=== PATIENT | female | born 1940 | race Caucasian/White ===

== ENCOUNTER → 2016-11-15 | Outpatient (CLI) | payer MEDICARE ==
--- NOTE | 2016-11-16 09:41 | MM ---
Reason for exam: screening (asymptomatic). Last mammogram was performed 1 year ago. History: Patient is postmenopausal and is nulliparous. Benign excisional biopsy of the left breast. Physical Findings: A clinical breast exam by your physician is recommended on an annual basis and results should be correlated with mammographic findings. MG Screening Mammo w CAD Bilateral CC and MLO view(s) were taken. Prior study comparison: November 13, 2015, bilateral MG screening mammo w CAD. November 12, 2014, bilateral MG screening mammo w CAD. There are scattered fibroglandular densities. No significant changes when compared with prior studies. ASSESSMENT: Benign, BI-RAD 2 RECOMMENDATION: Routine screening mammogram of both breasts in 1 year.
== END | disposition home or self-care (01) ==
LOC: RADMAMWWP 08:29
PROVIDERS: ATTEND Family Medicine
DX: Z12.31 Encounter for screening mammogram for malignant neoplasm of breast (principal)

== ENCOUNTER → 2017-11-16 | Outpatient (CLI) | payer MEDICARE ==
--- NOTE | 2017-11-16 12:26 | MM ---
Reason for exam: screening (asymptomatic). Last mammogram was performed 1 year ago. History: Patient is postmenopausal and is nulliparous. Benign excisional biopsy of the left breast. Physical Findings: A clinical breast exam by your physician is recommended on an annual basis and results should be correlated with mammographic findings. MG Screening Mammo w CAD Bilateral CC and MLO view(s) were taken. XCCL view(s) were taken of the right breast. Prior study comparison: November 15, 2016, bilateral MG screening mammo w CAD. November 13, 2015, bilateral MG screening mammo w CAD. There are scattered fibroglandular densities. No significant changes when compared with prior studies. ASSESSMENT: Benign, BI-RAD 2 RECOMMENDATION: Routine screening mammogram of both breasts in 1 year.
== END | disposition home or self-care (01) ==
LOC: RADMAMWWP 07:46
PROVIDERS: ATTEND Family Medicine
DX: Z12.31 Encounter for screening mammogram for malignant neoplasm of breast (principal)
CPT/HCPCS: 77067

== ENCOUNTER → 2018-10-03 | Outpatient (CLI) | payer MEDICARE ==
--- NOTE | 2018-10-03 10:54 | XR ---
EXAMINATION TYPE: XR chest 2V DATE OF EXAM: 10/03/2018 COMPARISON: NONE HISTORY: History of asthma with shortness of breath for 6 months. TECHNIQUE: Frontal and lateral views of the chest are obtained. FINDINGS: There is chronic parenchymal change without suspicious focal air space opacity, pleural ef fusion, or pneumothorax seen. The cardiac silhouette size is mildly enlarged. Multilevel spurring is seen in the thoracic spine best on lateral view. IMPRESSION: Chronic parenchymal change and mild cardiomegaly without acute pulmonary process.
== END | disposition home or self-care (01) ==
LOC: RADXRMAIN 10:33
PROVIDERS: ATTEND Family Medicine
DX: I51.7 Cardiomegaly (principal)
CPT/HCPCS: 71046

== ENCOUNTER → 2018-11-08 | Outpatient (CLI) | payer MEDICARE ==
--- NOTE | 2018-11-08 16:21 | BD ---
EXAMINATION TYPE: Axial Bone Density DATE OF EXAM: 11/08/2018 COMPARISON: 11.02.2009 CLINICAL HISTORY: 78 YR OLD FEMALE....ICD-10 CODE: Z13.820 OSTEOPOROSIS SCREENING Height: 58 Weight: 160 FRAX RISK QUESTIONS: Glucocorticoids (More than 3mos): YES (Ex: prednisone, prednisolone, methylprednisolone, dexamethasone, and hydrocortisone). RISK FACTORS HISTORY OF: Postmenopausal woman: YES AT AGE 54 Lost more than 2 inches in height since high school: YES Frequent falls: ELDERLY MEDICATIONS: Prednisone or other steroids: ASTHMA INHALERS, STEROIDAL, SYMBICORT AND VENTOLIN How Long: FOR YRS Additional Medications: BP MEDS, DIABETIC MEDS, REFLUX MEDS, STATINS FOR CHOLESTEROL, VIT D AND CALCI UM Additional History: HIATAL HERNIA, HYPERTENSION, DIABETIC, EXAM MEASUREMENTS: Bone mineral densitometry was performed using the [employer] System. Bone mineral density as measured about the Lumbar spine is: ----- L1-L4(G/cm2): 1.333 T Score Values are as follows: ----- L1: 0.6 ----- L2: -0.3 ----- L3: 1.1 ----- L4: 3.1 ----- L1-L4: 1.3 Bone mineral density has: Increased 18.5% since study of: 11.02.2009 Bone mineral density about the R hip (g/cm2): 1.025 Bone mineral density about the L hip (g/cm2): 0.917 T Score values are as follows: -----R Neck: -0.8 -----L Neck: -1.4 -----R Total: 0.1 -----L Total: -0.7 Bone mineral density has: Decreased -3.6% since study of: 11.02.2009 FRAX%s: THERE IS A 17.3% CHANCE FOR A MAJOR OSTEOPOROTIC FX AND A 4.0% FOR HIP.....PROBABILITY OF F X IN 10 YRS TIME IMPRESSION: Osteopenia (T Score between -2.5 and -1). There is slightly increased risk of fracture and the patient may be considered for treatment. Re-Screen 2-5 years. NOTE: T-SCORE=SD OF THE YOUNG ADULT MEAN.
== END ==
LOC: RADBDWWP 08:26
PROVIDERS: ATTEND Family Medicine
DX: M85.80 Other specified disorders of bone density and structure, unspecified site (principal)
CPT/HCPCS: 77080

== ENCOUNTER → 2018-11-19 | Outpatient (CLI) | payer MEDICARE ==
--- NOTE | 2018-11-20 09:16 | MM ---
Reason for exam: screening (asymptomatic). Last mammogram was performed 1 year ago. History: Patient is postmenopausal and is nulliparous. Benign excisional biopsy of the left breast. Physical Findings: A clinical breast exam by your physician is recommended on an annual basis and results should be correlated with mammographic findings. MG Screening Mammo w CAD Bilateral CC and MLO view(s) were taken. Prior study comparison: November 16, 2017, bilateral MG screening mammo w CAD. November 15, 2016, bilateral MG screening mammo w CAD. The breast tissue is heterogeneously dense. This may lower the sensitivity of mammography. There are benign appearing round linear calcifications in the right breast. There is no discrete abnormality. ASSESSMENT: Benign, BI-RAD 2 RECOMMENDATION: Routine screening mammogram of both breasts in 1 year.
== END | disposition home or self-care (01) ==
LOC: RADMAMWWP 08:29
PROVIDERS: ATTEND Family Medicine
DX: Z12.31 Encounter for screening mammogram for malignant neoplasm of breast (principal)
CPT/HCPCS: 77067

== ENCOUNTER 2018-11-26 14:42 | Inpatient (IN) | payer MEDICARE ==
[2018-11-26] MEDS ORDERED: SODIUM CHLORIDE 0.9% 500 ML 500 ML IV STA (15:37)
[2018-11-26] MEDS ORDERED: ALBUTEROL NEBULIZED 2.5 MG/3 ML INHALATION STA (15:37)
[2018-11-26] MEDS ORDERED: AZITHROMYCIN 500 MG in SODIUM CHLORIDE 0.9% 250 ML IVPB STA (15:37)
[2018-11-26] MEDS ORDERED: IPRATROPIUM 0.5 MG/2.5 ML NEBU INHALATION STA (15:37)
--- NOTE | 2018-11-26 15:42 | ED ---
General Adult HPI - General Chief complaint: Shortness of Breath Stated complaint: SOB Time Seen by Provider: 11/26/18 15:23 Source: EMS Mode of arrival: EMS Limitations: no limitations - History of Present Illness Initial comments: Dictation was produced using [employer] dictation software. please excuse any grammatical, word or spelling errors. Chief Complaint: 78-year-old female past medical history asthma, diabetes, dyslipidemia presents with dyspnea 2-3 days. History of Present Illness: Patient is 78-year-old female she states that her dyspnea had acutely worsened over the last 2-3 days. Over the last several weeks she was switched from Qvar to Symbicort by her primary care physician who is managing her asthma. Patient denies any ICU admission or endotracheal intubation secondary to asthma or COPD. Patient reports that her symptoms acutely worsened today. She's been using her rescue inhaler with no resolved. Patient denies any pain complaints. Denies any lower extremity pain or bilateral lower extremity edema. Denies any history of heart failure. Denies any constitutional symptoms. The ROS documented in this emergency department record has been reviewed and confirmed by me. Those systems with pertinent positive or negative responses have been documented in the HPI. All other systems are other negative and/or noncontributory. PHYSICAL EXAM: General Impression: Alert and oriented x3, mild respiratory distress HEENT: Normocephalic atraumatic, extra-ocular movements intact, pupils equal and reactive to light bilaterally, mucous membranes moist. Cardiovascular: Heart regular rate and rhythm, S1&S2 audible, no murmurs, rubs or gallops Chest: Bilateral lung wheezing Abdomen: Bowel sounds present, abdomen soft, non-tender, non-distended, no organomegaly Musculoskeletal: Pulses present and equal in all extremities, no peripheral edema Motor: Power 5/5 bilaterally, no focal deficits noted Neurological: CN II-XII grossly intact, no focal motor or sensory deficits noted Skin: Intact with no visualized rashes Psych: Normal affect and mood ED course: 78-year-old female presents with atypical presentation consistent with asthma versus COPD exacerbation. Vital signs upon arrival shows heart rate of 109. Patient denies any supplemental oxygen use at home. She is hypoxic despite supplemental oxygen. Laboratory evaluation obtained CBC, coag panel, blood gases obtained. Magnesium 1.4. Enzymes negative. Blood gases unremarkable. There is slight CO2 retention however she has normal pH. Chest x-ray shows no right middle lobe infiltrate. Patient given breathing treatments, steroids and antibiotics. Patient be admitted for COPD exacerbation and pneumonia with hypoxic respiratory failure. Pulmonology consult it. EKG interpretation: Ventricular rate 98, normal sinus rhythm, OR interval 134, care is 80, QTc 467. No OR prolongation, no QTC prolongation, no ST or T-wave changes noted. Overall, this EKG is unremarkable - Related Data Home Medications Medication Instructions Recorded Confirmed Albuterol Inhaler [Ventolin 1 - 2 puff INHALATION Q6HR PRN 09/08/15 11/26/18 Inhaler] Cholecalciferol [Vitamin D3] 2,000 unit PO DAILY 09/08/15 11/26/18 Loratadine [Claritin] 10 mg PO DAILY 09/08/15 11/26/18 Multivitamins, Thera [Theragran] 1 each PO DAILY@1200 09/08/15 11/26/18 Omeprazole [PriLOSEC] 20 mg PO AC-BRKFST 09/08/15 11/26/18 metFORMIN HCL [Glucophage] 500 mg PO BID 09/08/15 11/26/18 Albuterol Nebulized (Conc) 2.5 mg INHALATION RT-Q6H 11/26/18 11/26/18 [Ventolin Nebulized (Conc)] Budesonide/Formoterol Fumarate 2 puff INHALATION RT-BID 11/26/18 11/26/18 [Symbicort 160-4.5 Mcg Inhaler] Lovastatin [Mevacor] 60 mg PO HS 11/26/18 11/26/18 Olmesartan Medoxomil 40 g PO DAILY 11/26/18 11/26/18 Triamcinolone 0.1% Cream [Kenalog 1 applic TOPICAL BID 11/26/18 11/26/18 0.1% Cream] Vitamin E 1,000 unit PO DAILY 11/26/18 11/26/18 amLODIPine [Norvasc] 10 mg PO DAILY 11/26/18 11/26/18 Allergies Allergy/AdvReac Type Severity Reaction Status Date / Time aspirin Allergy Rash/Hives Verified 11/26/18 16:22 latex Allergy Rash/Hives Verified 11/26/18 16:22 Penicillins Allergy Unknown Verified 11/26/18 16:22 Childhood venom-honey bee Allergy Dyspnea, Verified 11/26/18 16:22 [bee venom (honey bee)] HIVES Review of Systems ROS Statement: Those systems with pertinent positive or pertinent negative responses have been documented in the HPI. ROS Other: All systems not noted in ROS Statement are negative. Past Medical History Past Medical History: Asthma, Diabetes Mellitus, GERD/Reflux, Hyperlipidemia, Hypertension History of Any Multi-Drug Resistant Organisms: None Reported Past Surgical History: Breast Surgery Additional Past Surgical History / Comment(s): EXC LT BREAST LUMP. COLONOSCOPY , EGD. Past Anesthesia/Blood Transfusion Reactions: No Reported Reaction Past Psychological History: No Psychological Hx Reported Smoking Status: Former smoker Past Alcohol Use History: None Reported Past Drug Use History: None Reported - Past Family History Mother Sister(s) Family Medical History: Cancer General Exam Limitations: no limitations Course Vital Signs 11/26/18 11/26/18 11/26/18 14:47 14:48 14:52 Temperature 99.6 F Pulse Rate 109 H Respiratory 16 22 Rate Blood Pressure 170/85 O2 Sat by Pulse 81 L 91 L Oximetry 11/26/18 11/26/18 11/26/18 15:00 15:03 15:30 Temperature Pulse Rate 105 H 101 H Respiratory 21 18 Rate Blood Pressure 170/85 158/82 O2 Sat by Pulse 91 L 93 L 90 L Oximetry 11/26/18 11/26/18 11/26/18 15:48 16:00 16:04 Temperature Pulse Rate 99 101 H 99 Respiratory 18 Rate Blood Pressure 159/85 O2 Sat by Pulse 96 Oximetry 11/26/18 17:27 Temperature Pulse Rate 101 H Respiratory Rate Blood Pressure O2 Sat by Pulse Oximetry Medical Decision Making - Lab Data Result diagrams: 11/26/18 15:00 Lab Results 11/26/18 11/26/18 11/26/18 Range/Units 15:00 15:00 15:00 WBC 8.1 (3.8-10.6) k/uL RBC 4.93 (3.80-5.40) m/uL Hgb 14.3 (11.4-16.0) gm/dL Hct 44.5 (34.0-46.0) % MCV 90.3 (80.0-100.0) fL MCH 29.0 (25.0-35.0) pg MCHC 32.1 (31.0-37.0) g/dL RDW 14.1 (11.5-15.5) % Plt Count 276 (150-450) k/uL Neutrophils % 75 % Lymphocytes % 13 % Monocytes % 5 % Eosinophils % 4 % Basophils % 1 % Neutrophils # 6.0 (1.3-7.7) k/uL Lymphocytes # 1.1 (1.0-4.8) k/uL Monocytes # 0.4 (0-1.0) k/uL Eosinophils # 0.3 (0-0.7) k/uL Basophils # 0.0 (0-0.2) k/uL PT 10.1 (9.0-12.0) sec INR 0.9 (<1.2) VBG pH (7.31-7.41) VBG pCO2 (37-51) mmHg VBG HCO3 (24-28) mmol/L Magnesium 1.4 L (1.6-2.3) mg/dL Troponin I (0.000-0.034) ng/mL 11/26/18 11/26/18 Range/Units 15:00 16:05 WBC (3.8-10.6) k/uL RBC (3.80-5.40) m/uL Hgb (11.4-16.0) gm/dL Hct (34.0-46.0) % MCV (80.0-100.0) fL MCH (25.0-35.0) pg MCHC (31.0-37.0) g/dL RDW (11.5-15.5) % Plt Count (150-450) k/uL Neutrophils % % Lymphocytes % % Monocytes % % Eosinophils % % Basophils % % Neutrophils # (1.3-7.7) k/uL Lymphocytes # (1.0-4.8) k/uL Monocytes # (0-1.0) k/uL Eosinophils # (0-0.7) k/uL Basophils # (0-0.2) k/uL PT (9.0-12.0) sec INR (<1.2) VBG pH 7.33 (7.31-7.41) VBG pCO2 54 H (37-51) mmHg VBG HCO3 28 (24-28) mmol/L Magnesium (1.6-2.3) mg/dL Troponin I <0.012 (0.000-0.034) ng/mL Disposition Clinical Impression: COPD (chronic obstructive pulmonary disease), Pneumonia, Acute respiratory failure with hypoxia Disposition: ADMITTED IP TO THIS HOSP Condition: Fair Referrals: Senthil Angel DO [Primary Care Provider] - 1-2 days Decision Time: 17:36
[2018-11-26 15:54] LABS: Basophils % (A) 1 %; Eosinophils # (A) 0.3 k/uL (0-0.7); Eosinophils % (A) 4 %; HCT 44.5 % (34.0-46.0); HGB 14.3 gm/dL (11.4-16.0); Lymphocytes # (A) 1.1 k/uL (1.0-4.8); Lymphocytes % (A) 13 %; MCHC 32.1 g/dL (31.0-37.0); MCV 90.3 fL (80.0-100.0); Mean Platelet Volume 7.1; Monocytes # (A) 0.4 k/uL (0-1.0); Monocytes % (A) 5 %; Neutrophils % (A) 75 %; Platelet Count 276 k/uL (150-450); RBC 4.93 m/uL (3.80-5.40); RDW 14.1 % (11.5-15.5); WBC 8.1 k/uL (3.8-10.6)
[2018-11-26 15:58] LABS: INR 0.9 (<1.2); Prothrombin Time 10.1 sec (9.0-12.0)
[2018-11-26] MEDS: MAGNESIUM SULFATE-D5W PMX 1 GM in DEXTROSE/WATER 1 100ML.BAG IVPB SCH ×2 (15:58→17:03)
[2018-11-26 16:22] LABS: VBG PH 7.33 (7.31-7.41)
--- NOTE | 2018-11-26 16:53 | XR ---
EXAMINATION TYPE: XR chest 1V portable DATE OF EXAM: 11/26/2018 COMPARISON: Chest x-ray October 03, 2018 HISTORY: History of COPD with difficulty in breathing TECHNIQUE: Single AP portable frontal upright view of the chest is obtained. FINDINGS: There is new right basilar opacity silhouetting right minor fissure. There is partial silh ouetting of right heart border. The cardiac silhouette size is mildly enlarged. New mild central vasc ular congestion felt present. No pleural effusion or pneumothorax is seen bilaterally. The osseous s tructures are intact. IMPRESSION: New right basilar probable middle lobe acute infiltrate. Cardiomegaly with suspected new mild central vascular congestion. Suspect also mild CHF exacerbation. Correlate clinically for both.
[2018-11-26] MEDS ORDERED: IPRATROPIUM-ALBUTEROL 3 ML NEB INHALATION STA (17:05)
[2018-11-26 18:03] LABS: Calcium 9.4 mg/dL (8.4-10.2); Potassium 5.6 mmol/L (3.5-5.1)
[2018-11-26] MEDS ORDERED: IPRATROPIUM-ALBUTEROL 3 ML NEB INHALATION SCH (20:00)
[2018-11-26 20:52] LABS: Glucose,Whole Blood 131 mg/dL (75-99)
[2018-11-26] MEDS: metFORMIN 500 MG TAB PO SCH (21:03)
[2018-11-26] MEDS: INSULIN ASPART (NovoLOG) 100 UNIT/ML VIAL SQ SCH (21:03)
[2018-11-26] MEDS: ATORVASTATIN 10 MG TAB PO SCH (21:12)
[2018-11-26] MEDS: TRIAMCINOLONE 0.1% CREAM 80 GM TUBE TOPICAL SCH (21:12)
[2018-11-26] MEDS: methylPREDNISolone SOD SUCCI 40 MG/ML 1 ML VIAL IV SCH (23:28)
[2018-11-26] MEDS: IPRATROPIUM-ALBUTEROL 3 ML NEB INHALATION SCH (23:33)
--- NOTE | 2018-11-26 23:58 | HP ---
HISTORY AND PHYSICAL DATE OF ADMISSION: 11/26/2018. DATE OF SERVICE: 11/26/2018. PRESENTING COMPLAINT: Short of breath. HISTORY OF PRESENTING COMPLAINT: A very pleasant 78-year-old patient of Dr. Angel. Chronic stable medical conditions include diabetes, GERD, hypertension, hyperlipidemia. Did have asthma as a child and patient was a smoker for about 30 years. The patient for 2 weeks has been increasingly more short of breath, wheezing, bringing up some clear mucus. No fever. No chills. Appetite is okay. Rather short of breath. Admitted for the same. REVIEW OF SYSTEMS: CONSTITUTIONAL: Tired. HEENT: As above. RESPIRATORY: As above. CARDIOVASCULAR: None. GASTROINTESTINAL: Heartburn. GENITOURINARY: None. MUSCULOSKELETAL: None. DERMATOLOGIC/HEMATOLOGIC/LYMPHATIC: None. PSYCHIATRY: None. NEUROLOGIC: None. PAST MEDICAL HISTORY: Asthma, diabetes, GERD, hypertension, hyperlipidemia. PAST SURGICAL HISTORY: Left breast lump removed, colonoscopy, EGD. SOCIAL HISTORY: The patient smoked for about 30 years, stopped in . . FAMILY HISTORY: Cancer, type unknown. HOME MEDICATIONS: 1. Glucophage 500 mg b.i.d. 2. Norvasc 10 mg p.o. daily. 3. Vitamin D 1000 units p.o. daily. 4. Kenalog 0.1% topical b.i.d. 5. Prilosec 20 mg with breakfast. 6. 40 grams daily. 7. Theragran 1 tab p.o. daily. 8. Mevacor 60 mg at bedtime. 9. Claritin 10 mg p.o. daily. 10.Vitamin D3, 2000 units p.o. daily. 11.Symbicort 160/4.5, 2 puffs b.i.d. 12.Ventolin 2.5 every 6 hours p.r.n. ALLERGIES: ASPIRIN, LASIX, PENICILLIN, HONEY BEE. PHYSICAL EXAMINATION: Vital signs on presentation, temperature 99.6, pulse 109, respirations 16, blood pressure 130/85, pulse ox 81 percent on room air. GENERAL APPEARANCE: Well built. BMI 31.2, sitting up, short of breath. EYES: Pupils equal. Conjunctivae normal. HEENT: External appearance of nose and ears normal. Oral cavity normal. NECK: JVD not raised. Mass not palpable. Respiratory effort increased. Accessory muscles are working. Not able to speak in full sentences. CARDIOVASCULAR: 1st and 2nd sounds normal. No edema. LUNGS: Diminished breath sounds, prolonged expiration and wheezing. CARDIOVASCULAR: 1st and 2nd heart sounds. No edema. ABDOMEN: Soft, nontender. Liver and spleen not palpable. LYMPHATIC: No lymph nodes palpable in the neck or axillae. PSYCHIATRY: Alert and oriented x3. Mood and affect slightly anxious-appearing. NEUROLOGICAL: Pupils equal. Cranial nerves grossly intact. Power and sensation grossly intact. INVESTIGATIONS: White count 8.1, hemoglobin 14.3, potassium 5.6, BUN 9, creatinine 0.84. Troponin less than 0.012. EKG tracing personally reviewed by me shows normal sinus rhythm. Chest x- ray film cannot be reviewed as the system is down. Report is talking about right lower lobe infiltrate, some venous prominence. ASSESSMENT: 1. 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 2. Right lower lobe pneumonia, suspect gram-negative organism, POA. 3. Diabetes mellitus type 2, on oral hypoglycemic. 4. Gastroesophageal reflux disease. 5. Hyperlipidemia. 6. Essential hypertension. 7. Obesity; BMI 31.2. PLAN: Patient is started on DuoNeb, IV steroids. Home medications are resumed. Will get a 2- D echocardiogram to assess LV function and also add a proBNP. Care was discussed with the patient. Questions answered. MMODL / IJN: [id number] /
[2018-11-27] MEDS: IPRATROPIUM-ALBUTEROL 3 ML NEB INHALATION SCH ×5 (03:29→20:25)
[2018-11-27 07:09] LABS: Glucose,Whole Blood 178 mg/dL (75-99)
[2018-11-27] MEDS: INSULIN ASPART (NovoLOG) 100 UNIT/ML VIAL SQ SCH ×8 (07:21→21:08)
[2018-11-27] MEDS: methylPREDNISolone SOD SUCCI 40 MG/ML 1 ML VIAL IV SCH ×2 (07:30→16:00)
[2018-11-27] MEDS: ENOXAPARIN 40 MG/0.4 ML SYRINGE SQ SCH (07:30)
[2018-11-27] MEDS: metFORMIN 500 MG TAB PO SCH ×2 (07:31→17:06)
[2018-11-27] MEDS: MULTIVITAMINS, THERA 1 EACH TAB PO SCH (07:31)
[2018-11-27] MEDS: AZITHROMYCIN 500 MG TAB PO SCH (07:31)
[2018-11-27] MEDS: LOSARTAN 50 MG TAB PO SCH (07:31)
[2018-11-27] MEDS: amLODIPine 10 MG TAB PO SCH (07:31)
[2018-11-27] MEDS: PANTOPRAZOLE 40 MG TABLET PO SCH (07:31)
[2018-11-27] MEDS: LORATADINE 10 MG TAB PO SCH (07:31)
[2018-11-27] MEDS: TRIAMCINOLONE 0.1% CREAM 80 GM TUBE TOPICAL SCH ×2 (07:32→21:08)
[2018-11-27 08:15] LABS: Calcium 9.5 mg/dL (8.4-10.2); Potassium 5.5 mmol/L (3.5-5.1)
[2018-11-27] MEDS ORDERED: predniSONE 20 MG TAB PO SCH (09:00)
[2018-11-27] MEDS ORDERED: NON-FORMULARY DRUG (Vitamin E [Vitamin E] 1,000 UNIT) PO SCH (09:00)
[2018-11-27] MEDS: BUDESONIDE 1 MG/2 ML NEBU INHALATION SCH ×2 (09:56→20:25)
[2018-11-27 11:45] LABS: Glucose,Whole Blood 148 mg/dL (75-99)
--- NOTE | 2018-11-27 12:15 | ECHOF ---
Referral Reason:assess LV unction MEASUREMENTS -------- HEIGHT: 152.4 cm WEIGHT: 72.6 kg BP: 124/80 RVIDd: 2.6 cm (< 3.3) IVSd: 1.2 cm (0.6 - 1.1) LVIDd: 5.2 cm (3.9 - 5.3) LVPWd: 1.0 cm (0.6 - 1.1) IVSs: 1.7 cm LVIDs: 2.6 cm LVPWs: 1.7 cm LAESV Index (A-L): 28.84 ml/m Ao Diam: 3.4 cm (2.0 - 3.7) AV Cusp: 2.2 cm (1.5 - 2.6) LA Diam: 2.8 cm (2.7 - 3.8) MV EXCURSION: 9.024 mm (> 18.000) MV EF SLOPE: 67 mm/s (70 - 150) EPSS: 1.7 cm MV E Rohit: 0.98 m/s MV DecT: 135 ms MV A Rohit: 1.17 m/s MV E/A Ratio: 0.84 AR PHT: 184 ms RAP: 5.00 mmHg RVSP: 30.92 mmHg FINDINGS -------- Sinus rhythm with extra systolic beats. This was a technically good study. The left ventricular size is normal. Left ventricular wall thickness is normal. Overall left vent ricular systolic function is mild-moderately impaired with, an EF between 40 - 45 %. The right ventricle is normal in size. Normal LA size by volume 22+/-6 ml/m2. The right atrial size is normal. Aortic valve is trileaflet and is mildly thickened. There is mild aortic regurgitation. Mild mitral annular calcification present. Severe mitral regurgitation is present. Mild tricuspid regurgitation present. There is no evidence of pulmonary hypertension. The right v entricular systolic pressure, as measured by Doppler, is 30.92mmHg. There is no pulmonic regurgitation present. The aortic root size is normal. Normal inferior vena cava with normal inspiratory collapse consistent with estimated right atrial pre ssure of 5 mmHg. There is no pericardial effusion. CONCLUSIONS -------- 1. Sinus rhythm with extra systolic beats. 2. This was a technically good study. 3. The left ventricular size is normal. 4. Left ventricular wall thickness is normal. 5. Overall left ventricular systolic function is mild-moderately impaired with, an EF between 40 - 45 %. 6. The right ventricle is normal in size. 7. Normal LA size by volume 22+/-6 ml/m2. 8. Aortic valve is trileaflet and is mildly thickened. 9. There is mild aortic regurgitation. 10. Mild mitral annular calcification present. 11. Severe mitral regurgitation is present. 12. Mild tricuspid regurgitation present. 13. There is no evidence of pulmonary hypertension. 14. There is no pulmonic regurgitation present. 15. The aortic root size is normal. 16. Normal inferior vena cava with normal inspiratory collapse consistent with estimated right atrial pressure of 5 mmHg. 17. There is no pericardial effusion. HIGH SCHOOL SOCIAL STUDIES TEACHER: Gabby Delaney RDCS
[2018-11-27] MEDS: FUROSEMIDE 10 MG/ML 4 ML VIAL IV SCH ×2 (12:51→21:07)
--- NOTE | 2018-11-27 13:58 | P.CNPUL ---
History of Present Illness Consult date: 11/27/18 Requesting physician: Gus Garza Reason for consult: dyspnea, asthma, COPD, hypoxemia, pneumonia, abnormal CXR/CT Chief complaint: Acute hypoxemic respiratory failure related to possible pneumonia History of present illness: This is a 78-year-old white female patient of Dr. Brittani Angel with past medical history of chronic bronchial asthma, hypertension, hyperlipidemia, past history of nicotine dependence, currently in remission, she quit smoking 21 years ago, but did smoke for 33 years 1-2 packs per day. Patient presents to the hospital on 11/26/2018 with complaints of worsening shortness of breath, chest tightness. She denied any fever or chills, at times she was able to bring up some thick phlegm. She states her PCP had switched her from Qvar to Symbicort in mid September, because patient was complaining of increased shortness of breath. She had been on Qvar for about a year, and her dyspnea was not well-controlled on it. When she was switched to Symbicort patient noticed immediate worsening in her dyspnea, increased wheezing, and chest tightness. Patient stopped it, and did try again resuming the Symbicort last week. However she experienced same symptoms of increased wheezing, chest tightness, and shortness of breath with Symbicort. Does not normally wear oxygen, but her pulse ox was noted to be at 70% at Dr. Angel's office, hence patient was sent to the emergency department for evaluation. Chest x-ray was completed and showed a new right basilar and probable right middle lobe infiltrate, cardiomegaly with mild central vessel congestion. EKG showed normal sinus rhythm without acute ischemic changes. Labs showed white blood cell count of 8.1, hemoglobin of 14.3, serum sodium was 129, potassium is 5.6, chloride was 92, CO2 is 26, BUN was 9, creatinine was 0.84. Troponin was negative 1, proBNP was elevated at 3020, influenza screen was negative. Patient remains on 4 L of oxygen and her pulse ox is around 92%, she is still short of breath and still has chest tightness, denies any fever or chills. She was started on antibiotic coverage in the form of Zithromax, nebulized bronchodilators and IV steroids. Review of Systems All systems: negative Constitutional: Denies chills, Denies fever Eyes: denies blurred vision, denies pain Ears, nose, mouth and throat: Denies headache, Denies sore throat Cardiovascular: Denies chest pain, Denies shortness of breath Respiratory: Reports congestion, Reports cough with sputum, Reports dyspnea, Reports respiratory infections, Reports wheezing, Denies cough Gastrointestinal: Denies abdominal pain, Denies diarrhea, Denies nausea, Denies vomiting Genitourinary: Denies dysuria, Denies hematuria Musculoskeletal: Denies myalgias Integumentary: Denies pruritus, Denies rash Neurological: Denies numbness, Denies weakness Psychiatric: Denies anxiety, Denies depression Endocrine: Denies fatigue, Denies weight change Past Medical History Past Medical History: Asthma, Diabetes Mellitus, Eye Disorder, GERD/Reflux, Hyperlipidemia, Hypertension History of Any Multi-Drug Resistant Organisms: None Reported Past Surgical History: Breast Surgery Additional Past Surgical History / Comment(s): EXC LT BREAST LUMP. COLONOSCOPY , EGD. Past Anesthesia/Blood Transfusion Reactions: No Reported Reaction Past Psychological History: No Psychological Hx Reported Smoking Status: Former smoker Past Alcohol Use History: None Reported Additional Past Alcohol Use History / Comment(s): (SMOKED [id number] EST) Past Drug Use History: None Reported - Past Family History Mother Sister(s) Family Medical History: Cancer Medications and Allergies Home Medications Medication Instructions Recorded Confirmed Type Albuterol Inhaler [Ventolin 1 - 2 puff INHALATION Q6HR PRN 09/08/15 11/26/18 History Inhaler] Cholecalciferol [Vitamin D3] 2,000 unit PO DAILY 09/08/15 11/26/18 History Loratadine [Claritin] 10 mg PO DAILY 09/08/15 11/26/18 History Multivitamins, Thera [Theragran] 1 each PO DAILY@1200 09/08/15 11/26/18 History Omeprazole [PriLOSEC] 20 mg PO AC-BRKFST 09/08/15 11/26/18 History metFORMIN HCL [Glucophage] 500 mg PO BID 09/08/15 11/26/18 History Albuterol Nebulized (Conc) 2.5 mg INHALATION RT-Q6H 11/26/18 11/26/18 History [Ventolin Nebulized (Conc)] Budesonide/Formoterol Fumarate 2 puff INHALATION RT-BID 11/26/18 11/26/18 History [Symbicort 160-4.5 Mcg Inhaler] Lovastatin [Mevacor] 60 mg PO HS 11/26/18 11/26/18 History Olmesartan Medoxomil 40 g PO DAILY 11/26/18 11/26/18 History Triamcinolone 0.1% Cream [Kenalog 1 applic TOPICAL BID 11/26/18 11/26/18 History 0.1% Cream] Vitamin E 1,000 unit PO DAILY 11/26/18 11/26/18 History amLODIPine [Norvasc] 10 mg PO DAILY 11/26/18 11/26/18 History Allergies Allergy/AdvReac Type Severity Reaction Status Date / Time aspirin Allergy Rash/Hives Verified 11/26/18 16:22 latex Allergy Rash/Hives Verified 11/26/18 16:22 Penicillins Allergy Unknown Verified 11/26/18 16:22 Childhood venom-honey bee Allergy Dyspnea, Verified 11/26/18 16:22 [bee venom (honey bee)] HIVES Physical Exam Vitals: Vital Signs Temp Pulse Pulse Resp BP BP Pulse Ox 11/27/18 10:15 100 11/27/18 09:56 96 11/27/18 07:02 18 11/27/18 07:00 97.4 F L 98 18 124/80 92 L 11/27/18 03:45 100 11/27/18 03:29 100 11/27/18 00:30 98.5 F 98 15 132/71 93 L 11/27/18 00:11 19 11/26/18 23:44 109 H 18 11/26/18 23:33 112 H 20 11/26/18 21:00 101 H 18 161/70 92 L 11/26/18 20:22 97 16 11/26/18 20:12 98 16 91 L 11/26/18 20:00 101 H 18 11/26/18 19:33 98.1 F 101 H 16 170/64 87 L 11/26/18 18:59 98.1 F 98 18 170/64 89 L 11/26/18 18:35 97.8 F 107 H 18 151/77 86 L 11/26/18 18:00 100 18 151/85 93 L 11/26/18 17:34 104 H 11/26/18 17:30 100 20 149/84 93 L 11/26/18 17:27 101 H 03/04/19 17:00 107 H 18 153/79 90 L 11/26/18 16:30 105 H 18 139/104 89 L 11/26/18 16:04 99 11/26/18 16:00 101 H 18 159/85 96 11/26/18 15:48 99 11/26/18 15:30 101 H 18 158/82 90 L 11/26/18 15:03 93 L 11/26/18 15:00 105 H 21 170/85 91 L 11/26/18 14:52 22 11/26/18 14:48 99.6 F 109 H 16 170/85 91 L 11/26/18 14:47 81 L Intake and Output 11/26/18 11/27/18 11/27/18 22:59 06:59 14:59 Intake Total 540 540 Balance 540 540 Intake: Oral 540 540 Other: Voiding Method Bedside Commode Bedside Commode # Voids 3 1 GENERAL EXAM: Alert, pleasant, 78-year-old white female on 4 L of oxygen with pulse ox of 92% comfortable in no apparent distress. HEAD: Normocephalic/atraumatic. EYES: Normal reaction of pupils, equal size. Conjunctiva pink, sclera white. NOSE: Clear with pink turbinates. THROAT: No erythema or exudates. NECK: No masses, no JVD, no thyroid enlargement, no adenopathy. CHEST: No chest wall deformity. Symmetrical expansion. LUNGS: Equal air entry with diminished breath sounds, prolongation of expiratory phase, diffuse wheezes and rhonchi CVS: Regular rate and rhythm, normal S1 and S2, no gallops, no murmurs, no rubs ABDOMEN: Soft, nontender. No hepatosplenomegaly, normal bowel sounds, no guarding or rigidity. EXTREMITIES: No clubbing, no edema, no cyanosis, 2+ pulses and upper and lower extremities. MUSCULOSKELETAL: Muscle strength and tone normal. SPINE: No scoliosis or deformity SKIN: No rashes CENTRAL NERVOUS SYSTEM: Alert and oriented -3. No focal deficits, tone is normal in all 4 extremities. PSYCHIATRIC: Alert and oriented -3. Appropriate affect. Intact judgment and insight. Results - Laboratory Findings CBC and BMP: 11/26/18 15:00 11/27/18 07:19 PT/INR, D-dimer PT 10.1 sec (9.0-12.0) 11/26/18 15:00 INR 0.9 (<1.2) 11/26/18 15:00 Abnormal lab findings: Abnormal Labs 11/26/18 11/26/18 11/26/18 15:00 15:00 16:05 VBG pCO2 54 H Sodium 129 L Potassium 5.6 H Chloride 92 L Glucose 136 H POC Glucose (mg/dL) Magnesium 1.4 L 11/26/18 11/27/18 11/27/18 20:41 06:58 07:19 VBG pCO2 Sodium 132 L Potassium 5.5 H Chloride 92 L Glucose 192 H POC Glucose (mg/dL) 131 H 178 H Magnesium 11/27/18 11:44 VBG pCO2 Sodium Potassium Chloride Glucose POC Glucose (mg/dL) 148 H Magnesium - Diagnostic Findings Chest x-ray: report reviewed, image reviewed Additional studies: EKG reviewed, echocardiogram showed an EF of 40-45%, and severe mitral valve regurgitation Assessment and Plan Plan: Assessment: #1. Acute hypoxemic respiratory failure, multifactorial, chest x-ray showed new right basilar and right middle lobe acute infiltrate, possibly related to a pneumonic infiltrate, and mild central vascular congestion, fluid in the fissure suggestive of acute congestive heart failure #2. Severe mitral regurgitation #3. Cardiomyopathy, echocardiogram showed EF of 40-45% #4. Chronic bronchial asthma, with recent switch from Qvar to Symbicort for symptoms of worsening dyspnea, attributed to poor asthma control, could have been related to underlying valvular dysfunction #5. Past history of smoking, patient quit 21 years ago, but carries 33 years of smoking of one or 2 packs per day #6. Hyponatremia, improving #7. Hyperkalemia, could be related to metabolic alkalosis, hypoxemic respiratory failure #8. Hypertension, hyperlipidemia Plan: Continue with nebulized bronchodilators, will add Rocephin for antibiotic coverage, we'll send a sputum for culture, influenza screen was negative, echocardiogram results were noted. We'll give the patient Lasix 40 mg every 12 hours, and we will repeat chest x-ray tomorrow. Will continue with nebulized treatments, IV steroids, and antibiotics. I performed a history & physical examination of the patient and discussed their management with my nurse practitioner, Felicita Gomes. I reviewed the nurse practitioner's note and agree with the documented findings and plan of care. Lung sounds are positive for diminished breath sounds, with scattered rhonchi and wheezes. The findings and the impression was discussed with the patient. I attest to the documentation by the nurse practitioner. Time with Patient: Greater than 30
[2018-11-27 16:35] LABS: Glucose,Whole Blood 176 mg/dL (75-99)
[2018-11-27 19:59] LABS: Glucose,Whole Blood 151 mg/dL (75-99)
[2018-11-27] MEDS: ATORVASTATIN 10 MG TAB PO SCH (21:07)
[2018-11-28] MEDS: IPRATROPIUM-ALBUTEROL 3 ML NEB INHALATION SCH ×6 (00:01→21:14)
[2018-11-28] MEDS: methylPREDNISolone SOD SUCCI 40 MG/ML 1 ML VIAL IV SCH ×4 (00:22→23:27)
--- NOTE | 2018-11-28 02:04 | PN ---
PROGRESS NOTE DATE OF SERVICE: November 27, 2018. PRESENTING COMPLAINT: Short of breath. INTERVAL HISTORY: The patient admitted with COPD exacerbation, pneumonia and also felt to have CHF exacerbation. 2D echocardiogram showing EF of 30 to 35%. Breathing is slightly better. Some cough with sputum is still present. Did tolerate a little bit of diet. REVIEW OF SYSTEMS: Done for constitutional, cardiovascular, GI, pulmonary; relevant findings as above. CURRENT MEDICATIONS: Reviewed that include DuoNeb, IV ceftriaxone, IV Lasix and IV Solu-Medrol. PHYSICAL EXAMINATION: VITAL SIGNS: Temperature 98, pulse 104, respiration 20, blood pressure 132/75, pulse ox 93 percent on oxygen. GENERAL APPEARANCE: Sitting up awake. EYES: Pupils equal. Conjunctivae normal. NECK: JVD unable to assess. Mass not palpable. RESPIRATORY: Effort increased. LUNGS: Decreased breath sounds, prolonged expiration and wheezing. CARDIOVASCULAR: 1st and 2nd sounds normal. No edema. ABDOMEN: Soft, nontender. Liver and spleen not palpable. PSYCHIATRY: Alert and oriented x3. Mood and affect normal. INVESTIGATIONS: Potassium 5.5, BUN 9, creatinine 0.77. ProBNP is 3020. 2D echo shows EF of 40-45 percent. ASSESSMENT: 1. 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 2. Smoker with acute exacerbation. 3. Right lobe pneumonia suspect gram-negative organism, POA. 4. Acute congestive heart failure exacerbation from systolic dysfunction EF 40-45 percent. 5. Severe mitral regurgitation, nonrheumatic. 6. Diabetes mellitus type 2 on oral hypoglycemic. 7. Gastroesophageal reflux disease. 8. Hyperlipidemia. 9. Essential hypertension. 10.Obesity; BMI 31.2. PLAN: Patient is slow to respond. Keep the patient on current antibiotics. Bronchodilators. Lasix. Follow. MMODL / IJN: [id number] /
[2018-11-28 07:01] LABS: Glucose,Whole Blood 169 mg/dL (75-99)
[2018-11-28] MEDS: amLODIPine 10 MG TAB PO SCH (07:26)
[2018-11-28] MEDS: LORATADINE 10 MG TAB PO SCH (07:26)
[2018-11-28] MEDS: PANTOPRAZOLE 40 MG TABLET PO SCH (07:27)
[2018-11-28] MEDS: metFORMIN 500 MG TAB PO SCH ×2 (07:27→17:12)
[2018-11-28] MEDS: LOSARTAN 50 MG TAB PO SCH (07:27)
[2018-11-28] MEDS: AZITHROMYCIN 500 MG TAB PO SCH (07:27)
[2018-11-28] MEDS: FUROSEMIDE 10 MG/ML 4 ML VIAL IV SCH (07:30)
[2018-11-28] MEDS: ENOXAPARIN 40 MG/0.4 ML SYRINGE SQ SCH (07:33)
[2018-11-28] MEDS: INSULIN ASPART (NovoLOG) 100 UNIT/ML VIAL SQ SCH ×8 (07:34→21:11)
[2018-11-28 07:57] LABS: HCT 42.1 % (34.0-46.0); HGB 13.5 gm/dL (11.4-16.0); MCH 28.3 pg (25.0-35.0); MCV 88.5 fL (80.0-100.0); Mean Platelet Volume 7.3; Platelet Count 285 k/uL (150-450); RBC 4.76 m/uL (3.80-5.40); RDW 13.9 % (11.5-15.5)
[2018-11-28] MEDS: BUDESONIDE 1 MG/2 ML NEBU INHALATION SCH ×2 (08:03→21:14)
[2018-11-28 08:15] LABS: Calcium 9.6 mg/dL (8.4-10.2)
--- NOTE | 2018-11-28 08:19 | XR ---
EXAMINATION TYPE: XR chest 1V portable DATE OF EXAM: 11/28/2018 COMPARISON: 11/26/2018 INDICATION: CHF TECHNIQUE: Single frontal view of the chest is obtained. FINDINGS: The heart size is moderately prominent. The pulmonary vasculature is within normal limits. There is a triangular opacity below the minor fissure on the right. This is slightly improved from co mparison. Some mild streak opacities are in the left upper lung field which have developed from prior study may be some atelectasis. IMPRESSION: 1. Improving right lower lobe perihilar infiltrate. 2. Mild late atelectasis left upper lung field 3. Cardiomegaly. 4. Continued follow-up is recommended.
--- NOTE | 2018-11-28 09:26 | P.PN ---
Subjective Progress Note Date: 11/28/18 Principal diagnosis: Dyspnea, COPD, asthma exacerbation, hypoxemia, CHF with systolic dysfunction, pneumonia This is a 78-year-old white female patient of Dr. Brittani Angel with past medical history of chronic bronchial asthma, hypertension, hyperlipidemia, past history of nicotine dependence, currently in remission, she quit smoking 21 years ago, but did smoke for 33 years 1-2 packs per day. Patient presents to the hospital on 11/26/2018 with complaints of worsening shortness of breath, chest tightness. She denied any fever or chills, at times she was able to bring up some thick phlegm. She states her PCP had switched her from Qvar to Symbicort in mid September, because patient was complaining of increased shortness of breath. She had been on Qvar for about a year, and her dyspnea was not well- controlled on it. When she was switched to Symbicort patient noticed immediate worsening in her dyspnea, increased wheezing, and chest tightness. Patient stopped it, and did try again resuming the Symbicort last week. However she experienced same symptoms of increased wheezing, chest tightness, and shortness of breath with Symbicort. Does not normally wear oxygen, but her pulse ox was noted to be at 70% at Dr. Angel's office, hence patient was sent to the em ergency department for evaluation. Chest x-ray was completed and showed a new right basilar and probable right middle lobe infiltrate, cardiomegaly with mild central vessel congestion. EKG showed normal sinus rhythm without acute ischemic changes. Labs showed white blood cell count of 8.1, hemoglobin of 14.3, serum sodium was 129, potassium is 5.6, chloride was 92, CO2 is 26, BUN was 9, creatinine was 0.84. Troponin was negative 1, proBNP was elevated at 3020, influenza screen was negative. Patient remains on 4 L of oxygen and her pulse ox is around 92%, she is still short of breath and still has chest tightness, denies any fever or chills. She was started on antibiotic coverage in the form of Zithromax, nebulized bronchodilators and IV steroids. On 11/28/2018 patient seen in follow-up on medical surgical floor. She is awake and alert, in no acute distress, lung sounds reveal more bronchospastic rounds on today's exam compared to yesterday, no rales, no rhonchi. He is on 4 L of oxygen, with a pulse ox of 90-92%, still has exertional dyspnea with desaturation, low-grade fever of 99.0F this morning, patient has been diuresed overnight, and today's chest x-ray has been reviewed with Dr. Rebollar, it shows improvement in the appearance of right lower lobe perihilar infiltrate, there is persistent mild atelectasis at the left upper lung field, cardiomegaly. Today's lab work has been reviewed, and white blood cell count is 8.0, hemoglobin is 13.5, sodium is 129, potassium is 5.0, chloride is 87, B1 is 20 and creatinine is 1.19. Influenza screen was negative. No complaints of chest pain, not bringing up any sputum. Objective - Vital Signs Vital signs: Vital Signs Temp 99.0 F 11/28/18 07:00 Pulse 108 H 11/28/18 08:23 Resp 19 11/28/18 07:00 BP 132/70 11/28/18 07:00 Pulse Ox 92 L 11/28/18 08:06 Intake & Output 11/27/18 11/28/18 11/28/18 18:59 06:59 18:59 Output Total 350 Balance -350 Output: Urine 350 Other: Voiding Method Bedside Commode Bedside Commode # Voids 1 2 - Exam GENERAL EXAM: Alert, pleasant, 78-year-old white female on 4 L of oxygen with pulse ox of 92% comfortable in no apparent distress. HEAD: Normocephalic/atraumatic. EYES: Normal reaction of pupils, equal size. Conjunctiva pink, sclera white. NOSE: Clear with pink turbinates. THROAT: No erythema or exudates. NECK: No masses, no JVD, no thyroid enlargement, no adenopathy. CHEST: No chest wall deformity. Symmetrical expansion. LUNGS: Equal air entry with diminished breath sounds, prolongation of expiratory phase, diffuse wheezes CVS: Regular rate and rhythm, normal S1 and S2, no gallops, no murmurs, no rubs ABDOMEN: Soft, nontender. No hepatosplenomegaly, normal bowel sounds, no guarding or rigidity. EXTREMITIES: No clubbing, no edema, no cyanosis, 2+ pulses and upper and lower extremities. MUSCULOSKELETAL: Muscle strength and tone normal. SPINE: No scoliosis or deformity SKIN: No rashes CENTRAL NERVOUS SYSTEM: Alert and oriented -3. No focal deficits, tone is normal in all 4 extremities. PSYCHIATRIC: Alert and oriented -3. Appropriate affect. Intact judgment and insight. - Labs CBC & Chem 7: 11/28/18 07:12 11/28/18 07:12 Labs: Abnormal Lab Results - Last 24 Hours (Table) 11/27/18 11/27/18 11/27/18 Range/Units 11:44 16:34 19:43 Sodium (137-145) mmol/L Chloride (98-107) mmol/L BUN (7-17) mg/dL Creatinine (0.52-1.04) mg/dL Glucose (74-99) mg/dL POC Glucose (mg/dL) 148 H 176 H 151 H (75-99) mg/dL 11/28/18 11/28/18 Range/Units 06:59 07:12 Sodium 129 L (137-145) mmol/L Chloride 87 L (98-107) mmol/L BUN 20 H (7-17) mg/dL Creatinine 1.19 H (0.52-1.04) mg/dL Glucose 199 H (74-99) mg/dL POC Glucose (mg/dL) 169 H (75-99) mg/dL Assessment and Plan Plan: Assessment: #1. Acute hypoxemic respiratory failure, multifactorial, chest x-ray showed new right basilar and right middle lobe acute infiltrate, possibly related to a pneumonic infiltrate, and mild central vascular congestion, fluid in the fissure suggestive of acute congestive heart failure #2. Severe mitral regurgitation #3. Cardiomyopathy, echocardiogram showed EF of 40-45% #4. Chronic bronchial asthma, with recent switch from Qvar to Symbicort for symptoms of worsening dyspnea, attributed to poor asthma control, could have been related to underlying valvular dysfunction #5. Past history of smoking, patient quit 21 years ago, but carries 33 years of smoking of one or 2 packs per day #6. Hyponatremia, with initial improvement, and on today's labs on 11/28/2018 is down to 129, after diuresis #7. Hyperkalemia, #8. Hypertension, hyperlipidemia Plan: Today's chest x-ray has been reviewed, and shows improvement in the appearance of the right perihilar infiltrate, we'll cut back the diuretics to once daily, there has been up trend in the patient's renal profile, will continue with IV Solu-Medrol, patient's chronic bronchospastic on today's exam, she is dyspneic, and still requiring supplemental oxygen. Continue with empiric antibiotics, patient has not been able to produce sputum for culture, or chills, overall she states there has been improvement terms of her breathing. Continue to follow an d make further recommendations. I performed a history & physical examination of the patient and discussed their management with my nurse practitioner, Felicita Gomes. I reviewed the nurse practitioner's note and agree with the documented findings and plan of care. Lung sounds are positive for diminished breath sounds, with scattered rhonchi and wheezes. The findings and the impression was discussed with the patient. I attest to the documentation by the nurse practitioner. Time with Patient: Less than 30
[2018-11-28] MEDS: TRIAMCINOLONE 0.1% CREAM 80 GM TUBE TOPICAL SCH ×2 (10:54→21:11)
[2018-11-28 11:16] LABS: Glucose,Whole Blood 187 mg/dL (75-99)
[2018-11-28] MEDS: MULTIVITAMINS, THERA 1 EACH TAB PO SCH (11:45)
[2018-11-28] MEDS ORDERED: LACTULOSE 20 GM/30 ML CUP PO ONE (15:00)
[2018-11-28 16:35] LABS: Glucose,Whole Blood 146 mg/dL (75-99)
[2018-11-28 19:55] LABS: Glucose,Whole Blood 147 mg/dL (75-99)
[2018-11-28] MEDS: ATORVASTATIN 10 MG TAB PO SCH (21:10)
--- NOTE | 2018-11-28 23:14 | PN ---
PROGRESS NOTE DATE OF SERVICE: 11/28/2018. PRESENTING COMPLAINT: Short of breath. INTERVAL HISTORY: Patient admitted with COPD exacerbation, pneumonia and CHF exacerbation. Breathing slightly better. Less cough. Did tolerate some diet. REVIEW OF SYSTEMS: Done for constitutional, cardiovascular, GI, pulmonary; relevant findings as above. CURRENT MEDICATIONS: Reviewed that include DuoNeb, azithromycin, IV ceftriaxone, IV Lasix, IV Solu-Medrol. PHYSICAL EXAMINATION: Temperature 99, pulse 99, respirations 19, blood pressure 130/70, pulse 98% on 4 L. GENERAL APPEARANCE: Sitting up, awake. EYES: Pupils equal. Conjunctivae normal. JVD unable to assess. Mass not palpable. RESPIRATORY: Effort increased. LUNGS: Decreased breath sounds. Prolonged expiration. Some wheezing. CARDIOVASCULAR: First and second sounds, no edema. ABDOMEN: Soft, nontender. Liver and spleen not palpable. PSYCHIATRY: Alert, oriented x3. Mood and affect normal. INVESTIGATIONS: Sodium 129, BUN 20, creatinine 1.19. Accu-Cheks are noted. ASSESSMENT: 1. Acute asthma/chronic obstructive pulmonary disease overlap syndrome exacerbation in an ex-smoker smoker. 2. Right lobe pneumonia suspect gram-negative organism. 3. Acute congestive heart failure exacerbation from systolic dysfunction, ejection fraction 40 to 45 percent. 4. Severe mitral regurgitation, nonrheumatic. 5. Diabetes mellitus type 2 on oral hypoglycemic. 6. Gastroesophageal reflux disease. 7. Hyperlipidemia. 8. Essential hypertension. 9. Obesity; BMI 31.2. PLAN: The patient will be continued on the current medications including bronchodilators, steroids, antibiotics and Lasix. Care was discussed with the patient and family at the bedside. Slow to respond. Will follow. MMODL / IJN: [id number] /
[2018-11-29] MEDS: IPRATROPIUM-ALBUTEROL 3 ML NEB INHALATION SCH ×7 (00:22→23:55)
[2018-11-29] MEDS ORDERED: IPRATROPIUM-ALBUTEROL 3 ML NEB ONE (04:00)
[2018-11-29] MEDS: amLODIPine 10 MG TAB PO SCH (07:17)
[2018-11-29] MEDS: PANTOPRAZOLE 40 MG TABLET PO SCH (07:17)
[2018-11-29] MEDS: metFORMIN 500 MG TAB PO SCH ×2 (07:17→17:12)
[2018-11-29] MEDS: LOSARTAN 50 MG TAB PO SCH (07:17)
[2018-11-29] MEDS: LORATADINE 10 MG TAB PO SCH (07:18)
[2018-11-29] MEDS: AZITHROMYCIN 500 MG TAB PO SCH (07:18)
[2018-11-29] MEDS: methylPREDNISolone SOD SUCCI 40 MG/ML 1 ML VIAL IV SCH ×3 (07:19→23:16)
[2018-11-29] MEDS: TRIAMCINOLONE 0.1% CREAM 80 GM TUBE TOPICAL SCH ×2 (07:22→22:06)
[2018-11-29] MEDS: ENOXAPARIN 40 MG/0.4 ML SYRINGE SQ SCH (07:22)
[2018-11-29 07:23] LABS: Glucose,Whole Blood 172 mg/dL (75-99)
[2018-11-29] MEDS: INSULIN ASPART (NovoLOG) 100 UNIT/ML VIAL SQ SCH ×8 (07:31→21:57)
[2018-11-29 08:03] LABS: Basophils % (A) 0 %; Eosinophils % (A) 1 %; HCT 44.7 % (34.0-46.0); HGB 14.5 gm/dL (11.4-16.0); Lymphocytes # (A) 0.3 k/uL (1.0-4.8); Lymphocytes % (A) 4 %; MCH 28.9 pg (25.0-35.0); MCHC 32.4 g/dL (31.0-37.0); MCV 89.2 fL (80.0-100.0); Mean Platelet Volume 6.8; Monocytes # (A) 0.3 k/uL (0-1.0); Monocytes % (A) 4 %; Neutrophils # (A) 6.2 k/uL (1.3-7.7); Neutrophils % (A) 90 %; Platelet Count 314 k/uL (150-450); RBC 5.02 m/uL (3.80-5.40); RDW 13.8 % (11.5-15.5); WBC 6.9 k/uL (3.8-10.6)
[2018-11-29 08:28] LABS: Calcium 9.6 mg/dL (8.4-10.2); Potassium 5.5 mmol/L (3.5-5.1)
--- NOTE | 2018-11-29 08:49 | XR ---
EXAMINATION TYPE: XR chest 2V DATE OF EXAM: 11/29/2018 COMPARISON: 11/28/2018 HISTORY: 78 year-old female shortness of breath TECHNIQUE: PA and lateral views FINDINGS: Heart mildly enlarged. Aorta within normal limits. Focal midlung opacities persist. Some interstitial changes previously seen in the left upper lobe show improvement. No pleural effusion. IMPRESSION: Persistent patchy midlung areas of atelectasis or infiltrates. Some interstitial changes seen previou sly show improvement.
[2018-11-29] MEDS ORDERED: FUROSEMIDE 10 MG/ML 4 ML VIAL IV SCH (09:00)
[2018-11-29] MEDS: BUDESONIDE 1 MG/2 ML NEBU INHALATION SCH ×2 (09:01→21:39)
--- NOTE | 2018-11-29 10:26 | P.PN ---
Subjective Progress Note Date: 11/29/18 Principal diagnosis: Dyspnea, COPD, asthma exacerbation, hypoxemia, CHF with systolic dysfunction, pneumonia This is a 78-year-old white female patient of Dr. Brittani Angel with past medical history of chronic bronchial asthma, hypertension, hyperlipidemia, past history of nicotine dependence, currently in remission, she quit smoking 21 years ago, but did smoke for 33 years 1-2 packs per day. Patient presents to the hospital on 11/26/2018 with complaints of worsening shortness of breath, chest tightness. She denied any fever or chills, at times she was able to bring up some thick phlegm. She states her PCP had switched her from Qvar to Symbicort in mid September, because patient was complaining of increased shortness of breath. She had been on Qvar for about a year, and her dyspnea was not well- controlled on it. When she was switched to Symbicort patient noticed immediate worsening in her dyspnea, increased wheezing, and chest tightness. Patient stopped it, and did try again resuming the Symbicort last week. However she experienced same symptoms of increased wheezing, chest tightness, and shortness of breath with Symbicort. Does not normally wear oxygen, but her pulse ox was noted to be at 70% at Dr. Angel's office, hence patient was sent to the em ergency department for evaluation. Chest x-ray was completed and showed a new right basilar and probable right middle lobe infiltrate, cardiomegaly with mild central vessel congestion. EKG showed normal sinus rhythm without acute ischemic changes. Labs showed white blood cell count of 8.1, hemoglobin of 14.3, serum sodium was 129, potassium is 5.6, chloride was 92, CO2 is 26, BUN was 9, creatinine was 0.84. Troponin was negative 1, proBNP was elevated at 3020, influenza screen was negative. Patient remains on 4 L of oxygen and her pulse ox is around 92%, she is still short of breath and still has chest tightness, denies any fever or chills. She was started on antibiotic coverage in the form of Zithromax, nebulized bronchodilators and IV steroids. On 11/28/2018 patient seen in follow-up on medical surgical floor. She is awake and alert, in no acute distress, lung sounds reveal more bronchospastic rounds on today's exam compared to yesterday, no rales, no rhonchi. He is on 4 L of oxygen, with a pulse ox of 90-92%, still has exertional dyspnea with desaturation, low-grade fever of 99.0F this morning, patient has been diuresed overnight, and today's chest x-ray has been reviewed with Dr. Rebollar, it shows improvement in the appearance of right lower lobe perihilar infiltrate, there is persistent mild atelectasis at the left upper lung field, cardiomegaly. Today's lab work has been reviewed, and white blood cell count is 8.0, hemoglobin is 13.5, sodium is 129, potassium is 5.0, chloride is 87, B1 is 20 and creatinine is 1.19. Influenza screen was negative. No complaints of chest pain, not bringing up any sputum. On 11/29/2018 patient seen in follow-up on medical surgical floor. She is awake and alert, in no acute distress, still experiencing significant exertional dyspnea, but overall she states her breathing is improving, on today's exam her lung sounds are essentially clear. No wheezing, no rhonchi or rales. Room air pulse ox is 90%, OXYGEN 4 L of oxygen was 95%, but in view of exertional dyspnea patient still wears oxygen intermittently, we'll cut back the FiO2 down to 2 L. Her vital signs have been stable, no fever or chills, she is on a combination of Zithromax and Rocephin. She has had no chest pain, she is on daily dose of IV Lasix of 40 mg daily, her weight is down by 3 kg since admission. Today's labs have been reviewed, CBC is essentially unremarkable, serum sodium is 125, potassium is 5.5, chloride is 85, BUN is 28, and creatinine is 1.06. Cardiology consultation is pending. Today's chest x-ray has been reviewed, and shows im provement of the interstitial changes, persistent patchy midlung area of atelectasis or infiltrate. Objective - Vital Signs Vital signs: Vital Signs Temp 98.1 F 11/29/18 07:00 Pulse 100 11/29/18 09:01 Resp 20 11/29/18 07:25 BP 132/69 11/29/18 07:00 Pulse Ox 90 L 11/29/18 07:00 Intake & Output 11/28/18 11/29/18 11/29/18 18:59 06:59 18:59 Weight 69.5 kg Other: Voiding Method Bedside Commode Bedside Commode # Voids 1 - Exam GENERAL EXAM: Alert, pleasant, 78-year-old white female on 4 L of oxygen with pulse ox of 94% comfortable in no apparent distress. HEAD: Normocephalic/atraumatic. EYES: Normal reaction of pupils, equal size. Conjunctiva pink, sclera white. NOSE: Clear with pink turbinates. THROAT: No erythema or exudates. NECK: No masses, no JVD, no thyroid enlargement, no adenopathy. CHEST: No chest wall deformity. Symmetrical expansion. LUNGS: Equal air entry with clear breath sounds, no rhonchi, no wheezing CVS: Regular rate and rhythm, normal S1 and S2, no gallops, no murmurs, no rubs ABDOMEN: Soft, nontender. No hepatosplenomegaly, normal bowel sounds, no guarding or rigidity. EXTREMITIES: No clubbing, no edema, no cyanosis, 2+ pulses and upper and lower extremities. MUSCULOSKELETAL: Muscle strength and tone normal. SPINE: No scoliosis or deformity SKIN: No rashes CENTRAL NERVOUS SYSTEM: Alert and oriented -3. No focal deficits, tone is normal in all 4 extremities. PSYCHIATRIC: Alert and oriented -3. Appropriate affect. Intact judgment and insight. - Labs CBC & Chem 7: 11/29/18 06:59 11/29/18 06:59 Labs: Abnormal Lab Results - Last 24 Hours (Table) 11/28/18 11/28/18 11/28/18 Range/Units 11:14 16:33 19:52 Lymphocytes # (1.0-4.8) k/uL Sodium (137-145) mmol/L Potassium (3.5-5.1) mmol/L Chloride (98-107) mmol/L BUN (7-17) mg/dL Creatinine (0.52-1.04) mg/dL Glucose (74-99) mg/dL POC Glucose (mg/dL) 187 H 146 H 147 H (75-99) mg/dL 11/29/18 11/29/18 11/29/18 Range/Units 06:59 06:59 07:09 Lymphocytes # 0.3 L (1.0-4.8) k/uL Sodium 125 L (137-145) mmol/L Potassium 5.5 H (3.5-5.1) mmol/L Chloride 85 L (98-107) mmol/L BUN 28 H (7-17) mg/dL Creatinine 1.06 H (0.52-1.04) mg/dL Glucose 192 H (74-99) mg/dL POC Glucose (mg/dL) 172 H (75-99) mg/dL Assessment and Plan Plan: Assessment: #1. Acute hypoxemic respiratory failure, multifactorial, chest x-ray showed new right basilar and right middle lobe acute infiltrate, possibly related to a pneumonic infiltrate, and mild central vascular congestion, fluid in the fissure suggestive of acute congestive heart failure #2. Severe mitral regurgitation #3. Cardiomyopathy, echocardiogram showed EF of 40-45% #4. Chronic bronchial asthma, with recent switch from Qvar to Symbicort for symptoms of worsening dyspnea, attributed to poor asthma control, could have been related to underlying valvular dysfunction #5. Past history of smoking, patient quit 21 years ago, but carries 33 years of smoking of one or 2 packs per day #6. Hyponatremia, with initial improvement, and on today's labs on 11/28/2018 is down to 129, after diuresis #7. Hyperkalemia, #8. Hypertension, hyperlipidemia Plan: Today's chest x-ray has been reviewed, and shows continued improvement in the appearance of interstitial changes, and persistent area of atelectasis/infiltrates in the right lung. Patient is breathing easier, still has significant exertional dyspnea, denies any chest pain, we'll continue with diuretics, cardiology consultation is pending. Continue with current antibiotic coverage, no fever or chills. I performed a history & physical examination of the patient and discussed their management with my nurse practitioner, Felicita Gomes. I reviewed the nurse practitioner's note and agree with the documented findings and plan of care. Lung sounds are positive for clear breath sounds. The findings and the impression was discussed with the patient. I attest to the documentation by the nurse practitioner. Time with Patient: Less than 30
[2018-11-29 11:35] LABS: Glucose,Whole Blood 227 mg/dL (75-99)
[2018-11-29] MEDS: MULTIVITAMINS, THERA 1 EACH TAB PO SCH (11:52)
[2018-11-29 17:18] LABS: Glucose,Whole Blood 127 mg/dL (75-99)
[2018-11-29] MEDS ORDERED: SODIUM POLYSTYRENE SULFONATE 15 GM/60 ML BOTTLE PO ONE (20:00)
[2018-11-29 20:04] LABS: Glucose,Whole Blood 226 mg/dL (75-99)
--- NOTE | 2018-11-29 20:28 | P.CRDCN ---
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 The patient was in her usual state of health until a few days ago. She started experiencing exertional dyspnea without any orthopnea and without any paroxysmal nocturnal dyspnea. She denies having any lower extremities edema within the last few days but she states sometimes once she travel in the car she developed lower extremities edema. No change in the weight. No fever or chills. No f eeling of heart racing or fluttering. No dizziness or lightheaded sprayed and no syncope. The EKG on presentation to the hospital showed sinus tachycardia. The chest x- ray showed a new right basilar infiltrate. Also it did show cardiomegaly. The cardiac enzymes came in to be unremarkable. The BMP was about 3000. The patient was admitted to the hospital and she was diagnosed was congestive h eart failure exacerbation and she was started on Lasix IV and early her today she was to switch to Lasix by mouth. The patient is not aware of any prior history of coronary artery disease and never seen any subway conductor in the past. She underwent an echocardiogram which revealed impaired LV function was ejection fraction around 40% with evidence of severe mitral regurgitation. We get involved in the care of the patient recalls of that. Past Medical History Past Medical History: Asthma, Diabetes Mellitus, Eye Disorder, GERD/Reflux, Hyperlipidemia, Hypertension History of Any Multi-Drug Resistant Organisms: None Reported Past Surgical History: Breast Surgery Additional Past Surgical History / Comment(s): EXC LT BREAST LUMP. COLONOSCOPY, EGD. Past Anesthesia/Blood Transfusion Reactions: No Reported Reaction Past Psychological History: No Psychological Hx Reported Smoking Status: Former smoker Past Alcohol Use History: None Reported Additional Past Alcohol Use History / Comment(s): (SMOKED [id number] EST) Past Drug Use History: None Reported - Past Family History Mother Sister(s) Family Medical History: Cancer Medications and Allergies Home Medications Medication Instructions Recorded Confirmed Type Albuterol Inhaler [Ventolin 1 - 2 puff INHALATION Q6HR PRN 09/08/15 11/26/18 History Inhaler] Cholecalciferol [Vitamin D3] 2,000 unit PO DAILY 09/08/15 11/26/18 History Loratadine [Claritin] 10 mg PO DAILY 09/08/15 11/26/18 History Multivitamins, Thera [Theragran] 1 each PO DAILY@1200 09/08/15 11/26/18 History Omeprazole [PriLOSEC] 20 mg PO AC-BRKFST 09/08/15 11/26/18 History metFORMIN HCL [Glucophage] 500 mg PO BID 09/08/15 11/26/18 History Albuterol Nebulized (Conc) 2.5 mg INHALATION RT-Q6H 11/26/18 11/26/18 History [Ventolin Nebulized (Conc)] Budesonide/Formoterol Fumarate 2 puff INHALATION RT-BID 11/26/18 11/26/18 History [Symbicort 160-4.5 Mcg Inhaler] Lovastatin [Mevacor] 60 mg PO HS 11/26/18 11/26/18 History Olmesartan Medoxomil 40 g PO DAILY 11/26/18 11/26/18 History Triamcinolone 0.1% Cream [Kenalog 1 applic TOPICAL BID 11/26/18 11/26/18 History 0.1% Cream] Vitamin E 1,000 unit PO DAILY 11/26/18 11/26/18 History amLODIPine [Norvasc] 10 mg PO DAILY 11/26/18 11/26/18 History Allergies Allergy/AdvReac Type Severity Reaction Status Date / Time aspirin Allergy Rash/Hives Verified 11/26/18 16:22 latex Allergy Rash/Hives Verified 11/26/18 16:22 Penicillins Allergy Unknown Verified 11/26/18 16:22 Childhood venom-honey bee Allergy Dyspnea, Verified 11/26/18 16:22 [bee venom (honey bee)] HIVES Physical Exam Vitals: Vital Signs Temp Pulse Pulse Resp BP Pulse Ox 11/29/18 19:00 98.5 F 94 16 130/61 92 L 11/29/18 17:18 100 11/29/18 17:01 96 11/29/18 15:00 98.4 F 68 16 110/57 90 L 11/29/18 12:32 96 11/29/18 12:19 100 11/29/18 09:21 100 11/29/18 09:01 100 11/29/18 07:25 20 11/29/18 07:00 98.1 F 102 H 20 132/69 90 L 11/29/18 00:33 98.3 F 98 18 136/72 95 11/29/18 00:32 95 11/29/18 00:23 95 11/28/18 21:31 98 11/28/18 21:16 95 Intake and Output 11/29/18 11/29/18 11/29/18 06:59 14:59 22:59 Intake Total 200 Balance 200 Intake: Oral 200 Other: Voiding Method Bedside Commode # Voids 1 Weight 69.5 kg - Constitutional General appearance: no acute distress - Respiratory Respiratory: - Cardiovascular Rhythm: regular Heart sounds: Abnormal Heart Sounds: systolic murmur Results 11/29/18 06:59 11/29/18 06:59 CBC 11/29/18 Range/Units 06:59 WBC 6.9 (3.8-10.6) k/uL RBC 5.02 (3.80-5.40) m/uL Hgb 14.5 (11.4-16.0) gm/dL Hct 44.7 (34.0-46.0) % Plt Count 314 (150-450) k/uL Comprehensive Metabolic Panel 11/29/18 Range/Units 06:59 Sodium 125 L (137-145) mmol/L Potassium 5.5 H (3.5-5.1) mmol/L Chloride 85 L (98-107) mmol/L Carbon Dioxide 30 (22-30) mmol/L BUN 28 H (7-17) mg/dL Creatinine 1.06 H (0.52-1.04) mg/dL Glucose 192 H (74-99) mg/dL Calcium 9.6 (8.4-10.2) mg/dL Current Medications Generic Name Dose Route Start Last Admin Trade Name Freq PRN Reason Stop Dose Admin Albuterol/Ipratropium 3 ml 11/27/18 00:00 11/29/18 17:01 Duoneb 0.5 Mg-3 Mg/3 Ml Soln INHALATION 3 ml RT-Q4H [facility] Administration Amlodipine Besylate 5 mg 11/30/18 09:00 Norvasc PO DAILY [facility] Atorvastatin Calcium 10 mg 11/26/18 21:00 11/28/18 21:10 Lipitor PO 10 mg HS [facility] Administration Azithromycin 500 mg 11/27/18 09:00 11/29/18 07:18 Zithromax PO 500 mg DAILY [facility] Administration Budesonide 1 mg 11/27/18 08:00 11/29/18 09:01 Pulmicort INHALATION 1 mg RT-BID [facility] Administration Enoxaparin Sodium 40 mg 11/27/18 09:00 11/29/18 07:22 Lovenox SQ 40 mg DAILY [facility] Administration Furosemide 40 mg 11/30/18 09:00 Lasix PO DAILY [facility] Ceftriaxone Sodium 1 gm/ 50 mls @ 100 mls/hr 11/27/18 10:30 11/29/18 07:25 Sodium Chloride IVPB 100 mls/hr Q24HR [facility] Administration Insulin Aspart 0 unit 11/26/18 21:00 11/29/18 17:16 Novolog SQ Not Given ACHS [facility] Protocol Insulin Aspart 0 unit 11/27/18 07:30 11/29/18 17:16 Novolog SQ Not Given ACHS [facility] Protocol Loratadine 10 mg 11/27/18 09:00 11/29/18 07:18 Claritin PO 10 mg DAILY [facility] Administration Losartan Potassium 150 mg 11/27/18 09:00 11/29/18 07:17 Cozaar PO 150 mg DAILY [facility] Administration Metformin HCl 500 mg 11/26/18 19:30 11/29/18 17:12 Glucophage PO 500 mg BID-W/MEALS [facility] Administration Methylprednisolone Sodium Succinate 40 mg 11/27/18 00:00 11/29/18 17:12 Solu-Medrol IV 40 mg Q8HR [facility] Administration Metoprolol Tartrate 12.5 mg 11/29/18 21:00 Lopressor PO BID [facility] Multivitamins 1 each 11/27/18 12:00 11/29/18 11:52 Theragran PO 1 each DAILY@1200 [facility] Administration Pantoprazole Sodium 40 mg 11/27/18 07:30 11/29/18 07:17 Protonix PO 40 mg AC-BRKFST [facility] Administration Triamcinolone Acetonide 1 applic 11/26/18 21:00 11/29/18 07:22 Kenalog TOPICAL 1 applic BID [facility] Administration Intake and Output 11/29/18 11/29/18 11/29/18 06:59 14:59 22:59 Intake Total 200 Balance 200 Intake: Oral 200 Other: Voiding Method Bedside Commode # Voids 1 Weight 69.5 kg Patient Weight 11/30/18 06:59 Weight 69.5 kg 11/29/18 06:59 11/29/18 06:59 Assessment and Plan Assessment: Assessment #1 acute exacerbation of congestive heart failure secondary to systolic dysfunction #2 valvular heart disease with severe mitral regurgitation #3 cardiomyopathy with an EF between 40-45%. The cardiomyopathy and known if is ischemic or nonischemic #4 diabetes #5 hypertension #6 dyslipidemia Plan #1 the patient seems to be euvolemic at this point. She is on Lasix by mouth which was started earlier today. #2 she is tachycardic. I am going to start her on small dose of metoprolol and lowered the dose of Norvasc in view of the margin a low blood pressure #3 the patient definitely need to have transesophageal echocardiogram to assess the mitral valve apparatus #4 she definitely to have a heart catheterization to assess for severe underlying coronary artery disease #5 continue monitor the kidney function and electrolytes #6 follow-up with the patient. Thank you for allowing us participate in her care and we will continue following up with the patient
[2018-11-29] MEDS ORDERED: METOPROLOL TARTRATE 12.5 MG TAB PO SCH (21:00)
[2018-11-29] MEDS: ATORVASTATIN 10 MG TAB PO SCH (21:20)
--- NOTE | 2018-11-29 22:54 | PN ---
PROGRESS NOTE DATE OF SERVICE: 11/29/2018 PRESENTING COMPLAINT: Short of breath. INTERVAL HISTORY: Patient was admitted with COPD exacerbation, pneumonia, CHF exacerbation. Switched to p.o. Lasix this morning. Less of a cough. Feels a bit tired. Has been out of bed. Eating a little bit better. REVIEW OF SYSTEMS: Done for constitutional, cardiovascular, GI, pulmonary; relevant findings as above. CURRENT MEDICATIONS: Reviewed. They include DuoNeb, IV ceftriaxone, p.o. Lasix, IV Solu-Medrol. PHYSICAL EXAMINATION: Temperature 98.4, pulse 58, respiration 16, blood pressure 110/57, pulse ox 98% on 2 L. GENERAL APPEARANCE: Sitting up, tired-appearing. EYES: Pupils equal. Conjunctivae normal. NECK: JVD not raised. Mass not palpable. RESPIRATORY: Effort increased. LUNGS: Diminished breath sounds. Decreased wheezing. CARDIOVASCULAR: First and second sounds normal. No edema. ABDOMEN: Soft, non-tender. Liver and spleen not palpable. PSYCHIATRY: Alert and oriented x3. Mood and affect normal. INVESTIGATIONS: Chest x-ray, personally reviewed by me, shows infiltrates. White count 6.9, hemoglobin 14.5, potassium 5.5, BUN 28, creatinine 1.06. ASSESSMENT: 1. 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 2. Right lobe pneumonia. Suspect gram-negative organism. 3. Acute congestive heart failure exacerbation from systolic dysfunction, ejection fraction 40% to 45%. 4. Severe mitral regurgitation, non-rheumatic. 5. Diabetes mellitus, type 2, on oral hypoglycemic. 6. Gastroesophageal reflux disease. 7. Hyperlipidemia. 8. Essential hypertension. 9. Obesity; body mass index 31.2. 10.Hyponatremia, likely from diuresis. 11.Hyperkalemia; could be both from patient being on Lovenox and Cozaar. PLAN: Will hold off patient's morning dose of Cozaar. Repeat the potassium. Will check serum osmolality and a BMP in the morning. Encourage patient to be out of bed. MMODL / IJN: [id number] /
[2018-11-30] MEDS: IPRATROPIUM-ALBUTEROL 3 ML NEB INHALATION SCH ×6 (03:47→23:13)
[2018-11-30 07:30] LABS: Glucose,Whole Blood 160 mg/dL (75-99)
[2018-11-30 07:33] LABS: Calcium 9.2 mg/dL (8.4-10.2); Potassium 5.3 mmol/L (3.5-5.1)
[2018-11-30] MEDS: BUDESONIDE 1 MG/2 ML NEBU INHALATION SCH ×2 (07:59→19:25)
[2018-11-30] MEDS: INSULIN ASPART (NovoLOG) 100 UNIT/ML VIAL SQ SCH ×8 (09:13→23:31)
[2018-11-30] MEDS: ENOXAPARIN 40 MG/0.4 ML SYRINGE SQ SCH (09:14)
[2018-11-30] MEDS: PANTOPRAZOLE 40 MG TABLET PO SCH (09:14)
[2018-11-30] MEDS: methylPREDNISolone SOD SUCCI 40 MG/ML 1 ML VIAL IV SCH ×2 (09:14→16:29)
[2018-11-30] MEDS: amLODIPine 5 MG TAB PO SCH (09:15)
[2018-11-30] MEDS: METOPROLOL TARTRATE 25 MG TAB PO SCH ×2 (09:15→22:16)
[2018-11-30] MEDS: LORATADINE 10 MG TAB PO SCH (09:15)
[2018-11-30] MEDS: FUROSEMIDE 40 MG TAB PO SCH (09:16)
[2018-11-30] MEDS: metFORMIN 500 MG TAB PO SCH ×2 (09:16→17:43)
[2018-11-30] MEDS: AZITHROMYCIN 500 MG TAB PO SCH (09:16)
[2018-11-30] MEDS: TRIAMCINOLONE 0.1% CREAM 80 GM TUBE TOPICAL SCH ×2 (09:17→22:18)
--- NOTE | 2018-11-30 09:43 | P.PN ---
Subjective This is a pleasant 78-year-old female past medical history significant for hypertension, dyslipidemia, diabetes mellitus, asthma former nicotine dependence. She presented to the hospital with symptoms of exertional shortness of breath worsening over the previous 2 weeks. She was found to have cardiomyopathy with an ejection fraction of 40-45% with severe mitral regurgitation. She denies prior history of coronary artery disease. Currently maintained on amlodipine 5 mg daily, atorvastatin 10 mg daily, Lasix 40 mg by mouth daily and Lopressor 12.5 mg twice a day. Laboratory data reviewed, sodium 123, potassium 5.3, creatinine 1.05. Weight is down 3 kg from admission. Inaccurate output documented. Blood pressure 144/78 heart rate in the 90's. She states she continues to feel short of breath at rest as well as with minimal exertion such as walking to the bathroom. She denies chest pain, dizziness, PND, orthopnea or palpitations. GENERAL: Well-appearing, well-nourished and in mild respiratory distress at rest. NECK: Supple without JVD or thyromegaly. LUNGS: Breath sounds clear to auscultation bilaterally. Respiration equal and unlabored. No wheezes, rales or rhonchi. Diminished bilaterally. HEART: Regular rate and rhythm with faint systolic ejection murmur, no rubs or gallops. S1 and S2 heard. EXTREMITIES: Normal range of motion, no edema. No clubbing or cyanosis. Peripheral pulses intact. ASSESSMENT Acute exacerbation of congestive heart failure secondary to systolic dysfunction and valvular heart disease Severe mitral regurgitation Cardiomyopathy, ejection fraction 40-45%. Unknown if ischemic or nonischemic. Pneumonia Hyponatremia Hyperkalemia Acute kidney injury Hypertension Dyslipidemia Diabetes mellitus Asthma Former nicotine dependence PLAN Increase lopressor to 25 mg PO BID. Repeat chest xray this morning Repeat electrolytes in the morning. MIKAYLA/ARB should be started if potassium and creatinine improve. Consider nephrology opinion for ongoing electrolyte abnormalities. Appointment has been made in the office to see Dr. Chavarria to set up outpatient MELO and heart catheterization. Nurse Practitioner note has been reviewed, I agree with a documented findings and plan of care. Patient was seen and examined. Objective - Vital Signs Vital signs: Vital Signs Temp 97.7 F 11/30/18 07:10 Pulse 96 11/30/18 07:57 Resp 16 11/30/18 07:10 BP 144/78 11/30/18 07:10 Pulse Ox 95 11/30/18 07:57 Intake & Output 11/29/18 11/30/18 11/30/18 18:59 06:59 18:59 Intake Total 200 540 Balance 200 540 Weight 69.5 kg Intake: Oral 200 540 Other: Voiding Method Bedside Commode # Voids 2 - Labs CBC & Chem 7: 11/29/18 06:59 11/30/18 06:26 Labs: Abnormal Lab Results - Last 24 Hours (Table) 11/29/18 11/29/18 11/29/18 Range/Units 06:59 06:59 11:31 Lymphocytes # 0.3 L (1.0-4.8) k/uL Sodium 125 L (137-145) mmol/L Potassium 5.5 H (3.5-5.1) mmol/L Chloride 85 L (98-107) mmol/L Carbon Dioxide (22-30) mmol/L BUN 28 H (7-17) mg/dL Creatinine 1.06 H (0.52-1.04) mg/dL Glucose 192 H (74-99) mg/dL POC Glucose (mg/dL) 227 H (75-99) mg/dL Osmolality (280-301) mosm/kg 11/29/18 11/29/18 11/30/18 Range/Units 17:10 20:00 06:26 Lymphocytes # (1.0-4.8) k/uL Sodium 123 L (137-145) mmol/L Potassium 5.3 H (3.5-5.1) mmol/L Chloride 84 L (98-107) mmol/L Carbon Dioxide 31 H (22-30) mmol/L BUN 35 H (7-17) mg/dL Creatinine 1.05 H (0.52-1.04) mg/dL Glucose 172 H (74-99) mg/dL POC Glucose (mg/dL) 127 H 226 H (75-99) mg/dL Osmolality 271 L (280-301) mosm/kg 11/30/18 Range/Units 07:18 Lymphocytes # (1.0-4.8) k/uL Sodium (137-145) mmol/L Potassium (3.5-5.1) mmol/L Chloride (98-107) mmol/L Carbon Dioxide (22-30) mmol/L BUN (7-17) mg/dL Creatinine (0.52-1.04) mg/dL Glucose (74-99) mg/dL POC Glucose (mg/dL) 160 H (75-99) mg/dL Osmolality (280-301) mosm/kg
--- NOTE | 2018-11-30 09:47 | XR ---
EXAMINATION TYPE: XR chest 1V portable DATE OF EXAM: 11/30/2018 COMPARISON: 12/09/2018 HISTORY: Shortness of breath TECHNIQUE: Single frontal view of the chest is obtained. FINDINGS: Improving left midlung and right infrahilar airspace disease. Remainder the lungs are zahida r. Cardiomediastinal silhouette is again mildly enlarged. Mild multilevel degenerative changes of the thoracic spine are noted. No pleural effusion or pneumothorax. IMPRESSION: Improving multifocal airspace disease in comparison the prior of 11/29/2018.
[2018-11-30 10:23] LABS: Cholesterol 151 mg/dL (<200); HDL Cholesterol 61 mg/dL (40-60); LDL Cholesterol,Calculated 60 mg/dL (0-99); Triglycerides 149 mg/dL (<150)
--- NOTE | 2018-11-30 11:22 | P.PN ---
Subjective Progress Note Date: 11/30/18 Principal diagnosis: Dyspnea, COPD, asthma exacerbation, hypoxemia, CHF with systolic dysfunction, pneumonia This is a 78-year-old white female patient of Dr. Brittani Angel with past medical history of chronic bronchial asthma, hypertension, hyperlipidemia, past history of nicotine dependence, currently in remission, she quit smoking 21 years ago, but did smoke for 33 years 1-2 packs per day. Patient presents to the hospital on 11/26/2018 with complaints of worsening shortness of breath, chest tightness. She denied any fever or chills, at times she was able to bring up some thick phlegm. She states her PCP had switched her from Qvar to Symbicort in mid September, because patient was complaining of increased shortness of breath. She had been on Qvar for about a year, and her dyspnea was not well- controlled on it. When she was switched to Symbicort patient noticed immediate worsening in her dyspnea, increased wheezing, and chest tightness. Patient stopped it, and did try again resuming the Symbicort last week. However she experienced same symptoms of increased wheezing, chest tightness, and shortness of breath with Symbicort. Does not normally wear oxygen, but her pulse ox was noted to be at 70% at Dr. Angel's office, hence patient was sent to the em ergency department for evaluation. Chest x-ray was completed and showed a new right basilar and probable right middle lobe infiltrate, cardiomegaly with mild central vessel congestion. EKG showed normal sinus rhythm without acute ischemic changes. Labs showed white blood cell count of 8.1, hemoglobin of 14.3, serum sodium was 129, potassium is 5.6, chloride was 92, CO2 is 26, BUN was 9, creatinine was 0.84. Troponin was negative 1, proBNP was elevated at 3020, influenza screen was negative. Patient remains on 4 L of oxygen and her pulse ox is around 92%, she is still short of breath and still has chest tightness, denies any fever or chills. She was started on antibiotic coverage in the form of Zithromax, nebulized bronchodilators and IV steroids. On 11/28/2018 patient seen in follow-up on medical surgical floor. She is awake and alert, in no acute distress, lung sounds reveal more bronchospastic rounds on today's exam compared to yesterday, no rales, no rhonchi. He is on 4 L of oxygen, with a pulse ox of 90-92%, still has exertional dyspnea with desaturation, low-grade fever of 99.0F this morning, patient has been diuresed overnight, and today's chest x-ray has been reviewed with Dr. Rebollar, it shows improvement in the appearance of right lower lobe perihilar infiltrate, there is persistent mild atelectasis at the left upper lung field, cardiomegaly. Today's lab work has been reviewed, and white blood cell count is 8.0, hemoglobin is 13.5, sodium is 129, potassium is 5.0, chloride is 87, B1 is 20 and creatinine is 1.19. Influenza screen was negative. No complaints of chest pain, not bringing up any sputum. On 11/29/2018 patient seen in follow-up on medical surgical floor. She is awake and alert, in no acute distress, still experiencing significant exertional dyspnea, but overall she states her breathing is improving, on today's exam her lung sounds are essentially clear. No wheezing, no rhonchi or rales. Room air pulse ox is 90%, OXYGEN 4 L of oxygen was 95%, but in view of exertional dyspnea patient still wears oxygen intermittently, we'll cut back the FiO2 down to 2 L. Her vital signs have been stable, no fever or chills, she is on a combination of Zithromax and Rocephin. She has had no chest pain, she is on daily dose of IV Lasix of 40 mg daily, her weight is down by 3 kg since admission. Today's labs have been reviewed, CBC is essentially unremarkable, serum sodium is 125, potassium is 5.5, chloride is 85, BUN is 28, and creatinine is 1.06. Cardiology consultation is pending. Today's chest x-ray has been reviewed, and shows im provement of the interstitial changes, persistent patchy midlung area of atelectasis or infiltrate. On 11/30/2018 patient seen in follow-up on medical surgical floor. She is resting in bed, still haven't quite a bit of exertional dyspnea, on today's exam there are some scattered wheezes, but overall less bronchospastic, no rhonchi or rales. Patient continues on oral Lasix, her volume status is improving, today's chest x-ray shows improving multifocal airspace disease in comparison to yesterday's chest x-ray. Pulse ox is 95% on 2 L per nasal cannula, no complaints of chest pain, patient has been evaluated by cardiology, and will have further workup in regards to severe mitral regurgitation likely on an outpatient basis, antibiotic coverage in the form of Rocephin and Zithromax, and was not able to produce a sputum for culture, no fever or chills. Today's labs have been reviewed, and shows downtrending sodium, 123, potassium is 5.3, chloride is 84, CO2 is 31, B1 is 35 and creatinine is 1.05. Patient has been transitioned over to oral treatment, will start fluid restriction as well. Objective - Vital Signs Vital signs: Vital Signs Temp 97.7 F 11/30/18 07:10 Pulse 95 11/30/18 08:15 Resp 16 11/30/18 07:10 BP 144/78 11/30/18 07:10 Pulse Ox 95 11/30/18 07:57 Intake & Output 11/29/18 11/30/18 11/30/18 18:59 06:59 18:59 Intake Total 200 540 118 Balance 200 540 118 Weight 69.5 kg Intake: Oral 200 540 118 Other: Voiding Method Bedside Commode # Voids 2 - Exam GENERAL EXAM: Alert, pleasant, 78-year-old white female on 2 L of oxygen with pulse ox of 94% comfortable in no apparent distress. HEAD: Normocephalic/atraumatic. EYES: Normal reaction of pupils, equal size. Conjunctiva pink, sclera white. NOSE: Clear with pink turbinates. THROAT: No erythema or exudates. NECK: No masses, no JVD, no thyroid enlargement, no adenopathy. CHEST: No chest wall deformity. Symmetrical expansion. LUNGS: Equal air entry with diffuse wheezes CVS: Regular rate and rhythm, normal S1 and S2, no gallops, no murmurs, no rubs ABDOMEN: Soft, nontender. No hepatosplenomegaly, normal bowel sounds, no guarding or rigidity. EXTREMITIES: No clubbing, no edema, no cyanosis, 2+ pulses and upper and lower extremities. MUSCULOSKELETAL: Muscle strength and tone normal. SPINE: No scoliosis or deformity SKIN: No rashes CENTRAL NERVOUS SYSTEM: Alert and oriented -3. No focal deficits, tone is normal in all 4 extremities. PSYCHIATRIC: Alert and oriented -3. Appropriate affect. Intact judgment and insight. - Labs CBC & Chem 7: 11/29/18 06:59 11/30/18 06:26 Labs: Abnormal Lab Results - Last 24 Hours (Table) 11/29/18 11/29/18 11/29/18 Range/Units 11:31 17:10 20:00 Sodium (137-145) mmol/L Potassium (3.5-5.1) mmol/L Chloride (98-107) mmol/L Carbon Dioxide (22-30) mmol/L BUN (7-17) mg/dL Creatinine (0.52-1.04) mg/dL Glucose (74-99) mg/dL POC Glucose (mg/dL) 227 H 127 H 226 H (75-99) mg/dL Osmolality (280-301) mosm/kg HDL Cholesterol (40-60) mg/dL 11/30/18 11/30/18 11/30/18 Range/Units 06:26 06:26 07:18 Sodium 123 L (137-145) mmol/L Potassium 5.3 H (3.5-5.1) mmol/L Chloride 84 L (98-107) mmol/L Carbon Dioxide 31 H (22-30) mmol/L BUN 35 H (7-17) mg/dL Creatinine 1.05 H (0.52-1.04) mg/dL Glucose 172 H (74-99) mg/dL POC Glucose (mg/dL) 160 H (75-99) mg/dL Osmolality 271 L (280-301) mosm/kg HDL Cholesterol 61 H (40-60) mg/dL Assessment and Plan Plan: Assessment: #1. Acute hypoxemic respiratory failure, multifactorial, chest x-ray showed new right basilar and right middle lobe acute infiltrate, possibly related to a pneumonic infiltrate, and mild central vascular congestion, fluid in the fissure suggestive of acute congestive heart failure #2. Severe mitral regurgitation #3. Cardiomyopathy, echocardiogram showed EF of 40-45% #4. Chronic bronchial asthma, with recent switch from Qvar to Symbicort for symptoms of worsening dyspnea, attributed to poor asthma control, could have been related to underlying valvular dysfunction #5. Past history of smoking, patient quit 21 years ago, but carries 33 years of smoking of one or 2 packs per day #6. Hyponatremia, with initial improvement, and on today's labs on 11/28/2018 is down to 129, after diuresis #7. Hyperkalemia, #8. Hypertension, hyperlipidemia Plan: Today's chest x-ray shows continued improvement in the appearance of multifocal airspace disease. Volume status is improving, continue with oral Lasix, 1200 mL fluid restriction view of low sodium. Daily electrolytes and renal profile. Daily weights, acute Icontinue with current dose of IV steroids, and antibiotic coverage. We'll continue to follow I performed a history & physical examination of the patient and discussed their management with my nurse practitioner, Felicita Gomes. I reviewed the nurse practitioner's note and agree with the documented findings and plan of care. Lung sounds are positive for diffuse wheezes. The findings and the impression was discussed with the patient. I attest to the documentation by the nurse practitioner. Time with Patient: Less than 30
[2018-11-30 11:52] LABS: Glucose,Whole Blood 156 mg/dL (75-99)
[2018-11-30] MEDS: MULTIVITAMINS, THERA 1 EACH TAB PO SCH (12:47)
[2018-11-30 16:51] LABS: Glucose,Whole Blood 209 mg/dL (75-99)
[2018-11-30 19:27] LABS: Glucose,Whole Blood 279 mg/dL (75-99)
[2018-11-30 21:26] LABS: Hemoglobin A1C 7.3 % (4.0-6.0)
[2018-11-30] MEDS: ATORVASTATIN 10 MG TAB PO SCH (22:16)
[2018-12-01] MEDS: SODIUM CHLORIDE 0.9% 1,000 ML IV SCH ×2 (00:25→20:41)
[2018-12-01] MEDS: methylPREDNISolone SOD SUCCI 40 MG/ML 1 ML VIAL IV SCH ×4 (00:37→23:24)
--- NOTE | 2018-12-01 00:49 | PN ---
PROGRESS NOTE DATE OF SERVICE: 11/30/2018. PRESENTING COMPLAINT: Short of breath. INTERVAL HISTORY: Patient admitted with COPD exacerbation, pneumonia, CHF exacerbation. Breathing slowly getting better. Still wheezing, slight cough. Appetite is slowly picking up. Has been up to the bathroom. REVIEW OF SYSTEMS: Done for constitutional, cardiovascular, GI, pulmonary; relevant findings as above. CURRENT MEDICATIONS: Reviewed, that include DuoNeb, Zithromax, ceftriaxone, IV Solu-Medrol. PHYSICAL EXAMINATION: Temperature 98.4, pulse 91, respirations 16, blood pressure 106/67, pulse ox 90 percent on room air. GENERAL APPEARANCE: Sitting up, tired-appearing. EYES: Pupil equal. Conjunctivae normal. NECK: JVD not raised. Mass not palpable. Respiratory effort increased. LUNGS: Diminished breath sounds. CARDIOVASCULAR: 1st and 2nd heart sounds normal. No edema. ABDOMEN: Soft, nontender. Liver and spleen not palpable. PSYCHIATRY: Alert and oriented x3. Mood and affect normal. INVESTIGATIONS: Sodium 123, potassium 5.3, BUN 35, creatinine 1.05. ASSESSMENT: 1. 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 2. Right lobe pneumonia suspect gram-negative organism. 3. Acute congestive heart failure exacerbation from systolic dysfunction, ejection fraction 40% to 45%. 4. Severe mitral regurgitation, nonrheumatic. 5. Diabetes mellitus type 2 on oral hypoglycemic. 6. Gastroesophageal reflux disease. 7. Hyperlipidemia. 8. Essential hypertension. 9. Obesity; BMI 31.2. 10.Hyponatremia, likely from diuresis. 11.Hyperkalemia, mild. PLAN: Continue current medication and treatment plan. The patient looks on the dry side. Will gently start hydration. MMODL / IJN: [id number] /
[2018-12-01] MEDS: IPRATROPIUM-ALBUTEROL 3 ML NEB INHALATION SCH ×6 (03:56→23:50)
[2018-12-01 07:11] LABS: Glucose,Whole Blood 153 mg/dL (75-99)
[2018-12-01] MEDS: AZITHROMYCIN 500 MG TAB PO SCH (07:54)
[2018-12-01] MEDS: INSULIN ASPART (NovoLOG) 100 UNIT/ML VIAL SQ SCH ×4 (07:54→20:41)
[2018-12-01] MEDS: METOPROLOL TARTRATE 25 MG TAB PO SCH ×2 (07:54→20:35)
[2018-12-01] MEDS: FUROSEMIDE 40 MG TAB PO SCH (07:55)
[2018-12-01] MEDS: PANTOPRAZOLE 40 MG TABLET PO SCH (07:55)
[2018-12-01] MEDS: metFORMIN 500 MG TAB PO SCH ×2 (07:55→17:24)
[2018-12-01] MEDS: LORATADINE 10 MG TAB PO SCH (07:55)
[2018-12-01] MEDS: amLODIPine 5 MG TAB PO SCH (07:55)
[2018-12-01] MEDS: ENOXAPARIN 40 MG/0.4 ML SYRINGE SQ SCH (07:56)
[2018-12-01] MEDS: TRIAMCINOLONE 0.1% CREAM 80 GM TUBE TOPICAL SCH ×2 (07:57→20:46)
[2018-12-01] MEDS: BUDESONIDE 1 MG/2 ML NEBU INHALATION SCH ×2 (09:06→20:42)
[2018-12-01 10:10] LABS: Calcium 9.4 mg/dL (8.4-10.2); Potassium 4.1 mmol/L (3.5-5.1)
--- NOTE | 2018-12-01 11:10 | P.PN ---
Subjective Progress Note Date: 12/01/18 Principal diagnosis: Acute exacerbation of chronic obstructive pulmonary disease, pneumonia, acute exacerbation of systolic congestive heart failure. This is a 78-year-old white female patient of Dr. Brittani Angel with past medical history of chronic bronchial asthma, hypertension, hyperlipidemia, past history of nicotine dependence, currently in remission, she quit smoking 21 years ago, but did smoke for 33 years 1-2 packs per day. Patient presents to the hospital on 11/26/2018 with complaints of worsening shortness of breath, chest tightness. She denied any fever or chills, at times she was able to bring up some thick phlegm. She states her PCP had switched her from Qvar to Symbicort in mid September, because patient was complaining of increased shortness of breath. She had been on Qvar for about a year, and her dyspnea was not well- controlled on it. When she was switched to Symbicort patient noticed immediate worsening in her dyspnea, increased wheezing, and chest tightness. Patient stopped it, and did try again resuming the Symbicort last week. However she experienced same symptoms of increased wheezing, chest tightness, and shortness of breath with Symbicort. Does not normally wear oxygen, but her pulse ox was noted to be at 70% at Dr. Angel's office, hence patient was sent to the emergency department for evaluation. Chest x-ray was completed and showed a new right basilar and probable right middle lobe infiltrate, cardiomegaly with mild central vessel congestion. EKG showed normal sinus rhythm without acute ischemic changes. Labs showed white blood cell count of 8.1, hemoglobin of 14.3, serum sodium was 129, potassium is 5.6, chloride was 92, CO2 is 26, BUN was 9, creatinine was 0.84. Troponin was negative 1, proBNP was elevated at 3020, influenza screen was negative. Patient remains on 4 L of oxygen and her pulse ox is around 92%, she is still short of breath and still has chest tightness, denies any fever or chills. She was started on antibiotic coverage in the form of Zithromax, nebulized bronchodilators and IV steroids. On 11/28/2018 patient seen in follow-up on medical surgical floor. She is awake and alert, in no acute distress, lung sounds reveal more bronchospastic rounds on today's exam compared to yesterday, no rales, no rhonchi. He is on 4 L of oxygen, with a pulse ox of 90-92%, still has exertional dyspnea with desaturation, low-grade fever of 99.0F this morning, patient has been diuresed overnight, and today's chest x-ray has been reviewed with Dr. Rebollar, it shows improvement in the appearance of right lower lobe perihilar infiltrate, there is persistent mild atelectasis at the left upper lung field, cardiomegaly. Today's lab work has been reviewed, and white blood cell count is 8.0, hemoglobin is 13.5, sodium is 129, potassium is 5.0, chloride is 87, B1 is 20 and creatinine is 1.19. Influenza screen was negative. No complaints of chest pain, not bringing up any sputum. On 11/29/2018 patient seen in follow-up on medical surgical floor. She is awake and alert, in no acute distress, still experiencing significant exertional dyspnea, but overall she states her breathing is improving, on today's exam her lung sounds are essentially clear. No wheezing, no rhonchi or rales. Room air pulse ox is 90%, OXYGEN 4 L of oxygen was 95%, but in view of exertional dyspnea patient still wears oxygen intermittently, we'll cut back the FiO2 down to 2 L. Her vital signs have been stable, no fever or chills, she is on a combination of Zithromax and Rocephin. She has had no chest pain, she is on daily dose of IV Lasix of 40 mg daily, her weight is down by 3 kg since admission. Today's labs have been reviewed, CBC is essentially unremarkable, serum sodium is 125, potassium is 5.5, chloride is 85, BUN is 28, and creatinine is 1.06. Cardiology consultation is pending. Today's chest x-ray has been reviewed, and shows improvement of the interstitial changes, persistent patchy midlung area of atelectasis or infiltrate. On 11/30/2018 patient seen in follow-up on medical surgical floor. She is resting in bed, still haven't quite a bit of exertional dyspnea, on today's exam there are some scattered wheezes, but overall less bronchospastic, no rhonchi or rales. Patient continues on oral Lasix, her volume status is improving, today's chest x-ray shows improving multifocal airspace disease in comparison to yesterday's chest x-ray. Pulse ox is 95% on 2 L per nasal cannula, no complaints of chest pain, patient has been evaluated by cardiology, and will have further workup in regards to severe mitral regurgitation likely on an outpatient basis, antibiotic coverage in the form of Rocephin and Zithromax, and was not able to produce a sputum for culture, no fever or chills. Today's labs have been reviewed, and shows downtrending sodium, 123, potassium is 5.3, chloride is 84, CO2 is 31, B1 is 35 and creatinine is 1.05. Patient has been transitioned over to oral treatment, will start fluid restriction as well. The patient is seen today 12/01/2017 in follow-up on the regular medical floor. She is awake and alert in no acute distress. She is breathing easier today as compared to yesterday. She is currently maintaining O2 saturations in the mid 90s on 2 L/m per nasal cannula. She's been afebrile. Slightly hypertensive. Sodium 129, chloride 85, creatinine 1.05. She is maintained on DuoNeb inhalations, IV Solu-Medrol, oral diuretics, antibiotics in the form of ceftriaxone and azithromycin. 0.9 normal saline at 50 MLS per hour. She is currently in a negative balance. Objective - Vital Signs Vital signs: Vital Signs Temp 97.8 F 12/01/18 07:00 Pulse 92 12/01/18 09:25 Resp 22 12/01/18 07:00 BP 160/83 12/01/18 07:00 Pulse Ox 95 12/01/18 07:00 Intake & Output 11/30/18 12/01/18 12/01/18 18:59 06:59 18:59 Intake Total 1108 200 200 Output Total 1200 1350 Balance -92 -1150 200 Intake: Intake, IV Titration 100 200 Amount Sodium Chloride 0.9% 1, 200 000 ml @ 50 mls/hr IV . Q20H [facility] Rx#:[id number] cefTRIAXone 1 gm In 100 Sodium Chloride 0.9% 50 ml @ 100 mls/hr IVPB Q24HR [facility] Rx#:[id number] Oral 568 200 Tube Feeding 20 Other 420 Output: Urine 1200 1350 Other: # Voids 4 - Exam GENERAL EXAM: Alert, active, comfortable in no apparent distress. On 2 L nasal cannula. HEAD: Normocephalic. EYES: Normal reaction of pupils, equal size. NOSE: Clear with pink turbinates. THROAT: No erythema or exudates. NECK: No masses, no JVD. CHEST: No chest wall deformity. LUNGS: Equal air entry with crackles in the posterior bases, few scattered rhonchi, end expiratory wheeze, diminished CVS: S1 and S2 normal with no audible murmur, regular rhythm. ABDOMEN: No hepatosplenomegaly, normal bowel sounds, no guarding or rigidity. SPINE: No scoliosis or deformity SKIN: No rashes CENTRAL NERVOUS SYSTEM: No focal deficits, tone is normal in all 4 extremities. EXTREMITIES: There is trace peripheral edema. No clubbing, no cyanosis. Peripheral pulses are intact. - Labs CBC & Chem 7: 11/29/18 06:59 12/01/18 08:44 Labs: Abnormal Lab Results - Last 24 Hours (Table) 11/30/18 11/30/18 11/30/18 Range/Units 06:26 11:34 16:47 Sodium (137-145) mmol/L Chloride (98-107) mmol/L Carbon Dioxide (22-30) mmol/L BUN (7-17) mg/dL Creatinine (0.52-1.04) mg/dL Glucose (74-99) mg/dL POC Glucose (mg/dL) 156 H 209 H (75-99) mg/dL Hemoglobin A1c 7.3 H (4.0-6.0) % 11/30/18 12/01/18 12/01/18 Range/Units 19:15 07:06 08:44 Sodium 129 L (137-145) mmol/L Chloride 85 L (98-107) mmol/L Carbon Dioxide 31 H (22-30) mmol/L BUN 38 H (7-17) mg/dL Creatinine 1.05 H (0.52-1.04) mg/dL Glucose 252 H (74-99) mg/dL POC Glucose (mg/dL) 279 H 153 H (75-99) mg/dL Hemoglobin A1c (4.0-6.0) % Assessment and Plan Assessment: Assessment: #1. Acute hypoxemic respiratory failure, multifactorial, chest x-ray showed new right basilar and right middle lobe acute infiltrate, possibly related to a pneumonic infiltrate, and mild central vascular congestion, fluid in the fissure suggestive of acute congestive heart failure #2. Severe mitral regurgitation #3. Cardiomyopathy, echocardiogram showed EF of 40-45% #4. Chronic bronchial asthma, with recent switch from Qvar to Symbicort for symptoms of worsening dyspnea, attributed to poor asthma control, could have been related to underlying valvular dysfunction #5. Past history of smoking, patient quit 21 years ago, but carries 33 years of smoking of one or 2 packs per day #6. Hyponatremia, with initial improvement, and on today's labs on 11/28/2018 is down to 129, after diuresis #7. Hyperkalemia, #8. Hypertension, hyperlipidemia Plan: The patient was seen and evaluated by Dr. Rebollar. She is improved today as compared to yesterday. Remains in a negative balance. Sodium slightly improved. Continue 0.9 at 50 MLS per hour. Continue with current pulmonary medications and antibiotics. Currently on oral Lasix. Will increase her act ivity as tolerated. We'll continue to follow and make further recommendations based on her clinical status. I, the cosigning physician, performed a history & physical examination of the patient. Lungs sounds with bilateral crackles, end expiratory wheeze, diminished. Maintaining good O2 saturations in the 90s on 2 L/m per nasal cannula. I discussed the assessment and plan of care with my nurse practitioner, Rona Deleon. I attest to the above note as dictated by her.
[2018-12-01 11:45] LABS: Glucose,Whole Blood 149 mg/dL (75-99)
[2018-12-01] MEDS: MULTIVITAMINS, THERA 1 EACH TAB PO SCH (12:26)
[2018-12-01 16:41] LABS: Glucose,Whole Blood 195 mg/dL (75-99)
--- NOTE | 2018-12-01 17:44 | PN ---
PROGRESS NOTE DATE OF SERVICE: 12/01/2018 PRESENTING COMPLAINT: Wheezing. INTERVAL HISTORY: Patient admitted with COPD exacerbation, pneumonia, CHF exacerbation. Also became hyponatremic. Patient was started on gentle hydration yesterday. Breathing is better but still wheezing. Sodium is slightly picked up. Did tolerate some diet. Family present. The patient has been up to the bathroom, did sit up on the chair. REVIEW OF SYSTEMS: Done for constitutional, cardiovascular, GI, pulmonary; relevant findings as above. CURRENT MEDICATIONS: Current medications are reviewed that include DuoNeb, Zithromax, IV ceftriaxone, IV Solu-Medrol, saline at 50 mL an hour. PHYSICAL EXAMINATION: On examination, temperature 99.1, pulse 92, respiration 16, blood pressure 129/63, pulse ox 94% on room air. GENERAL APPEARANCE: Sitting up, tired. EYES: Pupils equal. Conjunctivae normal. NECK: JVD not raised. Mass not palpable. RESPIRATORY: Effort increased. LUNGS: Diminished breath. Prolonged expiration and wheezing. CARDIOVASCULAR: First and second sounds normal. No edema. ABDOMEN: Soft, nontender. Liver and spleen not palpable. PSYCHIATRY: Alert and oriented x3. Mood and affect normal. INVESTIGATIONS: Sodium 129, potassium 4.1, BUN 38, creatinine 1.05. Accu-Cheks are noted. ASSESSMENT: 1. 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 2. Right lower lobe pneumonia suspect gram-negative organism. 3. Acute congestive heart failure exacerbation from systolic dysfunction, ejection fraction 40% to 45%, now stabilized. 4. Severe mitral regurgitation, nonrheumatic. 5. Diabetes mellitus type 2 on oral hypoglycemic. 6. Gastroesophageal reflux disease. 7. Hyperlipidemia. 8. Essential hypertension. 9. Obesity, body mass index 31.2. 10.Hyponatremia, likely from diuresis. PLAN: Keep the patient on current medication and treatment plan including bronchodilators, p.o. Lasix, gentle hydration. Will add . Labs for tomorrow morning. Check a serum osmolality. Encourage the patient to be out of bed. MMODL / IJN: [id number] /
[2018-12-01 20:33] LABS: Glucose,Whole Blood 131 mg/dL (75-99)
[2018-12-01] MEDS: CEFDINIR 300 MG CAP PO SCH (20:33)
[2018-12-01] MEDS: ATORVASTATIN 10 MG TAB PO SCH (20:35)
[2018-12-02] MEDS: IPRATROPIUM-ALBUTEROL 3 ML NEB INHALATION SCH ×3 (04:30→11:47)
[2018-12-02 07:23] LABS: Glucose,Whole Blood 172 mg/dL (75-99)
[2018-12-02] MEDS: FUROSEMIDE 40 MG TAB PO SCH (07:29)
[2018-12-02] MEDS: CEFDINIR 300 MG CAP PO SCH (07:29)
[2018-12-02] MEDS: amLODIPine 5 MG TAB PO SCH (07:29)
[2018-12-02] MEDS: PANTOPRAZOLE 40 MG TABLET PO SCH (07:29)
[2018-12-02] MEDS: METOPROLOL TARTRATE 25 MG TAB PO SCH (07:29)
[2018-12-02] MEDS: LORATADINE 10 MG TAB PO SCH (07:29)
[2018-12-02] MEDS: ENOXAPARIN 40 MG/0.4 ML SYRINGE SQ SCH (07:29)
[2018-12-02] MEDS: metFORMIN 500 MG TAB PO SCH (07:29)
[2018-12-02] MEDS: methylPREDNISolone SOD SUCCI 40 MG/ML 1 ML VIAL IV SCH (07:29)
[2018-12-02] MEDS: INSULIN ASPART (NovoLOG) 100 UNIT/ML VIAL SQ SCH ×2 (07:30→12:24)
[2018-12-02] MEDS: TRIAMCINOLONE 0.1% CREAM 80 GM TUBE TOPICAL SCH (07:30)
[2018-12-02 07:50] VITALS: BP 157/79; RESP 20; TEMP 97.2
[2018-12-02] MEDS: BUDESONIDE 1 MG/2 ML NEBU INHALATION SCH (08:01)
[2018-12-02 08:49] LABS: Calcium 9.4 mg/dL (8.4-10.2); Potassium 4.3 mmol/L (3.5-5.1)
[2018-12-02] MEDS ORDERED: predniSONE 20 MG TAB PO SCH (09:00)
--- NOTE | 2018-12-02 10:57 | P.PN ---
Subjective Progress Note Date: 12/02/18 Principal diagnosis: Dyspnea, COPD, asthma exacerbation, hypoxemia, CHF with systolic dysfunction, pneumonia This is a 78-year-old white female patient of Dr. Brittani Angel with past medical history of chronic bronchial asthma, hypertension, hyperlipidemia, past history of nicotine dependence, currently in remission, she quit smoking 21 years ago, but did smoke for 33 years 1-2 packs per day. Patient presents to the hospital on 11/26/2018 with complaints of worsening shortness of breath, chest tightness. She denied any fever or chills, at times she was able to bring up some thick phlegm. She states her PCP had switched her from Qvar to Symbicort in mid September, because patient was complaining of increased shortness of breath. She had been on Qvar for about a year, and her dyspnea was not well- controlled on it. When she was switched to Symbicort patient noticed immediate worsening in her dyspnea, increased wheezing, and chest tightness. Patient stopped it, and did try again resuming the Symbicort last week. However she experienced same symptoms of increased wheezing, chest tightness, and shortness of breath with Symbicort. Does not normally wear oxygen, but her pulse ox was noted to be at 70% at Dr. Angel's office, hence patient was sent to the em ergency department for evaluation. Chest x-ray was completed and showed a new right basilar and probable right middle lobe infiltrate, cardiomegaly with mild central vessel congestion. EKG showed normal sinus rhythm without acute ischemic changes. Labs showed white blood cell count of 8.1, hemoglobin of 14.3, serum sodium was 129, potassium is 5.6, chloride was 92, CO2 is 26, BUN was 9, creatinine was 0.84. Troponin was negative 1, proBNP was elevated at 3020, influenza screen was negative. Patient remains on 4 L of oxygen and her pulse ox is around 92%, she is still short of breath and still has chest tightness, denies any fever or chills. She was started on antibiotic coverage in the form of Zithromax, nebulized bronchodilators and IV steroids. On 11/28/2018 patient seen in follow-up on medical surgical floor. She is awake and alert, in no acute distress, lung sounds reveal more bronchospastic rounds on today's exam compared to yesterday, no rales, no rhonchi. He is on 4 L of oxygen, with a pulse ox of 90-92%, still has exertional dyspnea with desaturation, low-grade fever of 99.0F this morning, patient has been diuresed overnight, and today's chest x-ray has been reviewed with Dr. Rebollar, it shows improvement in the appearance of right lower lobe perihilar infiltrate, there is persistent mild atelectasis at the left upper lung field, cardiomegaly. Today's lab work has been reviewed, and white blood cell count is 8.0, hemoglobin is 13.5, sodium is 129, potassium is 5.0, chloride is 87, B1 is 20 and creatinine is 1.19. Influenza screen was negative. No complaints of chest pain, not bringing up any sputum. On 11/29/2018 patient seen in follow-up on medical surgical floor. She is awake and alert, in no acute distress, still experiencing significant exertional dyspnea, but overall she states her breathing is improving, on today's exam her lung sounds are essentially clear. No wheezing, no rhonchi or rales. Room air pulse ox is 90%, OXYGEN 4 L of oxygen was 95%, but in view of exertional dyspnea patient still wears oxygen intermittently, we'll cut back the FiO2 down to 2 L. Her vital signs have been stable, no fever or chills, she is on a combination of Zithromax and Rocephin. She has had no chest pain, she is on daily dose of IV Lasix of 40 mg daily, her weight is down by 3 kg since admission. Today's labs have been reviewed, CBC is essentially unremarkable, serum sodium is 125, potassium is 5.5, chloride is 85, BUN is 28, and creatinine is 1.06. Cardiology consultation is pending. Today's chest x-ray has been reviewed, and shows im provement of the interstitial changes, persistent patchy midlung area of atelectasis or infiltrate. On 11/30/2018 patient seen in follow-up on medical surgical floor. She is resting in bed, still haven't quite a bit of exertional dyspnea, on today's exam there are some scattered wheezes, but overall less bronchospastic, no rhonchi or rales. Patient continues on oral Lasix, her volume status is improving, today's chest x-ray shows improving multifocal airspace disease in comparison to yesterday's chest x-ray. Pulse ox is 95% on 2 L per nasal cannula, no complaints of chest pain, patient has been evaluated by cardiology, and will have further workup in regards to severe mitral regurgitation likely on an outpatient basis, antibiotic coverage in the form of Rocephin and Zithromax, and was not able to produce a sputum for culture, no fever or chills. Today's labs have been reviewed, and shows downtrending sodium, 123, potassium is 5.3, chloride is 84, CO2 is 31, B1 is 35 and creatinine is 1.05. Patient has been transitioned over to oral treatment, will start fluid restriction as well. On 12/02/2018 patient seen in follow-up on medical surgical floor. Well, breathing much easier, remains on 2 L per nasal cannula and her pulse ox is 91- 94%, room air pulse ox was 85%, and patient does qualify for home oxygen, patient is afebrile, hemodynamically stable, compensated chest pain, less dyspneic and less wheezy. She is on IV diuretics, and 40 mg once daily, maintaining negative fluid balance, negative 450 ML over the last 24 hours, today's labs have been reviewed serum sodium stable, at 129, potassium is 4.3, chloride is 86, CO2 32, BUN is 39 creatinine is 1.10. Serum osmolality is within normal limits at 287. From pulmonary perspective patient has significantly improved, could be considered for discharge home today on home oxygen, patient course of antibiotics and prednisone Objective - Vital Signs Vital signs: Vital Signs Temp 97.2 F L 12/02/18 07:00 Pulse 88 12/02/18 08:18 Resp 20 12/02/18 07:00 BP 157/79 12/02/18 07:00 Pulse Ox 94 L 12/01/18 23:00 Intake & Output 12/01/18 12/02/18 12/02/18 17:59 06:59 18:59 Intake Total 200 Output Total Balance 200 Weight 71.412 kg Intake: Oral 200 Output: Urine Other: # Voids - Exam GENERAL EXAM: Alert, pleasant, 78-year-old white female on 2 L of oxygen with pulse ox of 94% comfortable in no apparent distress. HEAD: Normocephalic/atraumatic. EYES: Normal reaction of pupils, equal size. Conjunctiva pink, sclera white. NOSE: Clear with pink turbinates. THROAT: No erythema or exudates. NECK: No masses, no JVD, no thyroid enlargement, no adenopathy. CHEST: No chest wall deformity. Symmetrical expansion. LUNGS: Equal air entry with no wheezes, no rhonchi, no rales CVS: Regular rate and rhythm, normal S1 and S2, no gallops, no murmurs, no rubs ABDOMEN: Soft, nontender. No hepatosplenomegaly, normal bowel sounds, no guarding or rigidity. EXTREMITIES: No clubbing, no edema, no cyanosis, 2+ pulses and upper and lower extremities. MUSCULOSKELETAL: Muscle strength and tone normal. SPINE: No scoliosis or deformity SKIN: No rashes CENTRAL NERVOUS SYSTEM: Alert and oriented -3. No focal deficits, tone is normal in all 4 extremities. PSYCHIATRIC: Alert and oriented -3. Appropriate affect. Intact judgment and insight. - Labs CBC & Chem 7: 11/29/18 06:59 12/02/18 08:10 Labs: Abnormal Lab Results - Last 24 Hours (Table) 12/01/18 12/01/18 12/01/18 Range/Units 08:44 11:33 16:28 Sodium 129 L (137-145) mmol/L Chloride 85 L (98-107) mmol/L Carbon Dioxide 31 H (22-30) mmol/L BUN 38 H (7-17) mg/dL Creatinine 1.05 H (0.52-1.04) mg/dL Glucose 252 H (74-99) mg/dL POC Glucose (mg/dL) 149 H 195 H (75-99) mg/dL 12/01/18 12/02/18 12/02/18 Range/Units 20:30 07:20 08:10 Sodium 129 L (137-145) mmol/L Chloride 86 L (98-107) mmol/L Carbon Dioxide 32 H (22-30) mmol/L BUN 39 H (7-17) mg/dL Creatinine 1.10 H (0.52-1.04) mg/dL Glucose 236 H (74-99) mg/dL POC Glucose (mg/dL) 131 H 172 H (75-99) mg/dL Assessment and Plan Plan: Assessment: #1. Acute hypoxemic respiratory failure, multifactorial, chest x-ray showed new right basilar and right middle lobe acute infiltrate, possibly related to a pneumonic infiltrate, and mild central vascular congestion, fluid in the fissure suggestive of acute congestive heart failure #2. Severe mitral regurgitation #3. Cardiomyopathy, echocardiogram showed EF of 40-45% #4. Chronic bronchial asthma, with recent switch from Qvar to Symbicort for symptoms of worsening dyspnea, attributed to poor asthma control, could have been related to underlying valvular dysfunction #5. Past history of smoking, patient quit 21 years ago, but carries 33 years of smoking of one or 2 packs per day #6. Hyponatremia, with initial improvement, and on today's labs on 11/28/2018 is down to 129, after diuresis #7. Hyperkalemia, #8. Hypertension, hyperlipidemia Plan: Patient is stable, improving, does qualify for home oxygen, will arrange for home oxygen 2 L per nasal cannula for a pulse ox of 85% at rest on room air. No chest pain, no worsening dyspnea, patient has been ambulating, tolerating activity fairly well, we'll switch IV steroids to oral prednisone, IV Lasix to oral Lasix, from pulmonary perspective patient is stable for discharge home today. She will need to see Dr. Rebollar in the office sometime midweek next week as she has upcoming outpatient MELO with cardiology in 1 week regards to the severe mitral regurgitation. I performed a history & physical examination of the patient and discussed their management with my nurse practitioner, Felicita Gomes. I reviewed the nurse practitioner's note and agree with the documented findings and plan of care. Lung sounds are positive for diffuse wheezes. The findings and the impression was discussed with the patient. I attest to the documentation by the nurse practitioner. Time with Patient: Less than 30
[2018-12-02 11:29] LABS: Glucose,Whole Blood 145 mg/dL (75-99)
[2018-12-02 11:59] VITALS: PULSE 89
[2018-12-02] MEDS: MULTIVITAMINS, THERA 1 EACH TAB PO SCH (12:25)
--- NOTE | 2018-12-02 18:53 | DS ---
DISCHARGE SUMMARY DATE OF ADMISSION: November 26, 2018 DATE OF DISCHARGE: December 02, 2018. FINAL DIAGNOSES: 1. 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 2. Right lower lobe pneumonia suspect gram-negative organism. 3. Acute congestive heart failure exacerbation from systolic dysfunction EF 40-45 percent. 4. Severe mitral regurgitation, nonrheumatic. 5. Diabetes mellitus type 2 on oral hypoglycemic. 6. Gastroesophageal reflux disease. 7. Hyperlipidemia. 8. Essential hypertension. 9. Obesity; BMI 31.2. 10.Hyponatremia, likely from diuresis with normal osmolality. 11.Acute hypoxic respiratory failure from chronic obstructive pulmonary disease exacerbation pneumonia. HOSPITAL COURSE: This patient presented with COPD exacerbation and CHF exacerbation and pneumonia. Responded well to steroids, antibiotics bronchodilators. The patient is feeling better by the time of discharge. The patient is requiring oxygen before discharge. CONSULTATIONS: Dr. Rebollar from Pulmonary, Dr. Chavarria from Cardiology. The patient 2D echocardiogram showed the above EF. The patient doing better by the time of discharge. Care was discussed with the patient on day of discharge. Questions were answered. PHYSICAL EXAMINATION: Temperature 97.2, pulse 80, respiratory 20, blood pressure 157/79. The patient was desaturating on room air. LUNGS: Diminished breath sounds. Minimal wheezing. CARDIOVASCULAR: First and second sounds normal. Discussion and discharge planning more than 35 minutes. DISCHARGE MEDICATIONS: 1. Ventolin HFA 1 or 2 puffs q.6h p.r.n. 2. Vitamin D3 2000 units p.o. daily. 3. Claritin 10 mg daily. 4. Multivitamin 1 tablet p.o. daily. 5. Prilosec 20 mg with breakfast. 6. Metformin 500 mg b.i.d. 7. Symbicort 160/4.5, 2 puffs b.i.d. 8. Mevacor 60 mg q.h.s. 9. Kenalog 0.1% topical b.i.d. 10.Vitamin E 1000 units p.o. daily. 11.Omnicef 300 mg p.o. b.i.d. 12.Lasix 40 mg p.o. q.48 hours. 13.DuoNeb 3 mL q.i.d. 14.Lopressor 25 mg b.i.d. 15.Norvasc 5 mg p.o. daily. 16.Prednisone taper. FOLLOWUP: Follow up with Dr. Rebollar in 3 days. Follow up with Dr. Chavarria on December 11, 2018. Follow up with Dr. Angel in 3 days. [facility] to follow. Home oxygen is being arranged. Discussion and discharge planning more than [address] Angel. MMODL / IJN: [id number] /
== END 2018-12-02 16:02 | disposition home health service (06) | DRG 177 ==
LOC: EC 14:42 → 4SSUR 17:31
PROVIDERS: ADMIT Hospitalist; ATTEND Hospitalist
DX: J15.6 Pneumonia due to other Gram-negative bacteria (principal); I50.23 Acute on chronic systolic (congestive) heart failure; J96.01 Acute respiratory failure with hypoxia; J44.1 Chronic obstructive pulmonary disease with (acute) exacerbation; J45.901 Unspecified asthma with (acute) exacerbation; E87.1 Hypo-osmolality and hyponatremia; I42.9 Cardiomyopathy, unspecified; J98.11 Atelectasis; N17.9 Acute kidney failure, unspecified; J44.0 Chronic obstructive pulmonary disease with (acute) lower respiratory infection; E87.5 Hyperkalemia; I11.0 Hypertensive heart disease with heart failure; E11.9 Type 2 diabetes mellitus without complications; I34.0 Nonrheumatic mitral (valve) insufficiency; E66.9 Obesity, unspecified; E78.5 Hyperlipidemia, unspecified; K21.9 Gastro-esophageal reflux disease without esophagitis; T50.2X5A Adverse effect of carbonic-anhydrase inhibitors, benzothiadiazides and other diuretics, initial encounter; Z68.31 Body mass index [BMI] 31.0-31.9, adult; Z79.51 Long term (current) use of inhaled steroids; Z79.84 Long term (current) use of oral hypoglycemic drugs; Z79.899 Other long term (current) drug therapy; Z87.891 Personal history of nicotine dependence; Z88.0 Allergy status to penicillin; Z88.6 Allergy status to analgesic agent; Z91.030 Bee allergy status; Z91.040 Latex allergy status; Z80.9 Family history of malignant neoplasm, unspecified
CPT/HCPCS: 36415; 71045; 71046; 80048; 80061; 82533; 82803; 83036; 83735; 83880; 83930; 84484; 85025; 85027; 85610; 87070; 87205; 87502; 93005; 93306; 94640; 94760; 96365; 96366; 96368; 99285

== ENCOUNTER → 2019-02-22 | Outpatient (CLI) | payer MEDICARE ==
--- NOTE | 2019-02-22 08:38 | CT ---
EXAMINATION TYPE: CT chest w con DATE OF EXAM: 02/22/2019 COMPARISON: HISTORY: Pneumonia twice since November CT DLP: 272.2 mGycm Automated exposure control for dose reduction was used. CONTRAST: CT scan of the chest is performed with IV Contrast, patient injected with 100 mL of Isovue 300. FINDINGS: LUNGS: Atelectasis right lower lobe. Additional atelectasis or parenchymal scarring right upper lobe. Linear parenchymal scar atelectasis in the region of the left lower lobe anteriorly. No focal consol idation. No nodule or mass is identified. Minimal emphysematous change left upper lobe. MEDIASTINUM: Incidental aberrant right subclavian artery courses posterior to the esophagus. There ar e no greater than 1 cm hilar or mediastinal lymph nodes. No pericardial effusion is seen. Thoracic aorta is of normal caliber. The heart is not enlarged. UPPER ABDOMEN: No significant abnormality appreciated. OTHER: No additional significant abnormality is seen. IMPRESSION: 1. Scattered areas of atelectasis and/or parenchymal scarring. No acute infiltrate is appreciated at this time. 2. Aberrant right subclavian artery.
== END | disposition home or self-care (01) ==
LOC: RADCTMAIN 06:00
PROVIDERS: ATTEND Internal Medicine
DX: J98.11 Atelectasis (principal); Q27.8 Other specified congenital malformations of peripheral vascular system; J96.01 Acute respiratory failure with hypoxia; Z88.6 Allergy status to analgesic agent; Z88.0 Allergy status to penicillin; Z91.040 Latex allergy status
CPT/HCPCS: 82565; 84520; 71260; 36415; Q9967

== ENCOUNTER 2019-04-07 09:44 | Inpatient (IN) | payer MEDICARE ==
[2019-04-07] MEDS ORDERED: ALBUTEROL NEBULIZED 2.5 MG/3 ML INHALATION STA (10:39)
[2019-04-07] MEDS ORDERED: methylPREDNISolone SOD SUCCI 125 MG/2 ML VIAL IV STA (10:39)
--- NOTE | 2019-04-07 10:45 | ED ---
General Adult HPI - General Chief complaint: Shortness of Breath Stated complaint: SOB Time Seen by Provider: 04/07/19 10:10 Source: patient, family, RN notes reviewed Mode of arrival: wheelchair Limitations: no limitations - History of Present Illness Initial comments: This is a 78-year-old female who has a past medical history significant for COPD. Patient comes into the emergency department stating that she's had more difficulty breathing lately particularly at night. Patient states she's on oxygen 24 hours a day. Patient states she's been using breathing treatments at home but it does not seem to be helping. Patient also states she has a cough with positive. Production. Patient denies any chest pain or palpitations. Patient denies any lightheadedness dizziness or near syncopal episode. Patient denies headache patient denies numbness weakness per patient denies abdominal pain patient denies nausea vomiting diarrhea per patient denies back pain. Patient denies dysuria hematuria urinary. 2. Patient denies any swelling to the legs or calf tenderness. - Related Data Home Medications Medication Instructions Recorded Confirmed Albuterol Inhaler [Ventolin Hfa 1 - 2 puff INHALATION RT-Q6H PRN 09/08/15 04/07/19 Inhaler] Cholecalciferol [Vitamin D3 (25 2,000 unit PO DAILY 09/08/15 04/07/19 Mcg = 1000 Iu)] Loratadine [Claritin] 10 mg PO DAILY 09/08/15 04/07/19 Multivitamins, Thera [Multivitamin 1 tab PO DAILY@1200 09/08/15 04/07/19 (formulary)] Omeprazole [PriLOSEC] 20 mg PO AC-BRKFST 09/08/15 04/07/19 metFORMIN HCL [Glucophage] 1,000 mg PO BID 09/08/15 04/07/19 Triamcinolone 0.1% Cream [Kenalog 1 applic TOPICAL BID PRN 11/26/18 04/07/19 0.1% Cream] Eye Itch 1 drop BOTH EYES Q4H PRN 04/07/19 04/07/19 Ipratropium-Albuterol Nebulize 3 ml INHALATION RT-QID 04/07/19 04/07/19 [Duoneb 0.5 mg-3 mg/3 ml Soln] amLODIPine [Norvasc] 10 mg PO DAILY 04/07/19 04/07/19 predniSONE 5 mg PO DAILY 04/07/19 04/07/19 Previous Rx's Medication Instructions Recorded Furosemide [Lasix] 40 mg PO Q48H #30 tab 12/02/18 Metoprolol Tartrate [Lopressor] 25 mg PO BID #60 tab 12/02/18 Allergies Allergy/AdvReac Type Severity Reaction Status Date / Time aspirin Allergy Rash/Hives Verified 04/07/19 10:37 latex Allergy Rash/Hives Verified 04/07/19 10:37 Penicillins Allergy Unknown Verified 04/07/19 10:37 Childhood venom-honey bee Allergy Dyspnea, Verified 04/07/19 10:37 [bee venom (honey bee)] HIVES Review of Systems ROS Statement: Those systems with pertinent positive or pertinent negative responses have been documented in the HPI. ROS Other: All systems not noted in ROS Statement are negative. Past Medical History Past Medical History: Asthma, Diabetes Mellitus, Eye Disorder, GERD/Reflux, Hyperlipidemia, Hypertension Additional Past Medical History / Comment(s): leaking heart valve History of Any Multi-Drug Resistant Organisms: None Reported Past Surgical History: Breast Surgery Additional Past Surgical History / Comment(s): EXC LT BREAST LUMP. COLONOSCOPY, EGD. Past Anesthesia/Blood Transfusion Reactions: No Reported Reaction Past Psychological History: No Psychological Hx Reported Smoking Status: Former smoker Past Alcohol Use History: None Reported Past Drug Use History: None Reported - Past Family History Mother Sister(s) Family Medical History: Cancer General Exam - General Exam Comments Initial Comments: GENERAL: Patient is well-developed and well-nourished. Patient is nontoxic and well-h ydrated and is in mild distress. ENT: Neck is soft and supple. No significant lymphadenopathy is noted. Oropharynx is clear. Moist mucous membranes. Neck has full range of motion without eliciting any pain. EYES: The sclera were anicteric and conjunctiva were pink and moist. Extraocular move ments were intact and pupils were equal round and reactive to light. Eyelids were unremarkable. PULMONARY: Diffuse expiratory wheezing CARDIOVASCULAR: There is a regular rate and rhythm without any murmurs gallops or rubs. ABDOMEN: Soft and nontender with normal bowel sounds. SKIN: Skin is clear with no lesions or rashes and otherwise unremarkable. NEUROLOGIC: Patient is alert and oriented x3. Cranial nerves II through XII are grossly intact. Motor and sensory are also intact. Normal speech, volume and content. Symmetrical smile. MUSCULOSKELETAL: Normal extremities with adequate strength and full range of motion. No lower extremity swelling or edema. No calf tenderness. LYMPHATICS: No significant lymphadenopathy is noted PSYCHIATRIC: Normal psychiatric evaluation. Limitations: no limitations Course Vital Signs 04/07/19 04/07/19 04/07/19 10:13 11:10 11:13 Temperature 98.1 F Pulse Rate 98 99 Respiratory 20 24 Rate Blood Pressure 195/81 O2 Sat by Pulse 88 L Oximetry 04/07/19 04/07/19 04/07/19 11:33 11:41 12:17 Temperature Pulse Rate 102 H 104 H 104 H Respiratory 20 26 H Rate Blood Pressure 144/60 134/83 O2 Sat by Pulse 93 L 85 L Oximetry 04/07/19 15:10 Temperature Pulse Rate 94 Respiratory Rate Blood Pressure O2 Sat by Pulse Oximetry Medical Decision Making - Medical Decision Making EKG shows sinus rhythm with occasional PVC at 96 bpm NE interval 132 QRS is 88 QT interval 346 QTC is 437 per patient's EKG shows no ST segment elevation or depression or T wave abnormalities are noted. Patient is a perihilar infiltrate consistent with pneumonia. Patient received 3 breathing treatments she was improved afterwards but still not to her baseline. Patient also received Solu-Medrol. I spoke with Dr. Garza he agreed to admit the patient admitted the patient I wrote admitting orders. - Lab Data Result diagrams: 04/07/19 11:00 04/07/19 11:00 Lab Results 04/07/19 04/07/19 04/07/19 Range/Units 11:00 11:00 11:00 WBC 9.6 (3.8-10.6) k/uL RBC 4.11 (3.80-5.40) m/uL Hgb 12.7 (11.4-16.0) gm/dL Hct 38.7 (34.0-46.0) % MCV 94.2 (80.0-100.0) fL MCH 30.8 (25.0-35.0) pg MCHC 32.7 (31.0-37.0) g/dL RDW 14.2 (11.5-15.5) % Plt Count 221 (150-450) k/uL Neutrophils % 72 % Lymphocytes % 12 % Monocytes % 7 % Eosinophils % 7 % Basophils % 0 % Neutrophils # 6.9 (1.3-7.7) k/uL Lymphocytes # 1.1 (1.0-4.8) k/uL Monocytes # 0.7 (0-1.0) k/uL Eosinophils # 0.6 (0-0.7) k/uL Basophils # 0.0 (0-0.2) k/uL PT (9.0-12.0) sec INR (<1.2) APTT (22.0-30.0) sec Sodium 134 L (137-145) mmol/L Potassium 4.9 (3.5-5.1) mmol/L Chloride 91 L (98-107) mmol/L Carbon Dioxide 36 H (22-30) mmol/L Anion Gap 7 mmol/L BUN 16 (7-17) mg/dL Creatinine 0.78 (0.52-1.04) mg/dL Est GFR (CKD-EPI)AfAm 85 (>60 ml/min/1.73 sqM) Est GFR (CKD-EPI)NonAf 74 (>60 ml/min/1.73 sqM) Glucose 158 H (74-99) mg/dL Calcium 9.0 (8.4-10.2) mg/dL Magnesium 1.0 L (1.6-2.3) mg/dL Total Bilirubin 0.5 (0.2-1.3) mg/dL AST 19 (14-36) U/L ALT 28 (9-52) U/L Alkaline Phosphatase 51 (38-126) U/L Troponin I (0.000-0.034) ng/mL NT-Pro-B Natriuret Pep 964 pg/mL Total Protein 6.8 (6.3-8.2) g/dL Albumin 4.2 (3.5-5.0) g/dL 04/07/19 04/07/19 Range/Units 11:00 11:00 WBC (3.8-10.6) k/uL RBC (3.80-5.40) m/uL Hgb (11.4-16.0) gm/dL Hct (34.0-46.0) % MCV (80.0-100.0) fL MCH (25.0-35.0) pg MCHC (31.0-37.0) g/dL RDW (11.5-15.5) % Plt Count (150-450) k/uL Neutrophils % % Lymphocytes % % Monocytes % % Eosinophils % % Basophils % % Neutrophils # (1.3-7.7) k/uL Lymphocytes # (1.0-4.8) k/uL Monocytes # (0-1.0) k/uL Eosinophils # (0-0.7) k/uL Basophils # (0-0.2) k/uL PT 9.6 (9.0-12.0) sec INR 0.9 (<1.2) APTT 22.8 (22.0-30.0) sec Sodium (137-145) mmol/L Potassium (3.5-5.1) mmol/L Chloride (98-107) mmol/L Carbon Dioxide (22-30) mmol/L Anion Gap mmol/L BUN (7-17) mg/dL Creatinine (0.52-1.04) mg/dL Est GFR (CKD-EPI)AfAm (>60 ml/min/1.73 sqM) Est GFR (CKD-EPI)NonAf (>60 ml/min/1.73 sqM) Glucose (74-99) mg/dL Calcium (8.4-10.2) mg/dL Magnesium (1.6-2.3) mg/dL Total Bilirubin (0.2-1.3) mg/dL AST (14-36) U/L ALT (9-52) U/L Alkaline Phosphatase (38-126) U/L Troponin I <0.012 (0.000-0.034) ng/mL NT-Pro-B Natriuret Pep pg/mL Total Protein (6.3-8.2) g/dL Albumin (3.5-5.0) g/dL Critical Care Time Critical Care Time: Yes Total Critical Care Time: 35 Disposition Clinical Impression: Acute exacerbation of chronic obstructive airways disease, Pneumonia, Hypomagnesemia Disposition: ADMITTED IP TO THIS [facility] Time of Disposition: 11:58
[2019-04-07 11:10] LABS: Basophils % (A) 0 %; Eosinophils # (A) 0.6 k/uL (0-0.7); Eosinophils % (A) 7 %; HCT 38.7 % (34.0-46.0); HGB 12.7 gm/dL (11.4-16.0); Lymphocytes # (A) 1.1 k/uL (1.0-4.8); Lymphocytes % (A) 12 %; MCH 30.8 pg (25.0-35.0); MCHC 32.7 g/dL (31.0-37.0); MCV 94.2 fL (80.0-100.0); Mean Platelet Volume 6.9; Monocytes # (A) 0.7 k/uL (0-1.0); Monocytes % (A) 7 %; Neutrophils # (A) 6.9 k/uL (1.3-7.7); Neutrophils % (A) 72 %; Platelet Count 221 k/uL (150-450); RBC 4.11 m/uL (3.80-5.40); RDW 14.2 % (11.5-15.5); WBC 9.6 k/uL (3.8-10.6)
--- NOTE | 2019-04-07 11:16 | XR ---
EXAMINATION TYPE: XR chest 2V DATE OF EXAM: 04/07/2019 COMPARISON: 12/12/2018 INDICATION: Difficulty breathing cough short of breath TECHNIQUE: Frontal and lateral views of the chest are obtained. FINDINGS: The heart size is mildly prominent. The pulmonary vasculature is normal. There is an infiltrate through the right perihilar region. Correlate for pneumonia. Follow-up is mike mmended to clearing.. IMPRESSION: 1. Right perihilar infiltrate likely pneumonia. Follow-up to clearing is recommended.
[2019-04-07 11:18] LABS: INR 0.9 (<1.2); Partial Thromboplastin Time 22.8 sec (22.0-30.0); Prothrombin Time 9.6 sec (9.0-12.0)
[2019-04-07 11:22] LABS: Albumin 4.2 g/dL (3.5-5.0); Potassium 4.9 mmol/L (3.5-5.1); Total Bilirubin 0.5 mg/dL (0.2-1.3); Total Protein 6.8 g/dL (6.3-8.2)
[2019-04-07] MEDS ORDERED: LEVOFLOXACIN 750MG-D5W PMX 750 MG in DEXTROSE/WATER 1 150ML.BAG IVPB STA (11:56)
[2019-04-07] MEDS ORDERED: IPRATROPIUM-ALBUTEROL 3 ML NEB INHALATION PRN (11:58)
[2019-04-07] MEDS: MAGNESIUM SULFATE-D5W PMX 1 GM in DEXTROSE/WATER 1 100ML.BAG IVPB SCH ×2 (16:36→19:03)
--- NOTE | 2019-04-07 16:43 | P.HPIM ---
History of Present Illness H&P Date: 04/07/19 Chief Complaint: Short of breath wheezing History of presenting complaint: This is a 78-year-old patient who follows with Dr. Angel. Her web services manager is Dr. Sheehan. Chronic stable medical conditions include diabetes, GERD, hypertension, hyperlipidemia. Did have asthma as a child and smoked for about 30 years. Patient does have home oxygen on 3 L. Patient presents with one-day of increasing shortness of breath wheezing cough. Had a creamy sputum production. We quite a bit short of breath and wheezing when she arrived here. He would bronchodilators to which she did feel a bit better. No fever no chills. Appetite is fair. at the bedside. Cannot lay down and had to be sitting up because of this last refill was at least. No edema. Review of systems: GEN.: Tired EYES: None HEENT: None NECK: None RESPIRATORY: As above CARDIOVASCULAR: None GASTROINTESTINAL: None GENITOURINARY: None MUSCULOSKELETAL: Some pain in the joints LYMPHATICS: None HEMATOLOGICAL: None PSYCHIATRY: None NEUROLOGICAL: None Past medical history: Asthma with COPD overlap syndrome, diabetes, GERD, hyperlipidemia, hypertension, congestive heart failure EF 40-45%, severe mitral regurgitation, chronic hypoxic respiratory failure on home oxygen 3 L Social history: Smoked for about 30 years. Stopped in 1997. . No severe alcohol history. Family history: Cancer type unknown Physical examination: VITAL SIGNS: 98.1, 98, 26, 195/81, 88% on 4 L GENERAL: BMI 30.7, sitting upon a chair, short of breath at rest. EYES: Pupils equal. Conjunctiva normal. HEENT: External appearance of nose and ears normal, oral cavity grossly normal. NECK: JVD not raised; masses not palpable. HEART: First and second heart sounds are normal; no edema. LUNGS: Respiratory rate increased, accessory muscles are working, not able to speak in full sentences, lungs poor air entry with prolonged expiration some extremity crackles. ABDOMEN: Soft, nontender, liver spleen not palpable, no masses palpable. PSYCH: Alert and oriented x3; mood and affect anxiousl. NEUROLOGICAL: Cranial nerves grossly intact; no facial asymmetry, power and sensation grossly intact. LYMPHATICS: No lymph nodes palpable in the axilla and neck Investigations, reviewed in the clinical context: Platelets 221 potassium 4.9 creatinine 0.78 EKG tracing personally reviewed by me shows sinus rhythm and P pulmonale Chest x-ray film personally reviewed by me shows right middle lobe infiltrate Assessment: -Right middle lobe pneumonia, suspect gram-negative organism, POA -Acute COPD/asthma or lab syndrome with acute exacerbation in an ex-smoker -Acute on chronic hypoxic respiratory failure from underlying COPD and pneumonia, POA -Diabetes mellitus type 2 on oral hypoglycemic -GERD -Hyperlipidemia -Essential hypertension -Chronic congestive heart failure from systolic dysfunction EF 40-45% -Severe mitral regurgitation nonrheumatic - Plan: Patient started on nebulized broncho-titers every 4 hours, IV and inhaled steroids. Accu-Cheks will be followed. Patient was given Lovenox for DVT prophylaxis. We'll also add Mucinex. Sent off r sputum for Gram stain and culture. Dr. Sheehan will be consulted. Care was discussed with the patient and the at the bedside. Past Medical History Past Medical History: Asthma, Diabetes Mellitus, Eye Disorder, GERD/Reflux, Hyperlipidemia, Hypertension Additional Past Medical History / Comment(s): leaking heart valve History of Any Multi-Drug Resistant Organisms: None Reported Past Surgical History: Breast Surgery Additional Past Surgical History / Comment(s): EXC LT BREAST LUMP. COLONOSCOPY, EGD. Past Anesthesia/Blood Transfusion Reactions: No Reported Reaction Past Psychological History: No Psychological Hx Reported Smoking Status: Former smoker Past Alcohol Use History: None Reported Additional Past Alcohol Use History / Comment(s): (SMOKED [id number] EST) Past Drug Use History: None Reported - Past Family History Mother Sister(s) Family Medical History: Cancer Medications and Allergies Home Medications Medication Instructions Recorded Confirmed Type Albuterol Inhaler [Ventolin Hfa 1 - 2 puff INHALATION RT-Q6H PRN 09/08/15 04/07/19 History Inhaler] Cholecalciferol [Vitamin D3 (25 2,000 unit PO DAILY 09/08/15 04/07/19 History Mcg = 1000 Iu)] Loratadine [Claritin] 10 mg PO DAILY 09/08/15 04/07/19 History Multivitamins, Thera [Multivitamin 1 tab PO DAILY@1200 09/08/15 04/07/19 History (formulary)] Omeprazole [PriLOSEC] 20 mg PO AC-BRKFST 09/08/15 04/07/19 History metFORMIN HCL [Glucophage] 1,000 mg PO BID 09/08/15 04/07/19 History Triamcinolone 0.1% Cream [Kenalog 1 applic TOPICAL BID PRN 11/26/18 04/07/19 History 0.1% Cream] Furosemide [Lasix] 40 mg PO Q48H #30 tab 12/02/18 04/07/19 Rx Metoprolol Tartrate [Lopressor] 25 mg PO BID #60 tab 12/02/18 04/07/19 Rx Eye Itch 1 drop BOTH EYES Q4H PRN 04/07/19 04/07/19 History Ipratropium-Albuterol Nebulize 3 ml INHALATION RT-QID 04/07/19 04/07/19 History [Duoneb 0.5 mg-3 mg/3 ml Soln] amLODIPine [Norvasc] 10 mg PO DAILY 04/07/19 04/07/19 History predniSONE 5 mg PO DAILY 04/07/19 04/07/19 History Allergies Allergy/AdvReac Type Severity Reaction Status Date / Time aspirin Allergy Rash/Hives Verified 04/07/19 10:37 latex Allergy Rash/Hives Verified 04/07/19 10:37 Penicillins Allergy Unknown Verified 04/07/19 10:37 Childhood venom-honey bee Allergy Dyspnea, Verified 04/07/19 10:37 [bee venom (honey bee)] HIVES Physical Exam Vitals: Vital Signs Temp Pulse Resp BP Pulse Ox 04/07/19 15:50 105 H 16 122/71 90 L 04/07/19 15:22 100 04/07/19 15:10 94 04/07/19 12:17 104 H 26 H 134/83 85 L 04/07/19 11:41 104 H 04/07/19 11:33 102 H 20 144/60 93 L 04/07/19 11:13 99 04/07/19 11:10 24 04/07/19 10:13 98.1 F 98 20 195/81 88 L Intake and Output 04/07/19 04/07/19 04/07/19 06:59 14:59 22:59 Other: Weight 68.946 kg Results CBC & Chem 7: 04/07/19 11:00 04/07/19 11:00 Labs: Abnormal Lab Results - Last 24 Hours (Table) 04/07/19 Range/Units 11:00 Sodium 134 L (137-145) mmol/L Chloride 91 L (98-107) mmol/L Carbon Dioxide 36 H (22-30) mmol/L Glucose 158 H (74-99) mg/dL Magnesium 1.0 L (1.6-2.3) mg/dL Thrombosis Risk Factor Assmnt - Choose All That Apply Any of the Below Risk Factors Present?: Yes Each Factor Represents 1 point: Abnormal pulmonary function (COPD), Obesity (BMI >25), Swollen legs (current) Other Risk Factors: Yes Each Risk Factor Represents 3 Points: Age 75 years or older Other congenital or acquired thrombophilia - If yes, enter type in comment: No Thrombosis Risk Factor Assessment Total Risk Factor Score: 6 Thrombosis Risk Factor Assessment Level: High Risk
[2019-04-07] MEDS ORDERED: [UNRECOGNIZED DRUG - OTHER] BOTH EYES PRN (16:49)
[2019-04-07] MEDS ORDERED: TRIAMCINOLONE 0.1% CREAM 80 GM TUBE TOPICAL PRN (16:49)
[2019-04-07 16:53] LABS: Glucose,Whole Blood 179 mg/dL (75-99)
[2019-04-07] MEDS: INSULIN ASPART (NovoLOG) 100 UNIT/ML VIAL SQ SCH ×2 (16:59→20:35)
[2019-04-07] MEDS: ENOXAPARIN 40 MG/0.4 ML SYRINGE SQ SCH (16:59)
[2019-04-07] MEDS: metFORMIN 500 MG TAB PO SCH (16:59)
[2019-04-07] MEDS: methylPREDNISolone SOD SUCCI 125 MG/2 ML VIAL IV SCH ×2 (17:01→23:08)
[2019-04-07] MEDS ORDERED: INSULIN ASPART (NovoLOG) 100 UNIT/ML VIAL SQ SCH (17:30)
[2019-04-07] MEDS: IPRATROPIUM-ALBUTEROL 3 ML NEB INHALATION SCH ×3 (18:55→23:52)
[2019-04-07] MEDS: BUDESONIDE 1 MG/2 ML NEBU INHALATION SCH (18:55)
[2019-04-07 20:22] LABS: Glucose,Whole Blood 212 mg/dL (75-99)
[2019-04-07] MEDS: METOPROLOL TARTRATE 25 MG TAB PO SCH (20:35)
[2019-04-07] MEDS: guaiFENesin 600 MG TABLET.ER PO SCH (20:35)
[2019-04-08] MEDS: IPRATROPIUM-ALBUTEROL 3 ML NEB INHALATION SCH ×6 (04:14→23:36)
[2019-04-08 06:33] LABS: Glucose,Whole Blood 199 mg/dL (75-99)
[2019-04-08] MEDS: metFORMIN 500 MG TAB PO SCH ×2 (06:48→17:58)
[2019-04-08] MEDS: methylPREDNISolone SOD SUCCI 125 MG/2 ML VIAL IV SCH ×3 (06:48→18:01)
[2019-04-08] MEDS: INSULIN ASPART (NovoLOG) 100 UNIT/ML VIAL SQ SCH ×4 (06:49→21:05)
[2019-04-08] MEDS: PANTOPRAZOLE 40 MG TABLET PO SCH (06:49)
[2019-04-08 07:45] LABS: Calcium 8.8 mg/dL (8.4-10.2); Magnesium 1.5 mg/dL (1.6-2.3); Potassium 4.9 mmol/L (3.5-5.1)
[2019-04-08] MEDS: BUDESONIDE 1 MG/2 ML NEBU INHALATION SCH ×2 (07:45→19:24)
[2019-04-08] MEDS: METOPROLOL TARTRATE 25 MG TAB PO SCH ×2 (09:19→21:05)
[2019-04-08] MEDS: ENOXAPARIN 40 MG/0.4 ML SYRINGE SQ SCH (09:19)
[2019-04-08] MEDS: guaiFENesin 600 MG TABLET.ER PO SCH ×2 (09:19→21:07)
[2019-04-08] MEDS: LORATADINE 10 MG TAB PO SCH (09:19)
[2019-04-08] MEDS: amLODIPine 10 MG TAB PO SCH (09:19)
[2019-04-08 12:08] LABS: Glucose,Whole Blood 130 mg/dL (75-99)
[2019-04-08] MEDS: MULTIVITAMINS, THERA 1 EACH TAB PO SCH (12:26)
[2019-04-08 16:48] LABS: Glucose,Whole Blood 218 mg/dL (75-99)
--- NOTE | 2019-04-08 17:55 | P.PN ---
Progress Note - Text Progress Note Date: 04/08/19 Chief Complaint: Short of breath wheezing Interval history: This is a 78-year-old patient who follows with Dr. Angel. Her hand painter is Dr. Sheehan. Admitted with COPD/asthma exacerbation and pneumonia Today-feels a bit better. Cough is present. Some sputum production. A bit less wheezing. Did tolerate her diet. Sitting up in a chair. Family is visiting. Tired. Review of systems: Was done for constitutional, cardiovascular, GI, pulmonary. relevant finding as above Active Medications Albuterol/Ipratropium (Duoneb 0.5 Mg-3 Mg/3 Ml Soln) 3 ml INHALATION RT-Q4H PRN PRN Reason: Shortness Of Breath Or Wheezing Last Admin: 04/07/19 15:09 Dose: 3 ml Documented by: Albuterol/Ipratropium (Duoneb 0.5 Mg-3 Mg/3 Ml Soln) 3 ml INHALATION RT-Q4H [facility] Last Admin: 04/08/19 15:11 Dose: 3 ml Documented by: Amlodipine Besylate (Norvasc) 10 mg PO DAILY [facility] Last Admin: 04/08/19 09:19 Dose: 10 mg Documented by: Budesonide (Pulmicort) 1 mg INHALATION RT-BID [facility] Last Admin: 04/08/19 07:45 Dose: 1 mg Documented by: Enoxaparin Sodium (Lovenox) 40 mg SQ DAILY [facility] Last Admin: 04/08/19 09:19 Dose: 40 mg Documented by: Guaifenesin (Mucinex) 1,200 mg PO Q12HR [facility] Last Admin: 04/08/19 09:19 Dose: 1,200 mg Documented by: Ceftriaxone Sodium 1 gm/ (Sodium Chloride) 50 mls @ 100 mls/hr IVPB Q24H [facility] Last Admin: 04/07/19 17:01 Dose: 100 mls/hr Documented by: Insulin Aspart (Novolog) 0 unit SQ ACHS [facility]; Protocol Last Admin: 04/08/19 12:21 Dose: Not Given Documented by: Loratadine (Claritin) 10 mg PO DAILY [facility] Last Admin: 04/08/19 09:19 Dose: 10 mg Documented by: Metformin HCl (Glucophage) 1,000 mg PO AC-BID [facility] Last Admin: 04/08/19 06:48 Dose: 1,000 mg Documented by: Methylprednisolone Sodium Succinate (Solu-Medrol) 60 mg IV Q6HR [facility] Last Admin: 04/08/19 12:26 Dose: 60 mg Documented by: Metoprolol Tartrate (Lopressor) 25 mg PO BID [facility] Last Admin: 04/08/19 09:19 Dose: 25 mg Documented by: Multivitamins (Theragran) 1 each PO DAILY@1200 [facility] Last Admin: 04/08/19 12:26 Dose: 1 each Documented by: Pantoprazole Sodium (Protonix) 40 mg PO AC-BRKFST [facility] Last Admin: 04/08/19 06:49 Dose: 40 mg Documented by: Triamcinolone Acetonide (Kenalog) 1 applic TOPICAL BID PRN PRN Reason: Rash Physical examination: VITAL SIGNS: 97.9, 119, 20, 127/59, 89% on 4 L GENERAL: Sitting up in a chair, tired slightly short of breath EYES: Pupils equal. Conjunctiva normal. HEENT: External appearance of nose and ears normal, oral cavity grossly normal. NECK: JVD not raised; masses not palpable. HEART: First and second heart sounds are normal; no edema. LUNGS: Respiratory rate increased, accessory muscles are working less, lungs poor air entry with prolonged expiration some expiratory crackles. ABDOMEN: Soft, nontender, liver spleen not palpable, no masses palpable. PSYCH: Alert and oriented x3; mood and affect anxiousl. Investigations, reviewed in the clinical context: Sodium 131 potassium 4.9 Accu-Cheks 199, 130, 218 EKG tracing personally reviewed by me shows sinus rhythm and P pulmonale Chest x-ray film personally reviewed by me shows right middle lobe infiltrate Assessment: -Right middle lobe pneumonia, suspect gram-negative organism, slow to respond POA -Acute COPD/asthma or lab syndrome with acute exacerbation in an ex-smoker, slow to respond, POA -Acute on chronic hypoxic respiratory failure from underlying COPD and pneumonia, POA -Diabetes mellitus type 2 on oral hypoglycemic, uncontrolled with hyper glycemia -GERD -Hyperlipidemia -Essential hypertension -Chronic congestive heart failure from systolic dysfunction EF 40-45% -Severe mitral regurgitation nonrheumatic - Plan: Continue with bronchodilators IV steroids. Other medications to continue. Care was discussed the patient and family. Expect the patient to be in the hospital for another 48 hours.
[2019-04-08 20:37] LABS: Glucose,Whole Blood 231 mg/dL (75-99)
[2019-04-08] MEDS: methylPREDNISolone SOD SUCCI 40 MG/ML 1 ML VIAL IV SCH (23:38)
[2019-04-09] MEDS: MAGNESIUM SULFATE-D5W PMX 1 GM in DEXTROSE/WATER 1 100ML.BAG IVPB SCH ×2 (03:26→05:18)
[2019-04-09] MEDS: IPRATROPIUM-ALBUTEROL 3 ML NEB INHALATION SCH ×6 (04:09→23:16)
[2019-04-09 06:32] LABS: Glucose,Whole Blood 197 mg/dL (75-99)
[2019-04-09] MEDS: PANTOPRAZOLE 40 MG TABLET PO SCH (06:38)
[2019-04-09] MEDS: metFORMIN 500 MG TAB PO SCH ×2 (06:38→17:20)
[2019-04-09] MEDS: INSULIN ASPART (NovoLOG) 100 UNIT/ML VIAL SQ SCH ×4 (06:38→21:43)
[2019-04-09 07:05] LABS: Calcium 8.8 mg/dL (8.4-10.2); Potassium 5.3 mmol/L (3.5-5.1)
[2019-04-09] MEDS: BUDESONIDE 1 MG/2 ML NEBU INHALATION SCH ×2 (07:45→19:51)
[2019-04-09] MEDS: methylPREDNISolone SOD SUCCI 40 MG/ML 1 ML VIAL IV SCH ×3 (09:20→23:00)
[2019-04-09] MEDS: amLODIPine 10 MG TAB PO SCH (09:20)
[2019-04-09] MEDS: LORATADINE 10 MG TAB PO SCH (09:20)
[2019-04-09] MEDS: guaiFENesin 600 MG TABLET.ER PO SCH ×2 (09:20→21:03)
[2019-04-09] MEDS: ENOXAPARIN 40 MG/0.4 ML SYRINGE SQ SCH (09:21)
[2019-04-09] MEDS: METOPROLOL TARTRATE 25 MG TAB PO SCH ×2 (09:21→21:03)
[2019-04-09] MEDS ORDERED: LEVOFLOXACIN 750MG-D5W PMX 750 MG in DEXTROSE/WATER 1 150ML.BAG IVPB SCH (12:00)
--- NOTE | 2019-04-09 16:37 | P.PN ---
Progress Note - Text Progress Note Date: 04/09/19 Presenting complaint Short of breath wheezing Interval history: This is a 78-year-old patient who follows with Dr. Angel. Her seafood service team member is Dr. Sheehan. Admitted with COPD/asthma exacerbation and pneumonia Today-f slowly improving. Gets easily tired with walking. Cough is decreased. Appetite picking up. Sitting up in a chair. is present.. Review of systems: Was done for constitutional, cardiovascular, GI, pulmonary. relevant finding as above Active Medications Albuterol/Ipratropium (Duoneb 0.5 Mg-3 Mg/3 Ml Soln) 3 ml INHALATION RT-Q4H PRN PRN Reason: Shortness Of Breath Or Wheezing Last Admin: 04/07/19 15:09 Dose: 3 ml Documented by: Albuterol/Ipratropium (Duoneb 0.5 Mg-3 Mg/3 Ml Soln) 3 ml INHALATION RT-Q4H [facility] Last Admin: 04/09/19 15:48 Dose: 3 ml Documented by: Amlodipine Besylate (Norvasc) 10 mg PO DAILY [facility] Last Admin: 04/09/19 09:20 Dose: 10 mg Documented by: Budesonide (Pulmicort) 1 mg INHALATION RT-BID [facility] Last Admin: 04/09/19 07:45 Dose: 1 mg Documented by: Enoxaparin Sodium (Lovenox) 40 mg SQ DAILY [facility] Last Admin: 04/09/19 09:21 Dose: 40 mg Documented by: Guaifenesin (Mucinex) 1,200 mg PO Q12HR [facility] Last Admin: 04/09/19 09:20 Dose: 1,200 mg Documented by: Ceftriaxone Sodium 1 gm/ (Sodium Chloride) 50 mls @ 100 mls/hr IVPB Q24H [facility] Last Admin: 04/08/19 18:02 Dose: 100 mls/hr Documented by: Insulin Aspart (Novolog) 0 unit SQ ACHS [facility]; Protocol Last Admin: 04/09/19 13:07 Dose: Not Given Documented by: Loratadine (Claritin) 10 mg PO DAILY [facility] Last Admin: 04/09/19 09:20 Dose: 10 mg Documented by: Metformin HCl (Glucophage) 1,000 mg PO AC-BID [facility] Last Admin: 04/09/19 06:38 Dose: 1,000 mg Documented by: Methylprednisolone Sodium Succinate (Solu-Medrol) 40 mg IV Q8HR [facility] Last Admin: 04/09/19 09:20 Dose: 40 mg Documented by: Metoprolol Tartrate (Lopressor) 25 mg PO BID [facility] Last Admin: 04/09/19 09:21 Dose: 25 mg Documented by: Multivitamins (Theragran) 1 each PO DAILY@1200 [facility] Last Admin: 04/08/19 12:26 Dose: 1 each Documented by: Pantoprazole Sodium (Protonix) 40 mg PO AC-BRKFST [facility] Last Admin: 04/09/19 06:38 Dose: 40 mg Documented by: Triamcinolone Acetonide (Kenalog) 1 applic TOPICAL BID PRN PRN Reason: Rash Physical examination: VITAL SIGNS: 98.8, 107, 18, 144/69, and 93% on 4 L GENERAL: Sitting up in a chair, slightly short of breath EYES: Pupils equal. Conjunctiva normal. HEENT: External appearance of nose and ears normal, oral cavity grossly normal. NECK: JVD not raised; masses not palpable. HEART: First and second heart sounds are normal; no edema. LUNGS: Respiratory rate increased, lungs decreased breath sounds with prolonged expiration ABDOMEN: Soft, nontender, liver spleen not palpable, no masses palpable. PSYCH: Alert and oriented x3; mood and affect anxiousl. Investigations, reviewed in the clinical context: Sodium 128 potassium 5.3 bun 21 creatinine 0.84 Accu-Cheks 199, 197 EKG tracing personally reviewed by me shows sinus rhythm and P pulmonale Chest x-ray film personally reviewed by me shows right middle lobe infiltrate Assessment: -Right middle lobe pneumonia, suspect gram-negative organism, POA -Acute COPD/asthma overlap syndrome with acute exacerbation in an ex-smoker, POA -Acute on chronic hypoxic respiratory failure from underlying COPD and pneumonia, POA -Diabetes mellitus type 2 on oral hypoglycemic, uncontrolled with hyper glycemia -GERD -Hyperlipidemia -Essential hypertension -Chronic congestive heart failure from systolic dysfunction EF 40-45% -Severe mitral regurgitation nonrheumatic -Hyponatremia, suspect hypoosmolar, from decrease salt intake - Plan: We will do fluid restriction. Other medications are to continue. Continue with steroids and antibiotics. Encouraged to increase activity..
[2019-04-09 16:48] LABS: Glucose,Whole Blood 208 mg/dL (75-99)
[2019-04-09] MEDS: MULTIVITAMINS, THERA 1 EACH TAB PO SCH (17:20)
[2019-04-09 21:28] LABS: Glucose,Whole Blood 203 mg/dL (75-99)
[2019-04-10 00:23] VITALS: RESP 18
[2019-04-10] MEDS: IPRATROPIUM-ALBUTEROL 3 ML NEB INHALATION SCH ×3 (03:18→11:37)
[2019-04-10 06:44] LABS: Glucose,Whole Blood 190 mg/dL (75-99)
[2019-04-10] MEDS: INSULIN ASPART (NovoLOG) 100 UNIT/ML VIAL SQ SCH ×2 (06:51→11:46)
[2019-04-10] MEDS: PANTOPRAZOLE 40 MG TABLET PO SCH (06:52)
[2019-04-10] MEDS: metFORMIN 500 MG TAB PO SCH (06:52)
[2019-04-10 07:04] LABS: Potassium 5.4 mmol/L (3.5-5.1)
[2019-04-10] MEDS: BUDESONIDE 1 MG/2 ML NEBU INHALATION SCH (08:00)
[2019-04-10] MEDS: guaiFENesin 600 MG TABLET.ER PO SCH (08:22)
[2019-04-10] MEDS: methylPREDNISolone SOD SUCCI 40 MG/ML 1 ML VIAL IV SCH (08:22)
[2019-04-10] MEDS: LORATADINE 10 MG TAB PO SCH (08:23)
[2019-04-10] MEDS: amLODIPine 10 MG TAB PO SCH (08:23)
[2019-04-10] MEDS: METOPROLOL TARTRATE 25 MG TAB PO SCH (08:23)
[2019-04-10] MEDS: ENOXAPARIN 40 MG/0.4 ML SYRINGE SQ SCH (08:23)
[2019-04-10 11:23] LABS: Glucose,Whole Blood 119 mg/dL (75-99)
[2019-04-10] MEDS ORDERED: SODIUM POLYSTYRENE SULFONATE 15 GM/60 ML BOTTLE PO STA (11:37)
[2019-04-10] MEDS: MULTIVITAMINS, THERA 1 EACH TAB PO SCH (12:20)
[2019-04-10 12:48] VITALS: BP 137/64; PULSE 107; TEMP 98.8
--- NOTE | 2019-04-15 22:16 | P.DS ---
Providers Date of admission: 04/07/19 11:59 Expected date of discharge: 04/15/19 Attending physician: Gus Garza Primary care physician: Senthil Angel [facility] Course: Hospital course: This is a 78-year-old patient who follows with Dr. Angel. Her quarter supervisor is Dr. Sheehan. Admitted with COPD/asthma exacerbation and pneumonia Doing better by the time of discharge. His symptoms much improved. Care was discussed with the patient. Physical examination: VITAL SIGNS: 98.8, 107, 18, 137/64, 90% on 3 L GENERAL: Sitting up in a chair, feeling better EYES: Pupils equal. Conjunctiva normal. HEENT: External appearance of nose and ears normal, oral cavity grossly normal. NECK: JVD not raised; masses not palpable. HEART: First and second heart sounds are normal; no edema. LUNGS: Respiratory rate increased, lungs decreased breath sounds with prolonged expiration ABDOMEN: Soft, nontender, liver spleen not palpable, no masses palpable. PSYCH: Alert and oriented x3; mood and affect anxiousl. Investigations, reviewed in the clinical context: EKG tracing personally reviewed by me shows sinus rhythm and P pulmonale Chest x-ray film personally reviewed by me shows right middle lobe infiltrate Assessment: -Right middle lobe pneumonia, suspect gram-negative organism, POA -Acute COPD/asthma overlap syndrome with acute exacerbation in an ex-smoker, POA -Acute on chronic hypoxic respiratory failure from underlying COPD and pneumonia, POA -Diabetes mellitus type 2 on oral hypoglycemic, uncontrolled with hyper glycemia -GERD -Hyperlipidemia -Essential hypertension -Chronic congestive heart failure from systolic dysfunction EF 40-45% -Severe mitral regurgitation nonrheumatic -Hyponatremia, suspect hypoosmolar, from decrease salt intake - Disposition: Home Patient Condition at Discharge: Stable Plan - Discharge Summary Discharge Rx Participant: No New Discharge Prescriptions: New Cefuroxime Axetil [Ceftin] 500 mg PO BID 3 Days #6 tab predniSONE 10 mg PO DAILY #30 tab Continue Omeprazole [PriLOSEC] 20 mg PO AC-BRKFST Multivitamins, Thera [Multivitamin (formulary)] 1 tab PO DAILY@1200 Loratadine [Claritin] 10 mg PO DAILY metFORMIN HCL [Glucophage] 1,000 mg PO BID Cholecalciferol [Vitamin D3 (25 Mcg = 1000 Iu)] 2,000 unit PO DAILY Albuterol Inhaler [Ventolin Hfa Inhaler] 1 - 2 puff INHALATION RT-Q6H PRN PRN Reason: ASTHMA SX Triamcinolone 0.1% Cream [Kenalog 0.1% Cream] 1 applic TOPICAL BID PRN PRN Reason: Rash Furosemide [Lasix] 40 mg PO Q48H #30 tab Metoprolol Tartrate [Lopressor] 25 mg PO BID #60 tab predniSONE 5 mg PO DAILY amLODIPine [Norvasc] 10 mg PO DAILY Ipratropium-Albuterol Nebulize [Duoneb 0.5 mg-3 mg/3 ml Soln] 3 ml INHALATION RT-QID Eye Itch 1 drop BOTH EYES Q4H PRN PRN Reason: ITCHY EYES Discharge Medication List Albuterol Inhaler [Ventolin Hfa Inhaler] 1 - 2 puff INHALATION RT-Q6H PRN 09/08/15 [History] Cholecalciferol [Vitamin D3 (25 Mcg = 1000 Iu)] 2,000 unit PO DAILY 09/08/15 [History] Loratadine [Claritin] 10 mg PO DAILY 09/08/15 [History] Multivitamins, Thera [Multivitamin (formulary)] 1 tab PO DAILY@1200 09/08/15 [History] Omeprazole [PriLOSEC] 20 mg PO AC-BRKFST 09/08/15 [History] metFORMIN HCL [Glucophage] 1,000 mg PO BID 09/08/15 [History] Triamcinolone 0.1% Cream [Kenalog 0.1% Cream] 1 applic TOPICAL BID PRN 11/26/18 [History] Furosemide [Lasix] 40 mg PO Q48H #30 tab 12/02/18 [Rx] Metoprolol Tartrate [Lopressor] 25 mg PO BID #60 tab 12/02/18 [Rx] Eye Itch 1 drop BOTH EYES Q4H PRN 04/07/19 [History] Ipratropium-Albuterol Nebulize [Duoneb 0.5 mg-3 mg/3 ml Soln] 3 ml INHALATION RT-QID 04/07/19 [History] amLODIPine [Norvasc] 10 mg PO DAILY 04/07/19 [History] predniSONE 5 mg PO DAILY 04/07/19 [History] Cefuroxime Axetil [Ceftin] 500 mg PO BID 3 Days #6 tab 04/10/19 [Rx] predniSONE 10 mg PO DAILY #30 tab 04/10/19 [Rx] Follow up Appointment(s)/Referral(s): Yoav Torres DO [Doctor of Osteopathic Medicine] - 05/08/19 2:45 pm (Monday ) Senthil Angel DO [Primary Care Provider] - 04/16/19 11:00 am (Monday with Zhao GRAY) Patient Instructions/Handouts: Viral Pneumonia (DC), COPD (Chronic Obstructive Pulmonary Disease) (DC) Discharge Disposition: HOME SELF-CARE
== END 2019-04-10 15:08 | disposition home or self-care (01) | DRG 177 ==
LOC: EC 09:44 → 3SCARD 11:59
PROVIDERS: ADMIT Hospitalist; ATTEND Hospitalist
DX: J15.6 Pneumonia due to other Gram-negative bacteria (principal); J96.21 Acute and chronic respiratory failure with hypoxia; J44.1 Chronic obstructive pulmonary disease with (acute) exacerbation; J44.0 Chronic obstructive pulmonary disease with (acute) lower respiratory infection; E87.1 Hypo-osmolality and hyponatremia; I50.22 Chronic systolic (congestive) heart failure; I11.0 Hypertensive heart disease with heart failure; I34.0 Nonrheumatic mitral (valve) insufficiency; E11.9 Type 2 diabetes mellitus without complications; E78.5 Hyperlipidemia, unspecified; E83.42 Hypomagnesemia; I49.3 Ventricular premature depolarization; K21.9 Gastro-esophageal reflux disease without esophagitis; Z79.84 Long term (current) use of oral hypoglycemic drugs; Z79.899 Other long term (current) drug therapy; Z87.09 Personal history of other diseases of the respiratory system; Z87.891 Personal history of nicotine dependence; Z99.81 Dependence on supplemental oxygen; Z88.0 Allergy status to penicillin; Z88.6 Allergy status to analgesic agent; Z91.030 Bee allergy status; Z91.040 Latex allergy status; Z80.9 Family history of malignant neoplasm, unspecified; Z98.890 Other specified postprocedural states
CPT/HCPCS: 36415; 71046; 80048; 80053; 83605; 83735; 83880; 84484; 85025; 85610; 85730; 87040; 87070; 87077; 87186; 87205; 93005; 94640; 94644; 94760; 96365; 96375; 99291

== ENCOUNTER → 2021-01-25 | Outpatient (CLI) | payer MEDICARE ==
--- NOTE | 2021-01-25 09:54 | BD ---
EXAMINATION TYPE: Axial Bone Density DATE OF EXAM: 01/25/2021 COMPARISON: 11/08/2018 CLINICAL HISTORY: Height: 58 IN Weight: 158 LBS FRAX RISK QUESTIONS: Glucocorticoids (More than 3mos): YES 5 MG/DAY X 2 YEARS (Ex: prednisone, prednisolone, methylprednisolone, dexamethasone, and hydrocortisone). RISK FACTORS HISTORY OF: Active: LIMITED Diet low in dairy products/other sources of calcium: YES Postmenopausal woman: AGE 50 MEDICATIONS: Prednisone or other steroids: PREDNISONE 5 MG /DAY How Lon YEARS Additional Medications: CALCIUM, VIT D, PREDNISONE 5 MG/DAY, METFORMIN, METOPROLOL, AMLODIPINE, LOSAR RASMUSSEN, EZKTIMIBE,LOVASTATIN, OMEPRAZOLE, TRELEGY, VENTOLIN, FUROSEMIDE,CINNAMON, RED YEAST RICE, VIT E, MAGNESIUM EXAM MEASUREMENTS: Bone mineral densitometry was performed using the [employer] System. Bone mineral density as measured about the Lumbar spine is: ----- L1-L4(G/cm2): 1.205 T Score Values are as follows: ----- L2: -1.0 ----- L3: -0.6 ----- L4: 2.4 ----- L1-L4: 0.2 Bone mineral density has: Decreased -8.2% since study of: 11/08/2018 Bone mineral density about the R hip (g/cm2): 0.885 Bone mineral density about the L hip (g/cm2): 0.796 T Score values are as follows: -----R Neck: -1.1 -----L Neck: -1.7 -----R Total: -0.6 -----L Total: -1.0 Bone mineral density has: Decreased -6.5% since study of: 11/08/2018 IMPRESSION: Osteopenia (T Score between -2.5 and -1). There is slightly increased risk of fracture and the patient may be considered for treatment. Re-Screen 2-5 years. NOTE: T-SCORE=SD OF THE YOUNG ADULT MEAN.
--- NOTE | 2021-01-27 10:49 | P.ARTDOP ---
Arterial Doppler LOWER EXTREMITY ARTERIAL DOPPLER: DATE OF SERVICE: 01/25/2021 Reason for study: Decreased pulses. Doppler waveforms: Multiphasic bilaterally throughout. Pulse volume recording: []. Pressure gradients: None. Ankle-brachial indices: Greater than 1 bilaterally. Toe brachial indices: 0.61 on the right, 0.64 on the left Impression: Normal study.
== END | disposition home or self-care (01) ==
LOC: RADUSWWP 08:07
PROVIDERS: ATTEND Family Medicine
DX: M85.89 Other specified disorders of bone density and structure, multiple sites (principal); R09.89 Other specified symptoms and signs involving the circulatory and respiratory systems; Z78.0 Asymptomatic menopausal state
CPT/HCPCS: 77080; 93922; 93923

== ENCOUNTER → 2023-10-10 | Outpatient (CLI) | payer MEDICARE ==
--- NOTE | 2023-10-11 18:26 | BD ---
EXAMINATION TYPE: Axial Bone Density DATE OF EXAM: 10/10/2023 CLINICAL HISTORY: 83 years old Female. ICD-10 CODE: M81.0 AGE RELATED OSTEOPOROSIS Height: 58 Weight: 141.4 FRAX RISK QUESTIONS: Alcohol (3 or more units per day): no Family History (Parent hip fracture): no Glucocorticoids (More than 3mos): prednisone for COPD History of Fracture in Adulthood: no Secondary Osteoporosis: 1. Type 1 Diabetes: no 2. Hyperthyroidism: no 3. Menopause before 45: no 4. Malnutrition: no 5. Chronic liver disease: no Rheumatoid Arthritis: no Current Tobacco Use: no RISK FACTORS HISTORY OF: Hip Fracture (Right/Left): no Spine Fracture: no History of Wrist Fracture: no Surgery to Spine/Hip(right/left)/Wrist (right/left): no Family History of Osteoporosis: no Active: no Diet low in dairy products/other sources of calcium: no Postmenopausal woman: yes Take estrogen and/or progesterone medications: no Lost more than 2 inches in height since high school: yes Frequent falls: n o Poor Health: no Hyperparathyroidism: no Adrenal Insufficiency: no MEDICATIONS: Prednisone or other steroids: yes How Long: past 3 years Thyroid Medications: no Osteoporosis Medications: fosamax How Long: weekly past 3 years Additional Medications: BP Meds, Metformin, Inhaler, Cholesterol, Vit D, Calcium, Reflux meds, Additional History: EXAM MEASUREMENTS: Bone mineral densitometry was performed using the [employer] System. Bone mineral density as measured about the Lumbar spine is: ----- L1-L4(G/cm2): 1.204 T Score Values are as follows: ----- L1: -1.1 ----- L2: -0.6 ----- L3: -0.5 ----- L4: 2.4 ----- L1-L4: 0.2 Z Score Values are as follows: ----- L1: 0.8 ----- L2: 1.3 ----- L3: 1.4 ----- L4: 4.4 ----- L1-L4: 2.1 Bone mineral density has: decreased -0.1 % since study of: 01/25/2021 Bone mineral density about the R hip (g/cm2): 1.0210 Bone mineral density about the L hip (g/cm2): 0.889 T Score values are as follows: -----R Neck: -0.6 -----L Neck: -1.7 -----R Total: 0.1 -----L Total: -0.9q Z Score values are as follows: -----R Neck: 1.6 -----L Neck: 0.6 -----R Total: 2.3 -----L Total: 1.2 Bone mineral density has: increased 5.2 % since study of: 01/25/2021 FRAX%s: The graph provided illustrates a 20.7% chance for a major osteoporotic fx and a 6.5% chance f or the hips probability for fx in 10 years time. IMPRESSION: Osteopenia (T Score between -2.5 and -1). There is slightly increased risk of fracture and the patient may be considered for treatment. Re-Screen 2-5 years. NOTE: T-SCORE=SD OF THE YOUNG ADULT MEAN.
== END | disposition home or self-care (01) ==
LOC: RADBDWWP 13:14
PROVIDERS: ATTEND Family Medicine
DX: M81.0 Age-related osteoporosis without current pathological fracture (principal); M85.89 Other specified disorders of bone density and structure, multiple sites
CPT/HCPCS: 77080

== ENCOUNTER 2024-02-21 13:18 | Inpatient (IN) | payer MEDICARE ==
--- NOTE | 2024-02-21 14:33 | ED ---
General Adult HPI - General Chief complaint: Shortness of Breath Stated complaint: SOB-Sent by PCP Time Seen by Provider: 02/21/24 14:05 Source: patient, family, RN notes reviewed Mode of arrival: wheelchair Limitations: no limitations - History of Present Illness Initial comments: 83-year-old female presents emergency department from PCPs office with chief complaint of shortness of breath. She states she has been having increasing dyspnea over the last 1 week. She states it is with exertion. She does have COPD she is oxygen dependent but states that she has no relief with her inhalers or oxygen. She denies any productive cough denies any nausea vomiting no chest pain she states she does see Dr. Martell pulmonology in which she used to be on u pdrafts but states that she was discontinued. Denies any leg pain no leg swelling - Related Data Home Medications Medication Instructions Recorded Confirmed Albuterol Inhaler [Ventolin Hfa 1 - 2 puff INHALATION RT-Q6H PRN 09/08/15 04/07/19 Inhaler] Cholecalciferol [Vitamin D3 (25 2,000 unit PO DAILY 09/08/15 04/07/19 Mcg = 1000 Iu)] Loratadine [Claritin] 10 mg PO DAILY 09/08/15 04/07/19 Multivitamins, Thera [Multivitamin 1 tab PO DAILY@1200 09/08/15 04/07/19 (formulary)] Omeprazole [PriLOSEC] 20 mg PO AC-BRKFST 09/08/15 04/07/19 metFORMIN HCL [Glucophage] 1,000 mg PO BID 09/08/15 04/07/19 Triamcinolone 0.1% Cream [Kenalog 1 applic TOPICAL BID PRN 11/26/18 04/07/19 0.1% Cream] Eye Itch 1 drop BOTH EYES Q4H PRN 04/07/19 04/07/19 Ipratropium-Albuterol Nebulize 3 ml INHALATION RT-QID 04/07/19 04/07/19 [Duoneb 0.5 mg-3 mg/3 ml Soln] amLODIPine [Norvasc] 10 mg PO DAILY 04/07/19 04/07/19 predniSONE 5 mg PO DAILY 04/07/19 04/07/19 Previous Rx's Medication Instructions Recorded Furosemide [Lasix] 40 mg PO Q48H #30 tab 12/02/18 Metoprolol Tartrate [Lopressor] 25 mg PO BID #60 tab 12/02/18 cefUROXime axetiL [Ceftin] 500 mg PO BID 3 Days #6 tab 04/10/19 predniSONE 10 mg PO DAILY #30 tab 04/10/19 Allergies Allergy/AdvReac Type Severity Reaction Status Date / Time aspirin Allergy Rash/Hives Verified 04/07/19 10:37 latex Allergy Rash/Hives Verified 04/07/19 10:37 Penicillins Allergy Unknown Verified 04/07/19 10:37 Childhood venom-honey bee Allergy Dyspnea, Verified 04/07/19 10:37 [bee venom (honey bee)] HIVES Review of Systems ROS Statement: Those systems with pertinent positive or pertinent negative responses have been documented in the HPI. ROS Other: All systems not noted in ROS Statement are negative. Past Medical History Past Medical History: Asthma, COPD, Diabetes Mellitus, Eye Disorder, GERD/ Reflux, Hyperlipidemia, Hypertension Additional Past Medical History / Comment(s): leaking heart valve History of Any Multi-Drug Resistant Organisms: None Reported Past Surgical History: Breast Surgery Additional Past Surgical History / Comment(s): EXC LT BREAST LUMP. COLONOSCOPY, EGD. Past Anesthesia/Blood Transfusion Reactions: No Reported Reaction Past Psychological History: No Psychological Hx Reported Smoking Status: Former smoker Past Alcohol Use History: None Reported Past Drug Use History: None Reported - Past Family History Mother Sister(s) Family Medical History: Cancer General Exam Limitations: no limitations General appearance: alert, in no apparent distress Head exam: Present: atraumatic, normocephalic, normal inspection Eye exam: Present: normal appearance, PERRL, EOMI. Absent: scleral icterus, conjunctival injection, periorbital swelling ENT exam: Present: normal exam, normal oropharynx, mucous membranes moist Neck exam: Present: normal inspection. Absent: tenderness, meningismus, lymphadenopathy Respiratory exam: Present: wheezes, decreased breath sounds. Absent: normal lung sounds bilaterally, respiratory distress, rales, rhonchi, stridor Cardiovascular Exam: Present: regular rate, normal rhythm, normal heart sounds. Absent: systolic murmur, diastolic murmur, rubs, gallop, clicks GI/Abdominal exam: Present: soft, normal bowel sounds. Absent: distended, tenderness, guarding, rebound, rigid Course Vital Signs 02/21/24 02/21/24 13:26 14:25 Temperature 98.0 F Pulse Rate 80 80 Respiratory 20 20 Rate Blood Pressure 129/82 130/82 O2 Sat by Pulse 88 L 93 L Oximetry EKG Findings - EKG Comments: EKG Findings:: EKG performed at 14: 53 sinus rhythm right bundle with diffuse inverted T waves rate of 82 [place] 167 QRS 158 QT/QTc 424/463 - EKG Results: EKG: interpreted by CATIE Medical Decision Making - Medical Decision Making Was pt. sent in by a medical professional or institution (, PA, HEARING SCREENER, urgent care, hospital, or care home...) When possible be specific @ -No Did you speak to anyone other than the patient for history (EMS, parent, family, police, friend...)? What history was obtained from this source @ -No Did you review nursing and triage notes (agree or disagree)? Why? @ -I reviewed and agree with nursing and triage notes Were old charts reviewed (outside hosp., previous admission, EMS record, old EKG, old radiological studies, urgent care reports/EKG's, care home records)? Report findings @ -No old charts were reviewed Differential Diagnosis (chest pain, altered mental status, abdominal pain women, abdominal pain men, vaginal bleeding, weakness, fever, dyspnea, syncope, headache, dizziness, GI bleed, back pain, seizure, CVA, palpatations, mental health, musculoskeletal)? @ -Differential Dyspnea: Coronary syndrome, arrhythmia, tamponade, asthma, COPD, pulmonary embolism, pneumonia, pneumothorax, pulmonary effusion, anaphylaxis, diabetic ketoacidosis, flailed chest, pulmonary contusion, diaphragmatic rupture, anemia, neuromuscular, this is not meant to be an all-inclusive list. EKG interpreted by me (3pts min.). @ -As above X-rays interpreted by me (1pt min.). @ -Chest x-ray shows plate flat like atelectasis, chronic changes CT interpreted by me (1pt min.). @ -None done U/S interpreted by me (1pt. min.). @ -None done What testing was considered but not performed or refused? (CT, X-rays, U/S, labs)? Why? @ -None What meds were considered but not given or refused? Why? @ -None Did you discuss the management of the patient with other professionals (professionals i.e. , PA, HEARING SCREENER, lab, RT, psych nurse, social economist, nitroglycerin neutralizer, teacher, restoration officer, porter sample case)? Give summary @ -[facility] for admission for pulmonary evaluation, nuclear med pulmonary ventilation study for possible PE Was smoking cessation discussed for >3mins.? @ -No Was critical care preformed (if so, how long)? @ -No Were there social determinants of health that impacted care today? How? (Homelessness, low income, unemployed, alcoholism, drug addiction, transportation, low edu. Level, literacy, decrease access to med. care, fci, rehab)? @ -No Was there de-escalation of care discussed even if they declined (Discuss DNR or withdrawal of care, Hospice)? DNR status @ -No What co-morbidities impacted this encounter? (DM, HTN, Smoking, COPD, CAD, Cancer, CVA, ARF, Chemo, Hep., AIDS, mental health diagnosis, sleep apnea, morbid obesity)? @ -COPD Was patient admitted / discharged? Hospital course, mention meds given and route, prescriptions, significant lab abnormalities, going to OR and other pertinent info. @ -Admitted patient is found to have elevated D-dimer, hypoxia respiratory failure. Patient was given breathing treatments, steroids patient does not have evidence of infection. Patient was not started on antibiotics at this time. Patient will require nuclear med study as she has acute kidney injury and cannot undergo CT PE study. Patient has hypomagnesemia started on IV replacement. Patient has hyponatremia started IV fluids. Patient was started on high-dose heparin secondary to elevated D-dimer and concern for PE Undiagnosed new problem with uncertain prognosis? @ -No Drug Therapy requiring intensive monitoring for toxicity (Heparin, Nitro, Insulin, Cardizem)? @ -Heparin Were any procedures done? @ -No Diagnosis/symptom? @ -Hyponatremia, hypomagnesemia, acute hypoxemic respiratory failure, COPD Acute, or Chronic, or Acute on Chronic? @ -Acute Uncomplicated (without systemic symptoms) or Complicated (systemic symptoms)? @ -Complicated Side effects of treatment? @ -No Exacerbation, Progression, or Severe Exacerbation? @ -No Poses a threat to life or bodily function? How? (Chest pain, USA, HI, pneumonia, PE, COPD, DKA, ARF, appy, cholecystitis, CVA, Diverticulitis, Homicidal, Suicidal, threat to staff... and all critical care pts) @ -[Yes possible respiratory failure - Lab Data Result diagrams: 02/21/24 14:35 02/21/24 14:35 Lab Results 02/21/24 02/21/24 02/21/24 Range/Units 14:35 14:35 14:35 WBC 5.9 (3.8-10.6) k/uL RBC 4.05 (3.80-5.40) m/uL Hgb 11.6 (11.4-16.0) gm/dL Hct 36.2 (34.0-46.0) % MCV 89.5 (80.0-100.0) fL MCH 28.6 (25.0-35.0) pg MCHC 32.0 (31.0-37.0) g/dL RDW 14.3 (11.5-15.5) % Plt Count 261 (150-450) k/uL MPV 7.5 Neutrophils % 81 % Lymphocytes % 11 % Monocytes % 6 % Eosinophils % 1 % Basophils % 0 % Neutrophils # 4.8 (1.3-7.7) k/uL Lymphocytes # 0.7 L (1.0-4.8) k/uL Monocytes # 0.4 (0-1.0) k/uL Eosinophils # 0.0 (0-0.7) k/uL Basophils # 0.0 (0-0.2) k/uL PT 12.7 H (10.0-12.5) sec INR 1.2 H (<1.2) APTT 23.6 (22.0-30.0) sec D-Dimer 1.52 H (<0.60) mg/L FEU Sodium 123 L (137-145) mmol/L Potassium 5.6 H (3.5-5.1) mmol/L Chloride 91 L (98-107) mmol/L Carbon Dioxide 22 (22-30) mmol/L Anion Gap 10 mmol/L BUN 39 H (7-17) mg/dL Creatinine 1.72 H (0.52-1.04) mg/dL Est GFR (CKD-EPI)AfAm 32 (>60 ml/min/1.73 sqM) Est GFR (CKD-EPI)NonAf 27 (>60 ml/min/1.73 sqM) Glucose 152 H (74-99) mg/dL Plasma Lactic Acid Raymundo (0.7-2.0) mmol/L Calcium 9.3 (8.4-10.2) mg/dL Magnesium 1.2 L (1.6-2.3) mg/dL Total Bilirubin 0.6 (0.2-1.3) mg/dL AST 84 H (14-36) U/L ALT 91 H (4-34) U/L Alkaline Phosphatase 92 (38-126) U/L Troponin I (0.000-0.034) ng/mL Total Protein 6.5 (6.3-8.2) g/dL Albumin 4.3 (3.5-5.0) g/dL 02/21/24 02/21/24 Range/Units 14:35 14:35 WBC (3.8-10.6) k/uL RBC (3.80-5.40) m/uL Hgb (11.4-16.0) gm/dL Hct (34.0-46.0) % MCV (80.0-100.0) fL MCH (25.0-35.0) pg MCHC (31.0-37.0) g/dL RDW (11.5-15.5) % Plt Count (150-450) k/uL MPV Neutrophils % % Lymphocytes % % Monocytes % % Eosinophils % % Basophils % % Neutrophils # (1.3-7.7) k/uL Lymphocytes # (1.0-4.8) k/uL Monocytes # (0-1.0) k/uL Eosinophils # (0-0.7) k/uL Basophils # (0-0.2) k/uL PT (10.0-12.5) sec INR (<1.2) APTT (22.0-30.0) sec D-Dimer (<0.60) mg/L FEU Sodium (137-145) mmol/L Potassium (3.5-5.1) mmol/L Chloride (98-107) mmol/L Carbon Dioxide (22-30) mmol/L Anion Gap mmol/L BUN (7-17) mg/dL Creatinine (0.52-1.04) mg/dL Est GFR (CKD-EPI)AfAm (>60 ml/min/1.73 sqM) Est GFR (CKD-EPI)NonAf (>60 ml/min/1.73 sqM) Glucose (74-99) mg/dL Plasma Lactic Acid Raymundo 1.5 (0.7-2.0) mmol/L Calcium (8.4-10.2) mg/dL Magnesium (1.6-2.3) mg/dL Total Bilirubin (0.2-1.3) mg/dL AST (14-36) U/L ALT (4-34) U/L Alkaline Phosphatase (38-126) U/L Troponin I <0.012 (0.000-0.034) ng/mL Total Protein (6.3-8.2) g/dL Albumin (3.5-5.0) g/dL Disposition Clinical Impression: COPD (chronic obstructive pulmonary disease), Acute respiratory failure with hypoxia, Hypomagnesemia Disposition: ADMITTED IP TO THIS [facility] Condition: Serious Referrals: Senthil Angel DO [Primary Care Provider] - 1-2 days Time of Disposition: 15:29
[2024-02-21 14:44] LABS: Basophils % (A) 0 %; Eosinophils % (A) 1 %; HCT 36.2 % (34.0-46.0); HGB 11.6 gm/dL (11.4-16.0); Lymphocytes # (A) 0.7 k/uL (1.0-4.8); Lymphocytes % (A) 11 %; MCH 28.6 pg (25.0-35.0); MCV 89.5 fL (80.0-100.0); Mean Platelet Volume 7.5; Monocytes # (A) 0.4 k/uL (0-1.0); Monocytes % (A) 6 %; Neutrophils # (A) 4.8 k/uL (1.3-7.7); Neutrophils % (A) 81 %; Platelet Count 261 k/uL (150-450); RBC 4.05 m/uL (3.80-5.40); RDW 14.3 % (11.5-15.5); WBC 5.9 k/uL (3.8-10.6)
[2024-02-21 14:57] LABS: INR 1.2 (<1.2); Partial Thromboplastin Time 23.6 sec (22.0-30.0); Prothrombin Time 12.7 sec (10.0-12.5)
[2024-02-21] MEDS: methylPREDNISolone SOD SUCCI 125 MG/2 ML VIAL IV STA (14:58)
[2024-02-21 15:08] LABS: ALT 91 U/L (4-34); AST 84 U/L (14-36); African American GFR (CKD) 32 (>60 ml/min/1.73 sqM); Albumin 4.3 g/dL (3.5-5.0); Alkaline Phosphatase 92 U/L (38-126); Anion Gap 10 mmol/L; Blood Urea Nitrogen 39 mg/dL (7-17); Calcium 9.3 mg/dL (8.4-10.2); Carbon Dioxide 22 mmol/L (22-30); Chloride 91 mmol/L (98-107); Glucose 152 mg/dL (74-99); Magnesium 1.2 mg/dL (1.6-2.3); Non-African American GFR(CKD) 27 (>60 ml/min/1.73 sqM); Potassium 5.6 mmol/L (3.5-5.1); Sodium 123 mmol/L (137-145); Total Bilirubin 0.6 mg/dL (0.2-1.3); Total Protein 6.5 g/dL (6.3-8.2)
--- NOTE | 2024-02-21 15:15 | XR ---
EXAMINATION TYPE: XR chest 2V DATE OF EXAM: 02/21/2024 COMPARISON: 04/07/2019 HISTORY: 83-year-old female shortness of breath, difficulty breathing, hypoxia TECHNIQUE: AP and lateral views FINDINGS: Heart is moderately enlarged. Focal right midlung opacity. Patchy left midlung opacity. Appearance of trace effusions on the lateral view. IMPRESSION: Moderate cardiomegaly with focal midlung opacities, right greater than left. Trace effusions. Conside r multifocal pneumonia or sequela of CHF. Follow-up after treatment to ensure clearance and exclude a n underlying mass.
[2024-02-21] MEDS: IPRATROPIUM-ALBUTEROL 3 ML NEB INHALATION STA (15:17)
[2024-02-21] MEDS ORDERED: HEPARIN SODIUM 1,000 UN/ML (10ML VL) IV PRN (15:19)
[2024-02-21] MEDS ORDERED: IPRATROPIUM-ALBUTEROL 3 ML NEB INHALATION PRN (15:40)
[2024-02-21] MEDS: SODIUM CHLORIDE 0.9% 1,000 ML IV SCH (15:47)
[2024-02-21] MEDS: MAGNESIUM SULFATE-D5W PMX 1 GM in DEXTROSE/WATER 1 100ML.BAG IVPB SCH (15:47)
[2024-02-21] MEDS: SODIUM CHLORIDE 0.9% 500 ML 500 ML IV ONE (15:48)
[2024-02-21 16:01] LABS: NT-Pro-B-Type Natriuretic Pept 42100 pg/mL
[2024-02-21] MEDS: HEPARIN SODIUM 1,000 UN/ML (10ML VL) IV ONE (16:58)
[2024-02-21] MEDS: HEPARIN SOD,PORK IN 0.45% NACL 25,000 UNIT in 0.45% NACL 1 250ML.BAG IV SCH (17:05)
[2024-02-21] MEDS: AZITHROMYCIN 500 MG in SODIUM CHLORIDE 0.9% 250 ML IVPB STA (19:01)
[2024-02-21] MEDS: IPRATROPIUM-ALBUTEROL 3 ML NEB INHALATION SCH (20:28)
[2024-02-21] MEDS: methylPREDNISolone SOD SUCCI 125 MG/2 ML VIAL IV SCH (21:10)
[2024-02-21 21:25] LABS: Glucose,Whole Blood 267 mg/dL (70-110)
[2024-02-21] MEDS: INSULIN ASPART (NovoLOG) 100 UNIT/ML VIAL SQ SCH (23:01)
[2024-02-22] MEDS: FUROSEMIDE 10 MG/ML 4 ML VIAL IV STA (01:16)
[2024-02-22 06:27] LABS: Glucose,Whole Blood 216 mg/dL (70-110)
--- NOTE | 2024-02-22 07:22 | P.CNPUL ---
History of Present Illness Consult date: 02/22/24 Requesting physician: Hany Simpson Reason for consult: dyspnea, hypoxemia Chief complaint: Progressively worsening shortness of breath that started over the weekend History of present illness: Patient is an 83-year-old female with past medical history significant for asthma/COPD, valvular heart disease, hyperlipidemia, hypertension, diabetes mellitus, and former tobacco smoker. Her primary care provider is Dr. Brittani Angel. She does follow in the pulmonary office with Dr. Rebollar for management of her moderate COPD. She has an FEV1 52% of predicted. She has a remote smoking history, quitting over 25 years ago. She is chronically oxygen dependent on 2 to 3 L at home. She is on Trelegy maintenance inhaler, albuterol nebs, as well as PRN albuterol rescue inhaler. She was just recently up [place] with her adult children, in the [place] area, approximately 2-hour drive from home. She states that she was severely more short of breath than her baseline dyspnea. States she could not walk more than a couple feet without troubles breathing. At that time, her chest felt tight and she had associated wheezing. Denies any fevers. Denies any cough or sputum production. Denies any hemoptysis. Denies any chest pain. She finally went to be evaluated by her primary care provider, was noted to be hypoxic in the office, and directed to the emergency room yesterday afternoon for evaluation. Chest x-ray on arrival demonstrated moderate cardiomegaly with focal midlung opacities right greater than left, which appeared to be chronic findings when compared to previous imaging. There are also new trace bilateral pleural effusions. NT proBNP was elevated at 42,000 on arrival. She does take Lasix 40 mg daily outpatient, and has not missed any doses. She is known to have severe valvular heart disease. Most recent available echocardiogram demonstrated a mild to moderately impaired left ventricular ejection fraction estimated at 40 to 45%. There was severe mitral regurgitation and mild aortic regurgitation. While in the emergency room, patient was started on IV heparin infusion per protocol. Her D-dimer was elevated at 1.52. Patient denies any lower extremity swelling or history of DVT. Denies any personal or familial history of any sort of blood clots. No recent surgical history or trauma. The patient is denies any chest pain, lightheadedness, or syncopal events. Current heart rhythm is normal sinus averaging around 90 to 100 bpm. She has apparently sustained acute kidney injury, and is unable to undergo chest CT angio protocol. Labs consist of a unremarkable CBC. No leukocytosis. BMP on arrival: Sodium 123, potassium 5.6, chloride 91, serum bicarb 22, BUN 39, creatinine 1.72, glucose 152. LFTs mildly elevated. EKG shows sinus rhythm with a right bundle branch block and T wave inversion in the anterior and inferior leads. Troponins negative x 3. She currently remains in the emergency department, room 18. She is resting comfortably on the stretcher. She is on 6 L/min nasal cannula, SpO2 is 91%. Blood pressure is normotensive. Heart rate is 92 bpm. She is waiting for a bed on the cardiac stepdown unit. Review of Systems REVIEW OF SYSTEMS: CONSTITUTIONAL: Denies any recent significant weight loss or weight gain. EYES: Denies change in vision. EARS, NOSE, MOUTH, THROAT: Denies headaches, denies sore throat. CARDIOVASCULAR: Denies chest pain, palpitations or syncopal episodes. RESPIRATORY: See HPI GASTROINTESTINAL: Denies change in appetite, abdominal pain, nausea and vomiting, or diarrhea GENITOURINARY: Denies hematuria, denies infections. MUSKULOSKELETAL: Denies pain, denies swelling. INTEGUMENTARY: Denies rash, denies eczema. NEUROLOGICAL: Denies recent memory loss, no recent seizure activity. PSYCHIATRIC: Denies anxiety, denies depression. HEMATOLOGIC/LYMPHATIC: Denies anemia, denies enlarged lymph node Past Medical History Past Medical History: Asthma, COPD, Diabetes Mellitus, Eye Disorder, GERD/Reflux, Hyperlipidemia, Hypertension Additional Past Medical History / Comment(s): leaking heart valve History of Any Multi-Drug Resistant Organisms: None Reported Past Surgical History: Breast Surgery Additional Past Surgical History / Comment(s): EXC LT BREAST LUMP. COLONOSCOPY, EGD. Past Anesthesia/Blood Transfusion Reactions: No Reported Reaction Past Psychological History: No Psychological Hx Reported Smoking Status: Former smoker Past Alcohol Use History: None Reported Additional Past Alcohol Use History / Comment(s): (SMOKED [id number] EST) Past Drug Use History: None Reported - Past Family History Mother Sister(s) Family Medical History: Cancer Medications and Allergies Home Medications Medication Instructions Recorded Confirmed Type Albuterol Inhaler [Ventolin Hfa 1 - 2 puff INHALATION RT-Q6H PRN 09/08/15 02/21/24 History Inhaler] Multivitamins, Thera [Multivitamin 1 tab PO DAILY 09/08/15 02/21/24 History (formulary)] Omeprazole [PriLOSEC] 20 mg PO DAILY 09/08/15 02/21/24 History metFORMIN HCL [Glucophage] 1,000 mg PO BID 09/08/15 02/21/24 History Furosemide [Lasix] 40 mg PO Q48H #30 tab 12/02/18 02/21/24 Rx amLODIPine [Norvasc] 5 mg PO DAILY 04/07/19 02/21/24 History predniSONE 5 mg PO DAILY 04/07/19 02/21/24 History Albuterol Nebulized [Ventolin 2.5 mg INHALATION RT-QID 02/21/24 02/21/24 History Nebulized] Alendronate Sodium 70 mg PO MO 02/21/24 02/21/24 History Calcium Carbonate [Calcium] 1,200 mg PO DAILY 02/21/24 02/21/24 History Cholecalciferol (Vitamin D3) 50 mcg PO DAILY 02/21/24 02/21/24 History [Vitamin D3 (50 Mcg = 2000 Iu)] Cyanocobalamin (Vitamin B-12) 1,000 mcg PO DAILY 02/21/24 02/21/24 History [Vitamin B-12] Eye Itch Relief Drops 1 drop BOTH EYES Q4HR PRN 02/21/24 02/21/24 History Ezetimibe [Zetia] 10 mg PO DAILY 02/21/24 02/21/24 History Fluticasone/Umeclidin/Vilanter 1 puff INHALATION RT-DAILY 02/21/24 02/21/24 History [Trelegy Ellipta 100-62.5-25] Ipratropium Nebulized [Atrovent 0.5 mg INHALATION RT-QID 02/21/24 02/21/24 History Nebulized 0.2 MG/ML] Losartan [Cozaar] 50 mg PO DAILY 02/21/24 02/21/24 History Lovastatin [Mevacor] 80 mg PO HS 02/21/24 02/21/24 History Ubidecarenone [Coenzyme Q10] 200 mg PO DAILY 02/21/24 02/21/24 History Vitamin E (Dl,Tocopheryl Acet) 450 mg PO DAILY 02/21/24 02/21/24 History [Vitamin E (1000 Iu = 450 MG)] Allergies Allergy/AdvReac Type Severity Reaction Status Date / Time aspirin Allergy Rash/Hives Verified 02/21/24 15:55 latex Allergy Rash/Hives Verified 02/21/24 15:55 Penicillins Allergy Unknown Verified 02/21/24 15:55 Childhood venom-honey bee Allergy Dyspnea, Verified 02/21/24 15:55 [bee venom (honey bee)] HIVES Physical Exam Vitals: Vital Signs Temp Pulse Pulse Resp BP BP Pulse Ox 02/22/24 03:32 102 H 02/22/24 03:21 92 02/22/24 00:00 98.5 F 94 22 128/66 91 L 02/21/24 23:52 96 02/21/24 23:43 97 02/21/24 20:37 99 02/21/24 20:31 98 92 L 02/21/24 20:00 98.5 F 101 H 22 145/87 91 L 02/21/24 19:00 102 H 22 141/99 88 L 02/21/24 18:22 87 L 02/21/24 18:19 98.0 F 93 22 121/65 84 L 02/21/24 15:37 82 02/21/24 15:19 81 02/21/24 14:25 98.0 F 80 20 130/82 93 L 02/21/24 13:26 80 20 129/82 88 L Intake and Output 02/21/24 02/21/24 02/22/24 14:59 22:59 06:59 Other: Weight 62.142 kg 62.142 kg GENERAL EXAM: Alert, 83-year-old white female, comfortable in no apparent distress. HEAD: Normocephalic and atraumatic EYES: Normal reaction of pupils, equal size. NOSE: Clear with pink turbinates. THROAT: No erythema or exudates. NECK: No masses, no JVD. CHEST: No chest wall deformity. LUNGS: Equal air entry with scattered wheezes and rhonchi heard bilaterally, and inspiratory left basilar crackles. On 6 L/min nasal cannula. SpO2 91%. No conversational dyspnea or accessory muscle use.. CVS: S1 and S2 normal with no audible murmur, regular rhythm. No extra heart sounds ABDOMEN: No hepatosplenomegaly, active bowel sounds, no guarding or rigidity. SPINE: No scoliosis or deformity SKIN: No rashes CENTRAL NERVOUS SYSTEM: No focal deficits, tone is normal in all 4 extremities. EXTREMITIES: There is no peripheral edema, clubbing, or cyanosis. Peripheral pulses are intact. Results - Laboratory Findings CBC and BMP: 02/21/24 14:35 02/21/24 14:35 PT/INR, D-dimer PT 12.7 sec (10.0-12.5) H 02/21/24 14:35 INR 1.2 (<1.2) H 02/21/24 14:35 D-Dimer 1.52 mg/L FEU (<0.60) H 02/21/24 14:35 Abnormal lab findings: Abnormal Labs 02/21/24 02/21/24 02/21/24 14:35 14:35 14:35 Lymphocytes # 0.7 L PT 12.7 H INR 1.2 H APTT D-Dimer 1.52 H Sodium 123 L Potassium 5.6 H Chloride 91 L BUN 39 H Creatinine 1.72 H Glucose 152 H POC Glucose (mg/dL) Magnesium 1.2 L AST 84 H ALT 91 H 02/21/24 02/21/24 21:24 22:30 Lymphocytes # PT INR APTT 70.9 H D-Dimer Sodium Potassium Chloride BUN Creatinine Glucose POC Glucose (mg/dL) 267 H Magnesium AST ALT - Diagnostic Findings Chest x-ray: image reviewed Assessment and Plan Assessment: Acute on chronic hypoxemic respiratory failure, possibly secondary to a combination of acute asthma/COPD exacerbation and severe valvular heart disease. Chest x-ray findings demonstrate moderate cardiomegaly, with focal midlung opacities right greater than left, which may be chronic areas of parenchymal scarring or atelectasis. There are new trace bilateral pleural effusions. NT proBNP significantly elevated at 42,100. Clinically, doubt pulmonary embolism. D-dimer was elevated in the emergency room, and patient was started on high intensity IV heparin protocol. Patient has sustained an acute kidney injury, and is unable to undergo CT angio protocol. There is a follow-up VQ scan ordered. Moderate oxygen dependent chronic obstructive pulmonary disease, with an FEV1 52% of predicted. Normally maintained on Trelegy maintenance inhaler, albuterol nebs, as well as as needed albuterol rescue inhaler. Chronic hypoxemic respiratory failure, secondary to above, normally maintained on 2 to 3 L/min nasal cannula. Valvular heart disease, including severe mitral regurgitation and mild aortic regurgitation Acute kidney injury, creatinine 1.72 Hyperkalemia, secondary to above Chronic hyponatremia Diabetes mellitus type 2, [id number] Remote history of tobacco dependence Plan: Patient's medications, labs, chest x-ray reviewed. Currently on 6 L/min nasal cannula, continue supplemental oxygen to maintain oxygen saturation of 90% or greater Patient was empirically started on high intensity heparin protocol in the emergency room. Clinically, pulmonary embolism is felt to be less likely. D- dimer was elevated at 1.52. Unable to undergo chest CT angio protocol due to renal function. VQ scan is pending for later this morning. Start patient on a combination on DuoNebs [id number], Symbicort inhaler, and IV Solu-Medrol Give dose of Lasix 40 mg once now Follow-up transthoracic echocardiogram is pending Patient did receive doses antibiotics in the emergency room, which are essentially empiric Check procalcitonin level IV maintenance fluids have been ordered. Repeat labs in the morning Will continue to follow, and further recommendations are forthcoming I have personally seen and examined the patient, performed the documentation and the assessment and plan as written. Number of minutes spent on the visit:20 Time with Patient: Greater than 30
[2024-02-22 08:20] LABS: Glucose,Whole Blood 178 mg/dL (70-110)
[2024-02-22 08:22] LABS: Basophils % (A) 0 %; Eosinophils % (A) 0 %; HCT 35.2 % (34.0-46.0); HGB 10.6 gm/dL (11.4-16.0); Hypochromasia Slight; Lymphocytes # (A) 0.2 k/uL (1.0-4.8); Lymphocytes % (A) 6 %; MCH 27.7 pg (25.0-35.0); MCHC 30.3 g/dL (31.0-37.0); MCV 91.6 fL (80.0-100.0); Mean Platelet Volume 8.3; Monocytes # (A) 0.2 k/uL (0-1.0); Monocytes % (A) 6 %; Neutrophils # (A) 3.1 k/uL (1.3-7.7); Neutrophils % (A) 88 %; Platelet Count 248 k/uL (150-450); RBC 3.84 m/uL (3.80-5.40); RDW 14.4 % (11.5-15.5); WBC 3.5 k/uL (3.8-10.6)
[2024-02-22] MEDS: SYMBICORT 160-4.5 MCG INHALER INHALATION SCH (08:28)
[2024-02-22] MEDS: FUROSEMIDE 10 MG/ML 4 ML VIAL IV SCH (08:55)
[2024-02-22 09:38] LABS: ALT 81 U/L (4-34); AST 57 U/L (14-36); African American GFR (CKD) 37 (>60 ml/min/1.73 sqM); Albumin 4.2 g/dL (3.5-5.0); Alkaline Phosphatase 83 U/L (38-126); Anion Gap 9 mmol/L; Blood Urea Nitrogen 34 mg/dL (7-17); Calcium 9.1 mg/dL (8.4-10.2); Carbon Dioxide 24 mmol/L (22-30); Chloride 94 mmol/L (98-107); Glucose 189 mg/dL (74-99); Non-African American GFR(CKD) 32 (>60 ml/min/1.73 sqM); Potassium 4.5 mmol/L (3.5-5.1); Sodium 127 mmol/L (137-145); Total Bilirubin 0.4 mg/dL (0.2-1.3); Total Protein 6.5 g/dL (6.3-8.2)
[2024-02-22] MEDS: amLODIPine 5 MG TAB PO SCH (10:49)
--- NOTE | 2024-02-22 11:08 | P.HPIM ---
History of Present Illness H&P Date: 02/22/24 History of present illness; patient is a 83-year-old lady with past medical history significant for COPD, chronic hypoxic respiratory failure on 2 to 3 L of oxygen, CHF who presented to ER because of worsening shortness of breath for 1 week. Patient stated that she was all right 1 week back when he started noticing that she was getting more short of breath on exertion. Patient was only able to walk 2 steps before getting short of breath. Patient denied any chest pain. Patient was using her inhalers and breathing treatments much more frequently to keep her shortness of breathin check. Patient also complaining of chest pressure and wheezing. Denied any palpitation. There was no complaint of cough. Denied any swelling of feet. There was no complaint of nausea, vomiting or abdominal pain. There is no complaint of orthopnea or PND. Because of this worsening shortness of breath patient went to PCP office where she was found to be hypoxemic and was directed to come to the ER. Initial lab work done in the ER showed WBC 5.9, hemoglobin 9.6, platelet count 261, INR 1.2, D-dimer 1.52 sodium 123, potassium 5.6, BUN 39, creatinine 1.72, glucose 152, lactate 1.5 magnesium 1.2 EKG done in the ER showed heart rate of 82, no ST segment elevation or depression seen, T wave inversions seen in 1, aVL, V1 1 to V6 Chest x-ray done in the ER showed cardiomegaly with focal midlung opacities, right greater than left, consider multifocal pneumonia versus sequelae of CHF Patient admitted to internal medicine service REVIEW OF SYSTEMS: CONSTITUTIONAL: No fever, no malaise, no fatigue. HEENT: No recent visual problems or hearing problems. Denied any sore throat. CARDIOVASCULAR: As mentioned HPI PULMONARY: As mentioned HPI GASTROINTESTINAL: No diarrhea, no nausea, no vomiting, no abdominal pain. NEUROLOGICAL: No headaches, no weakness, no numbness. HEMATOLOGICAL: Denies any bleeding or petechiae. GENITOURINARY: Denies any burning micturition, frequency, or urgency. MUSCULOSKELETAL/RHEUMATOLOGICAL: Denies any joint pain, swelling, or any muscle pain. ENDOCRINE: Denies any polyuria or polydipsia. The rest of the 14-point review of systems is negative. PHYSICAL EXAMINATION: GENERAL: The patient is alert and oriented x3, not in any acute distress. Well developed, well nourished. HEENT: Pupils are round and equally reacting to light. EOMI. No scleral icterus. No conjunctival pallor. Normocephalic, atraumatic. No pharyngeal erythema. No thyromegaly. CARDIOVASCULAR: S1 and S2 present. No murmurs, rubs, or gallops. PULMONARY: Coarse breath sound bilaterally, expiratory wheeze audible ABDOMEN: Soft, nontender, nondistended, normoactive bowel sounds. No palpable organomegaly. MUSCULOSKELETAL: No joint swelling or deformity. EXTREMITIES: No cyanosis, clubbing, or pedal edema. NEUROLOGICAL: Gross neurological examination did not reveal any focal deficits. SKIN: No rashes. Assessment and plan Acute on chronic hypoxemic respiratory failure Acute CHF exacerbation Acute COPD exacerbation Valvular heart disease, including severe mitral regurgitation and mild aortic regurgitation Acute kidney injury, creatinine 1.72 Hypomagnesemia Hyponatremia Hyperkalemia Hypertension Hyperlipidemia [id number] diabetes mellitus History of tobacco addiction Monitor vital signs Monitor CBC Monitor CMP Continue telemetry monitoring Continue oxygen supplementation Aggressive bronchopulmonary hygiene Strict I's and O's, daily weights, continue IV Lasix Continue IV Solu-Medrol Continue breathing treatments Ordered 2D echo Patient D-dimer was elevated, VQ scan was ordered since patient unable to complete CT PE protocol because of kidney injury Continue pharmacy with heparin until VQ scan is completed Consult pulmonary Consult cardiology Labs and medication were reviewed.. Continue same treatment. Continue with symptomatic treatment. Resume home medication. Monitor labs and vitals. DVT and GI prophylaxis. Further recommendations as per clinical course of the patient Dictation was produced using [employer] dictation software. please excuse any gr ammatical, word or spelling errors. Past Medical History Past Medical History: Asthma, COPD, Diabetes Mellitus, Eye Disorder, GERD/Reflux, Hyperlipidemia, Hypertension Additional Past Medical History / Comment(s): leaking heart valve History of Any Multi-Drug Resistant Organisms: None Reported Past Surgical History: Breast Surgery Additional Past Surgical History / Comment(s): EXC LT BREAST LUMP. COLONOSCOPY, EGD. Past Anesthesia/Blood Transfusion Reactions: No Reported Reaction Past Psychological History: No Psychological Hx Reported Smoking Status: Former smoker Past Alcohol Use History: None Reported Additional Past Alcohol Use History / Comment(s): (SMOKED [id number] EST) Past Drug Use History: None Reported - Past Family History Mother Sister(s) Family Medical History: Cancer Medications and Allergies Home Medications Medication Instructions Recorded Confirmed Type Albuterol Inhaler [Ventolin Hfa 1 - 2 puff INHALATION RT-Q6H PRN 09/08/15 02/21/24 History Inhaler] Multivitamins, Thera [Multivitamin 1 tab PO DAILY 09/08/15 02/21/24 History (formulary)] Omeprazole [PriLOSEC] 20 mg PO DAILY 09/08/15 02/21/24 History metFORMIN HCL [Glucophage] 1,000 mg PO BID 09/08/15 02/21/24 History Furosemide [Lasix] 40 mg PO Q48H #30 tab 12/02/18 02/21/24 Rx amLODIPine [Norvasc] 5 mg PO DAILY 04/07/19 02/21/24 History predniSONE 5 mg PO DAILY 04/07/19 02/21/24 History Albuterol Nebulized [Ventolin 2.5 mg INHALATION RT-QID 02/21/24 02/21/24 History Nebulized] Alendronate Sodium 70 mg PO MO 02/21/24 02/21/24 History Calcium Carbonate [Calcium] 1,200 mg PO DAILY 02/21/24 02/21/24 History Cholecalciferol (Vitamin D3) 50 mcg PO DAILY 02/21/24 02/21/24 History [Vitamin D3 (50 Mcg = 2000 Iu)] Cyanocobalamin (Vitamin B-12) 1,000 mcg PO DAILY 02/21/24 02/21/24 History [Vitamin B-12] Eye Itch Relief Drops 1 drop BOTH EYES Q4HR PRN 02/21/24 02/21/24 History Ezetimibe [Zetia] 10 mg PO DAILY 02/21/24 02/21/24 History Fluticasone/Umeclidin/Vilanter 1 puff INHALATION RT-DAILY 02/21/24 02/21/24 History [Trelechris Ellipta 100-62.5-25] Ipratropium Nebulized [Atrovent 0.5 mg INHALATION RT-QID 02/21/24 02/21/24 History Nebulized 0.2 MG/ML] Losartan [Cozaar] 50 mg PO DAILY 02/21/24 02/21/24 History Lovastatin [Mevacor] 80 mg PO HS 02/21/24 02/21/24 History Ubidecarenone [Coenzyme Q10] 200 mg PO DAILY 02/21/24 02/21/24 History Vitamin E (Dl,Tocopheryl Acet) 450 mg PO DAILY 02/21/24 02/21/24 History [Vitamin E (1000 Iu = 450 MG)] Allergies Allergy/AdvReac Type Severity Reaction Status Date / Time aspirin Allergy Rash/Hives Verified 02/21/24 15:55 latex Allergy Rash/Hives Verified 02/21/24 15:55 Penicillins Allergy Unknown Verified 02/21/24 15:55 Childhood venom-honey bee Allergy Dyspnea, Verified 02/21/24 15:55 [bee venom (honey bee)] HIVES Physical Exam Vitals: Vital Signs Temp Pulse Pulse Resp BP BP Pulse Ox 02/22/24 08:29 109 H 02/22/24 08:19 110 H 95 02/22/24 04:00 98.9 F 98 22 129/67 94 L 02/22/24 03:32 102 H 02/22/24 03:21 92 02/22/24 00:00 98.5 F 94 22 128/66 91 L 02/21/24 23:52 96 02/21/24 23:43 97 02/21/24 20:37 99 02/21/24 20:31 98 92 L 02/21/24 20:00 98.5 F 101 H 22 145/87 91 L 02/21/24 19:00 102 H 22 141/99 88 L 02/21/24 18:22 87 L 02/21/24 18:19 98.0 F 93 22 121/65 84 L 02/21/24 15:37 82 02/21/24 15:19 81 02/21/24 14:25 98.0 F 80 20 130/82 93 L 02/21/24 13:26 80 20 129/82 88 L Intake and Output 02/21/24 02/22/24 02/22/24 22:59 06:59 14:59 Output Total 500 300 Balance -500 -300 Output: Urine 500 300 Other: Weight 62.142 kg Results CBC & Chem 7: 02/22/24 07:59 02/22/24 07:59 Labs: Abnormal Lab Results - Last 24 Hours (Table) 02/21/24 02/21/24 02/21/24 Range/Units 14:35 14:35 14:35 WBC (3.8-10.6) k/uL Hgb (11.4-16.0) gm/dL MCHC (31.0-37.0) g/dL Lymphocytes # 0.7 L (1.0-4.8) k/uL PT 12.7 H (10.0-12.5) sec INR 1.2 H (<1.2) APTT (22.0-30.0) sec D-Dimer 1.52 H (<0.60) mg/L FEU Sodium 123 L (137-145) mmol/L Potassium 5.6 H (3.5-5.1) mmol/L Chloride 91 L (98-107) mmol/L BUN 39 H (7-17) mg/dL Creatinine 1.72 H (0.52-1.04) mg/dL Glucose 152 H (74-99) mg/dL POC Glucose (mg/dL) (70-110) mg/dL Magnesium 1.2 L (1.6-2.3) mg/dL AST 84 H (14-36) U/L ALT 91 H (4-34) U/L 02/21/24 02/21/24 02/22/24 Range/Units 21:24 22:30 06:25 WBC (3.8-10.6) k/uL Hgb (11.4-16.0) gm/dL MCHC (31.0-37.0) g/dL Lymphocytes # (1.0-4.8) k/uL PT (10.0-12.5) sec INR (<1.2) APTT 70.9 H (22.0-30.0) sec D-Dimer (<0.60) mg/L FEU Sodium (137-145) mmol/L Potassium (3.5-5.1) mmol/L Chloride (98-107) mmol/L BUN (7-17) mg/dL Creatinine (0.52-1.04) mg/dL Glucose (74-99) mg/dL POC Glucose (mg/dL) 267 H 216 H (70-110) mg/dL Magnesium (1.6-2.3) mg/dL AST (14-36) U/L ALT (4-34) U/L 02/22/24 02/22/24 02/22/24 Range/Units 07:59 07:59 07:59 WBC 3.5 L (3.8-10.6) k/uL Hgb 10.6 L (11.4-16.0) gm/dL MCHC 30.3 L (31.0-37.0) g/dL Lymphocytes # 0.2 L (1.0-4.8) k/uL PT (10.0-12.5) sec INR (<1.2) APTT 79.6 H (22.0-30.0) sec D-Dimer (<0.60) mg/L FEU Sodium 127 L (137-145) mmol/L Potassium (3.5-5.1) mmol/L Chloride 94 L (98-107) mmol/L BUN 34 H (7-17) mg/dL Creatinine 1.51 H (0.52-1.04) mg/dL Glucose 189 H (74-99) mg/dL POC Glucose (mg/dL) (70-110) mg/dL Magnesium (1.6-2.3) mg/dL AST 57 H (14-36) U/L ALT 81 H (4-34) U/L 02/22/24 Range/Units 08:19 WBC (3.8-10.6) k/uL Hgb (11.4-16.0) gm/dL MCHC (31.0-37.0) g/dL Lymphocytes # (1.0-4.8) k/uL PT (10.0-12.5) sec INR (<1.2) APTT (22.0-30.0) sec D-Dimer (<0.60) mg/L FEU Sodium (137-145) mmol/L Potassium (3.5-5.1) mmol/L Chloride (98-107) mmol/L BUN (7-17) mg/dL Creatinine (0.52-1.04) mg/dL Glucose (74-99) mg/dL POC Glucose (mg/dL) 178 H (70-110) mg/dL Magnesium (1.6-2.3) mg/dL AST (14-36) U/L ALT (4-34) U/L
--- NOTE | 2024-02-22 13:13 | NM ---
EXAMINATION TYPE: NM pul vent and perfuse DATE OF EXAM: 02/22/2024 CLINICAL INDICATION: Female, 83 years old with history of Exertional dyspnea elevated D-dimer; COMPARISON: NONE TECHNIQUE: Utilizing inhalation of 38 mCi Tc 99m DTPA aerosol and intravenous injection of 5.3 mCi o f Tc 99m MAA, ventilation and perfusion images are acquired post injection in multiple projections. FINDINGS: There is some mild central deposition. No moderate or large mismatched defects identified. Comparison chest x-ray 02/21/2024 has small effusions. Small matched defect at the costophrenic angles appears t o be present. IMPRESSION: Low end of intermediate probability, approximately 22%, for pulmonary embolism based on PIOPED 2 crit eria with triple match defect.
[2024-02-22 17:09] LABS: Glucose,Whole Blood 260 mg/dL (70-110)
[2024-02-22 21:29] LABS: Glucose,Whole Blood 218 mg/dL (70-110)
[2024-02-22] MEDS: ATORVASTATIN 20 MG TAB PO SCH (21:33)
[2024-02-23 06:08] LABS: Glucose,Whole Blood 174 mg/dL (70-110)
[2024-02-23] MEDS: PANTOPRAZOLE 40 MG TABLET PO SCH (06:28)
[2024-02-23 07:46] LABS: Basophils % (A) 0 %; Eosinophils % (A) 0 %; HCT 32.7 % (34.0-46.0); HGB 10.1 gm/dL (11.4-16.0); Hypochromasia Slight; Lymphocytes # (A) 0.2 k/uL (1.0-4.8); Lymphocytes % (A) 2 %; MCH 28.2 pg (25.0-35.0); MCV 90.9 fL (80.0-100.0); Mean Platelet Volume 7.8; Monocytes # (A) 0.3 k/uL (0-1.0); Monocytes % (A) 3 %; Neutrophils # (A) 9.6 k/uL (1.3-7.7); Neutrophils % (A) 95 %; Platelet Count 237 k/uL (150-450); RDW 14.7 % (11.5-15.5); WBC 10.1 k/uL (3.8-10.6)
[2024-02-23 08:05] LABS: ALT 69 U/L (4-34); AST 38 U/L (14-36); African American GFR (CKD) 39 (>60 ml/min/1.73 sqM); Albumin 4.1 g/dL (3.5-5.0); Alkaline Phosphatase 73 U/L (38-126); Anion Gap 10 mmol/L; Blood Urea Nitrogen 30 mg/dL (7-17); Calcium 8.6 mg/dL (8.4-10.2); Carbon Dioxide 27 mmol/L (22-30); Chloride 93 mmol/L (98-107); Glucose 167 mg/dL (74-99); Non-African American GFR(CKD) 34 (>60 ml/min/1.73 sqM); Potassium 4.4 mmol/L (3.5-5.1); Sodium 130 mmol/L (137-145); Total Bilirubin 0.5 mg/dL (0.2-1.3); Total Protein 6.2 g/dL (6.3-8.2)
[2024-02-23] MEDS: VITAMIN E (DL,TOCOPHERYL ACET) 400 UNIT (180 MG) CAP PO SCH (08:06)
[2024-02-23] MEDS: IPRATROPIUM-ALBUTEROL 3 ML NEB INHALATION SCH (08:22)
--- NOTE | 2024-02-23 10:29 | CA ---
Transthoracic Echo Report Name: Shannon Tian Age: 83 Gender: F : 1940 Exam Date: 02/22/2024 09:20 Exam Location: [facility] Ht (in): 60 Wt (lb): 137 Ordering Physician: Hany Simpson PAC Attending/Referring Phys: KARY, Tatiana Employee Benefits Coordinator Evi Virk RDCS Procedure CPT: Indications: exertional dyspnea Cardiac Hx: Technical Quality: Good Contrast 1: Total Dose (mL): Contrast 2: Total Dose (mL): MEASUREMENTS (Male / Female) Normal Values 2D ECHO LV Diastolic Diameter PLAX 5.7 cm 4.2 - 5.9 / 3.9 - 5.3 cm LV Systolic Diameter PLAX 4.9 cm IVS Diastolic Thickness 1.1 cm 0.6 - 1.0 / 0.6 - 0.9 cm LVPW Diastolic Thickness 1.1 cm 0.6 - 1.0 / 0.6 - 0.9 cm LV Relative Wall Thickness 0.4 RV Internal Dim ED PLAX 3.8 cm LV Diastolic Volume MOD BP 97.8 cm??? 67 - 155 / 56 - 104 cm??? LV Systolic Volume MOD BP 54.1 cm??? 22 - 58 / 19 - 49 cm??? LV Ejection Fraction MOD BP 44.7 % >= 55 % LV Cardiac Index MOD BP 2637.3 cm???/min???m??? LV Diastolic Volume MOD 4C 88.1 cm??? LV Systolic Volume MOD 4C 47.6 cm??? LV Ejection Fraction MOD 4C 46.0 % LV Cardiac Index MOD 4C 2445.7 cm???/min???m??? LV Diastolic Length 4C 7.4 cm LV Systolic Length 4C 7.5 cm LV Diastolic Volume MOD 2C 101.5 cm??? LV Systolic Volume MOD 2C 56.6 cm??? LV Ejection Fraction MOD 2C 44.3 % LV Cardiac Index MOD 2C 2712.7 cm???/min???m??? LV Diastolic Length 2C 8.1 cm LV Systolic Length 2C 6.8 cm LA Volume 53.7 cm??? 18 - 58 / 22 - 52 cm??? LA Volume Index 32.8 cm???/m??? 16 - 28 cm???/m??? M-MODE Aortic Root Diameter MM 3.4 cm LA Systolic Diameter MM 3.3 cm LA Ao Ratio MM 1.0 AV Cusp Separation MM 1.5 cm DOPPLER AI Peak Velocity 375.3 cm/s AI Peak Gradient 56.3 mmHg AI Pressure Half Time 542.9 ms MR Peak Velocity 580.9 cm/s MR Peak Gradient 135.0 mmHg TR Peak Velocity 383.8 cm/s TR Peak Gradient 58.9 mmHg Right Ventricular Systolic Press 75.5 mmHg FINDINGS Left Ventricle Left ventricular ejection fraction is estimated at 35-40%. Reduced global left ventricular systolic function. Mildly increased septal wall thickness. Mildly increased posterior wall thickness. Mildly increased left ventricular diastolic diameter. Mildly increased left ventricular systolic volume. Moderately decreased left ventricular ejection fraction. D-shaped ventricle consistent with RV pressure overload. Right Ventricle Severe right ventricular dilatation. Severely reduced right ventricular global systolic function. Severe pulmonary hypertension. Right Atrium Moderate right atrial dilatation. Left Atrium Mildly increased left atrial volume. Mitral Valve Structurally normal mitral valve. [place]-ck-fhnovd mitral regurgitation. Aortic Valve Trileaflet aortic valve. Mild aortic regurgitation. No aortic stenosis. Tricuspid Valve Structurally normal tricuspid valve. Severe tricuspid regurgitation. Pulmonic Valve Structurally normal pulmonic valve. Mild pulmonic regurgitation. No pulmonic stenosis. Pericardium Right pleural effusion. Aorta Normal size aortic root and proximal ascending aorta. CONCLUSIONS Left ventricle size is normal with global decrease in contractility and estimated ejection fraction of about 40%. Right ventricle is enlarged there is evidence of pressure and volume overload with flattening of interventricular septum. There is an enlarged atria area to moderate to severe eccentric mitral regurgitation noted. Severe tricuspid regurgitation. There is no significant pericardial effusion probably some pleural effusion is noted. Previewed by: Dr. Rafael Alamo MD (Electronically Signed) Final Date: 23 Feb 2024 10:28
[2024-02-23 11:38] LABS: Glucose,Whole Blood 205 mg/dL (70-110)
--- NOTE | 2024-02-23 13:01 | P.CRDCN ---
History of Present Illness History of present illness: This is Dr. 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 Worsening shortness of breath mildly abnormal D-dimer and intermediate probability VQ scan Chronic kidney disease PLAN: From a cardiac standpoint 2D echo and Doppler study Continue management of COPD exacerbation and likely pulmonary embolism Continue recommendations from pulmonary medicine Please call us as needed for any specific cardiac issue Sinus tachycardia as expected given her hypoxic acute on chronic respiratory f ailure and likely pulmonary embolism HPI Patient presented to the ER from the PCPs office with shortness of breath was going on for at least a week The shortness of breath is exertional She has known COPD and is oxygen dependent but she found no relief from usual treatment Her D-dimer was mildly elevated and she underwent a VQ scan since her creatinine is 1.72 D-dimer intermediate probability ROS: No fever chills or rigors, no cough, phlegm or expectoration, no nausea, vomiting or diarrhea, no hematuria, dysuria, no musculoskeletal complaints, no strokes or seizures, no skin lesions. EXAMINATION: Patient is resting in bed. She is short of breath at rest Very reduced breath sounds bilaterally pursed lip breathing Blood pressure 137/68 mmHg sinus tachycardia heart rate 110 beats a minute REVIEW OF LABS, ECG & MEDICAL DATA Hemoglobin 10.1 Platelet count 237,000, white count 10.1 Sodium 130, potassium 4.4 BUN 30 and creatinine 1.45 Mildly abnormal AST and ALT Elevated D-dimer Past Medical History Past Medical History: Asthma, COPD, Diabetes Mellitus, Eye Disorder, GERD/Reflux, Hyperlipidemia, Hypertension Additional Past Medical History / Comment(s): leaking heart valve History of Any Multi-Drug Resistant Organisms: None Reported Past Surgical History: Breast Surgery Additional Past Surgical History / Comment(s): EXC LT BREAST LUMP. COLONOSCOPY, EGD. Past Anesthesia/Blood Transfusion Reactions: No Reported Reaction Past Psychological History: No Psychological Hx Reported Smoking Status: Former smoker Past Alcohol Use History: None Reported Additional Past Alcohol Use History / Comment(s): (SMOKED [id number] EST) Past Drug Use History: None Reported - Past Family History Mother Sister(s) Family Medical History: Cancer Medications and Allergies Home Medications Medication Instructions Recorded Confirmed Type Albuterol Inhaler [Ventolin Hfa 1 - 2 puff INHALATION RT-Q6H PRN 09/08/15 02/21/24 History Inhaler] Multivitamins, Thera [Multivitamin 1 tab PO DAILY 09/08/15 02/21/24 History (formulary)] Omeprazole [PriLOSEC] 20 mg PO DAILY 09/08/15 02/21/24 History metFORMIN HCL [Glucophage] 1,000 mg PO BID 09/08/15 02/21/24 History Furosemide [Lasix] 40 mg PO Q48H #30 tab 12/02/18 02/21/24 Rx amLODIPine [Norvasc] 5 mg PO DAILY 04/07/19 02/21/24 History predniSONE 5 mg PO DAILY 04/07/19 02/21/24 History Albuterol Nebulized [Ventolin 2.5 mg INHALATION RT-QID 02/21/24 02/21/24 History Nebulized] Alendronate Sodium 70 mg PO MO 02/21/24 02/21/24 History Calcium Carbonate [Calcium] 1,200 mg PO DAILY 02/21/24 02/21/24 History Cholecalciferol (Vitamin D3) 50 mcg PO DAILY 02/21/24 02/21/24 History [Vitamin D3 (50 Mcg = 2000 Iu)] Cyanocobalamin (Vitamin B-12) 1,000 mcg PO DAILY 02/21/24 02/21/24 History [Vitamin B-12] Eye Itch Relief Drops 1 drop BOTH EYES Q4HR PRN 02/21/24 02/21/24 History Ezetimibe [Zetia] 10 mg PO DAILY 02/21/24 02/21/24 History Fluticasone/Umeclidin/Vilanter 1 puff INHALATION RT-DAILY 02/21/24 02/21/24 History [Trelegy Ellipta 100-62.5-25] Ipratropium Nebulized [Atrovent 0.5 mg INHALATION RT-QID 02/21/24 02/21/24 History Nebulized 0.2 MG/ML] Losartan [Cozaar] 50 mg PO DAILY 02/21/24 02/21/24 History Lovastatin [Mevacor] 80 mg PO HS 02/21/24 02/21/24 History Ubidecarenone [Coenzyme Q10] 200 mg PO DAILY 02/21/24 02/21/24 History Vitamin E (Dl,Tocopheryl Acet) 450 mg PO DAILY 02/21/24 02/21/24 History [Vitamin E (1000 Iu = 450 MG)] Allergies Allergy/AdvReac Type Severity Reaction Status Date / Time aspirin Allergy Rash/Hives Verified 02/21/24 15:55 latex Allergy Rash/Hives Verified 02/21/24 15:55 Penicillins Allergy Unknown Verified 02/21/24 15:55 Childhood venom-honey bee Allergy Dyspnea, Verified 02/21/24 15:55 [bee venom (honey bee)] HIVES Physical Exam Vitals: Vital Signs Temp Pulse Pulse Resp BP BP Pulse Ox 02/23/24 11:55 104 H 02/23/24 11:41 102 H 02/23/24 11:22 110 H 20 137/68 90 L 02/23/24 11:20 20 86 L 02/23/24 08:38 110 H 02/23/24 08:23 112 H 94 L 02/23/24 08:00 97.8 F 114 H 24 132/74 91 L 02/23/24 04:00 98.7 F 114 H 22 130/72 92 L 02/23/24 00:00 109 H 22 122/66 92 L 02/22/24 20:39 98.6 F 107 H 22 133/75 91 L 02/22/24 19:45 118 H 02/22/24 19:36 98.5 F 121 H 26 H 136/71 93 L 02/22/24 19:35 116 H 02/22/24 18:07 87 18 128/32 94 L 02/22/24 16:09 114 H 02/22/24 16:00 112 H 20 93/78 91 L 02/22/24 15:58 112 H Intake and Output 02/22/24 02/23/24 02/23/24 22:59 06:59 14:59 Intake Total 231.923 Output Total 1000 Balance -1000 231.923 Intake: Intake, IV Titration 231.923 Amount Heparin Sod,Pork in 0.45% 231.923 NaCl 25,000 unit In 0.45 % NaCl 1 250ml.bag @ 18 UNITS/KG/HR 11.186 mls/hr IV .[id number] [facility] Rx#: [id number] Output: Urine 1000 Other: Voiding Method Bedside Commode Bedside Commode Bedside Commode # Voids 0 Weight 60.4 kg Results 02/23/24 06:41 02/23/24 06:41 Cardiac Enzymes 02/23/24 Range/Units 06:41 AST 38 H (14-36) U/L Coagulation 02/23/24 Range/Units 06:41 APTT 66.0 H (22.0-30.0) sec CBC 02/23/24 Range/Units 06:41 WBC 10.1 (3.8-10.6) k/uL RBC 3.60 L (3.80-5.40) m/uL Hgb 10.1 L (11.4-16.0) gm/dL Hct 32.7 L (34.0-46.0) % Plt Count 237 (150-450) k/uL Comprehensive Metabolic Panel 02/23/24 Range/Units 06:41 Sodium 130 L (137-145) mmol/L Potassium 4.4 (3.5-5.1) mmol/L Chloride 93 L (98-107) mmol/L Carbon Dioxide 27 (22-30) mmol/L BUN 30 H (7-17) mg/dL Creatinine 1.45 H (0.52-1.04) mg/dL Glucose 167 H (74-99) mg/dL Calcium 8.6 (8.4-10.2) mg/dL AST 38 H (14-36) U/L ALT 69 H (4-34) U/L Alkaline Phosphatase 73 (38-126) U/L Total Protein 6.2 L (6.3-8.2) g/dL Albumin 4.1 (3.5-5.0) g/dL Current Medications Generic Name Dose Route Start Last Admin Trade Name Freq PRN Reason Stop Dose Admin Albuterol/Ipratropium 3 ml 02/21/24 15:40 Ipratropium-Albuterol 3 Ml Neb INHALATION RT-Q2H PRN Shortness Of Breath Or Wheezing Albuterol/Ipratropium 3 ml 02/23/24 08:00 02/23/24 11:41 Ipratropium-Albuterol 3 Ml Neb INHALATION 3 ml RT-QID [facility] Administration Amlodipine Besylate 5 mg 02/22/24 10:15 02/23/24 08:06 Amlodipine 5 Mg Tab PO 5 mg DAILY [facility] Administration Apixaban 10 mg 02/23/24 12:45 Apixaban Initiation Dose--Vte 5 Mg Tab PO 03/24/24 12:44 BID [facility] Taper Atorvastatin Calcium 20 mg 02/22/24 21:00 02/22/24 21:33 Atorvastatin 20 Mg Tab PO 20 mg HS [facility] Administration Budesonide/Formoterol Fumarate 2 puff 02/22/24 08:00 02/23/24 08:22 Symbicort 160-4.5 Mcg Inhaler INHALATION 2 puff RT-BID [facility] Administration Furosemide 40 mg 02/22/24 09:00 02/23/24 08:06 Furosemide 10 Mg/Ml 4 Ml Vial IV 40 mg DAILY [facility] Administration Sodium Chloride 1,000 mls @ 75 mls/hr 02/21/24 15:15 02/23/24 06:28 Saline 0.9% IV 75 mls/hr .[id number] [facility] Administration Insulin Aspart 0 unit 02/21/24 22:00 02/23/24 11:54 Insulin Aspart (Novolog) 100 Unit/Ml Vial SQ 4 unit ACHS [facility] Administration Protocol Methylprednisolone Sodium Succinate 60 mg 02/21/24 21:00 02/23/24 08:06 Methylprednisolone Sod Succi 125 Mg/2 Ml Vial IV 60 mg Q6H [facility] Administration Pantoprazole Sodium 40 mg 02/23/24 07:30 02/23/24 06:28 Pantoprazole 40 Mg Tablet PO 40 mg [id number] [facility] Administration Vitamin E 400 unit 02/23/24 09:00 02/23/24 08:06 Vitamin E (Dl,Tocopheryl Acet) 400 Unit (180 Mg) Cap PO 400 unit DAILY [facility] Administration Intake and Output 02/22/24 02/23/24 02/23/24 22:59 06:59 14:59 Intake Total 231.923 Output Total 1000 Balance -1000 231.923 Intake: Intake, IV Titration 231.923 Amount Heparin Sod,Pork in 0.45% 231.923 NaCl 25,000 unit In 0.45 % NaCl 1 250ml.bag @ 18 UNITS/KG/HR 11.186 mls/hr IV .[id number] [facility] Rx#: [id number] Output: Urine 1000 Other: Voiding Method Bedside Commode Bedside Commode Bedside Commode # Voids 0 Weight 60.4 kg 02/23/24 06:41 02/23/24 06:41
[2024-02-23] MEDS: Apixaban Initiation Dose--VTE 5 MG TAB PO SCH (13:19)
--- NOTE | 2024-02-23 13:28 | P.PN ---
Subjective Progress Note Date: 02/23/24 patient is a 83-year-old lady with past medical history significant for COPD, chronic hypoxic respiratory failure on 2 to 3 L of oxygen, CHF who presented to ER because of worsening shortness of breath for 1 week. Patient stated that she was all right 1 week back when he started noticing that she was getting more short of breath on exertion. Patient was only able to walk 2 steps before getting short of breath. Patient denied any chest pain. Patient was using her inhalers and breathing treatments much more frequently to keep her shortness of breathin check. Patient also complaining of chest pressure and wheezing. Denied any palpitation. There was no complaint of cough. Denied any swelling of feet. There was no complaint of nausea, vomiting or abdominal pain. There is no complaint of orthopnea or PND. Because of this worsening shortness of breath patient went to PCP office where she was found to be hypoxemic and was directed to come to the ER. Initial lab work done in the ER showed WBC 5.9, hemoglobin 9.6, platelet count 261, INR 1.2, D-dimer 1.52 sodium 123, potassium 5.6, BUN 39, creatinine 1.72, glucose 152, lactate 1.5 magnesium 1.2 EKG done in the ER showed heart rate of 82, no ST segment elevation or depression seen, T wave inversions seen in 1, aVL, V1 1 to V6 Chest x-ray done in the ER showed cardiomegaly with focal midlung opacities, right greater than left, consider multifocal pneumonia versus sequelae of CHF Patient admitted to internal medicine service 02/22. Patient seen and examined. VQ scan done showed intermediate probability for PE, pulmonology recommended keeping patient on pharmacy with heparin. Continues to be on 5 L of oxygen. Gets short of breath on exertion REVIEW OF SYSTEMS: CONSTITUTIONAL: No fever, no malaise,. CARDIOVASCULAR: No chest pain, no palpitations, no syncope. PULMONARY: As mentioned above GASTROINTESTINAL: No diarrhea, no nausea, no vomiting, no abdominal pain. NEUROLOGICAL: No headaches, no weakness, PHYSICAL EXAMINATION: GENERAL: The patient is alert and oriented x3, not in any acute distress. Well developed, well nourished. HEENT: Pupils are round and equally reacting to light. EOMI. No scleral icterus. No conjunctival pallor. Normocephalic, atraumatic. No pharyngeal erythema. No thyromegaly. CARDIOVASCULAR: S1 and S2 present. No murmurs, rubs, or gallops. PULMONARY: Chest is clear to auscultation, no wheezing or crackles. ABDOMEN: Soft, nontender, nondistended, normoactive bowel sounds. No palpable organomegaly. MUSCULOSKELETAL: No joint swelling or deformity. EXTREMITIES: No cyanosis, clubbing, or pedal edema. NEUROLOGICAL: Gross neurological examination did not reveal any focal deficits. SKIN: No rashes. Assessment and plan Acute on chronic hypoxemic respiratory failure Acute CHF exacerbation Acute COPD exacerbation Valvular heart disease, including severe mitral regurgitation and mild aortic regurgitation Acute kidney injury, creatinine 1.72 Hypomagnesemia Hyponatremia Hyperkalemia Hypertension Hyperlipidemia Dnw-homoxbt-jtutzbfon diabetes mellitus History of tobacco addiction Monitor vital signs Monitor CBC Monitor CMP Continue telemetry monitoring Continue oxygen supplementation Aggressive bronchopulmonary hygiene Strict I's and O's, daily weights, continue IV Lasix Continue IV Solu-Medrol Continue breathing treatments 2D echo done showed LVEF of 40%, right ventricular is large with evidence of pressure and volume overload with flattening of interventricular septum VQ scan done showed intermediate probability for PE Continue pharmacy dose heparin Pulmonology following Cardiology following Labs and medication were reviewed.. Continue same treatment. Continue with symptomatic treatment. Resume home medication. Monitor labs and vitals. DVT and GI prophylaxis. Further recommendations as per clinical course of the patient Dictation was produced using [email or web address] dictation software. please excuse any grammatical, word or spelling errors. Objective - Vital Signs Vital signs: Vital Signs Temp 97.8 F 02/23/24 08:00 Pulse 110 H 02/23/24 08:38 Resp 24 02/23/24 08:00 BP 132/74 02/23/24 08:00 Pulse Ox 94 L 02/23/24 08:23 FiO2 Intake & Output 02/22/24 02/23/24 02/23/24 18:59 06:59 18:59 Intake Total 241.618 Output Total 300 1000 Balance -58.382 -1000 Weight 60.4 kg Intake: Intake, IV Titration 241.618 Amount Heparin Sod,Pork in 0.45% 241.618 NaCl 25,000 unit In 0.45 % NaCl 1 250ml.bag @ 18 UNITS/KG/HR 11.186 mls/hr IV .[id number] [facility] Rx#: [id number] Output: Urine 300 1000 Other: Voiding Method Bedside Commode Bedside Commode # Voids 0 - Labs CBC & Chem 7: 02/23/24 06:41 02/23/24 06:41 Labs: Abnormal Lab Results - Last 24 Hours (Table) 02/22/24 02/22/24 02/22/24 Range/Units 08:00 17:08 21:28 RBC (3.80-5.40) m/uL Hgb (11.4-16.0) gm/dL Hct (34.0-46.0) % Neutrophils # (1.3-7.7) k/uL Lymphocytes # (1.0-4.8) k/uL APTT (22.0-30.0) sec Sodium (137-145) mmol/L Chloride (98-107) mmol/L BUN (7-17) mg/dL Creatinine (0.52-1.04) mg/dL Glucose (74-99) mg/dL POC Glucose (mg/dL) 260 H 218 H (70-110) mg/dL AST (14-36) U/L ALT (4-34) U/L Total Protein (6.3-8.2) g/dL Procalcitonin 0.10 H (0.02-0.09) ng/mL 02/23/24 02/23/24 02/23/24 Range/Units 06:07 06:41 06:41 RBC 3.60 L (3.80-5.40) m/uL Hgb 10.1 L (11.4-16.0) gm/dL Hct 32.7 L (34.0-46.0) % Neutrophils # 9.6 H (1.3-7.7) k/uL Lymphocytes # 0.2 L (1.0-4.8) k/uL APTT (22.0-30.0) sec Sodium 130 L (137-145) mmol/L Chloride 93 L (98-107) mmol/L BUN 30 H (7-17) mg/dL Creatinine 1.45 H (0.52-1.04) mg/dL Glucose 167 H (74-99) mg/dL POC Glucose (mg/dL) 174 H (70-110) mg/dL AST 38 H (14-36) U/L ALT 69 H (4-34) U/L Total Protein 6.2 L (6.3-8.2) g/dL Procalcitonin (0.02-0.09) ng/mL 02/23/24 Range/Units 06:41 RBC (3.80-5.40) m/uL Hgb (11.4-16.0) gm/dL Hct (34.0-46.0) % Neutrophils # (1.3-7.7) k/uL Lymphocytes # (1.0-4.8) k/uL APTT 66.0 H (22.0-30.0) sec Sodium (137-145) mmol/L Chloride (98-107) mmol/L BUN (7-17) mg/dL Creatinine (0.52-1.04) mg/dL Glucose (74-99) mg/dL POC Glucose (mg/dL) (70-110) mg/dL AST (14-36) U/L ALT (4-34) U/L Total Protein (6.3-8.2) g/dL Procalcitonin (0.02-0.09) ng/mL Microbiology - Last 24 Hours (Table) 02/21/24 16:48 Blood Culture - Preliminary Blood 02/21/24 16:22 Blood Culture - Preliminary Blood
--- NOTE | 2024-02-23 13:33 | US ---
EXAMINATION TYPE: US venous doppler duplex LE BI DATE OF EXAM: 02/23/2024 12:55 PM COMPARISON: NONE CLINICAL INDICATION: Female, 83 years old with history of swelling, elevated d-dimer; elevated d-dime r, no h/o DVT, no symptoms SIDE PERFORMED: Bilateral TECHNIQUE: The lower extremity deep venous system is examined utilizing real time linear array sonog alethea with graded compression, doppler sonography and color-flow sonography. VESSELS IMAGED: Common Femoral Vein Deep Femoral Vein Greater Saphenous Vein * Femoral Vein Popliteal Vein Small Saphenous Vein * Proximal Calf Veins Posterior tibial veins (* superficial vessels) Right Leg: Negative for DVT Left Leg: Negative for DVT IMPRESSION: No evidence for DVT within the bilateral lower extremities.
[2024-02-23 16:15] LABS: Glucose,Whole Blood 228 mg/dL (70-110)
--- NOTE | 2024-02-23 16:31 | P.PN ---
Subjective Progress Note Date: 02/23/24 Principal diagnosis: Acute on chronic hypoxic respiratory failure, multifactorial Patient is an 83-year-old female with past medical history significant for asthma/COPD, valvular heart disease, hyperlipidemia, hypertension, diabetes mellitus, and former tobacco smoker. Her primary care provider is Dr. Brittani Angel. She does follow in the pulmonary office with Dr. Rebollar for management of her moderate COPD. She has an FEV1 52% of predicted. She has a remote smoking history, quitting over 25 years ago. She is chronically oxygen dependent on 2 to 3 L at home. She is on Trelegy maintenance inhaler, albuterol nebs, as well as PRN albuterol rescue inhaler. She was just recently up [place] with her adult children, in the [place] area, approximately 2-hour drive from home. She states that she was severely more short of breath than her baseline dyspnea. States she could not walk more than a couple feet without troubles breathing. At that time, her chest felt tight and she had associated wheezing. Denies any fevers. Denies any cough or sputum production. Denies any hemoptysis. Denies any chest pain. She finally went to be evaluated by her primary care provider, was noted to be hypoxic in the office, and directed to the emergency room yesterday afternoon for evaluation. Chest x-ray on arrival demonstrated moderate cardiomegaly with focal midlung opacities right greater than left, which appeared to be chronic findings when compared to previous i maging. There are also new trace bilateral pleural effusions. NT proBNP was elevated at 42,000 on arrival. She does take Lasix 40 mg daily outpatient, and has not missed any doses. She is known to have severe valvular heart disease. Most recent available echocardiogram demonstrated a mild to moderately impaired left ventricular ejection fraction estimated at 40 to 45%. There was severe mitral regurgitation and mild aortic regurgitation. While in the emergency room, patient was started on IV heparin infusion per protocol. Her D-dimer was elevated at 1.52. Patient denies any lower extremity swelling or history of DVT. Denies any personal or familial history of any sort of blood clots. No recent surgical history or trauma. The patient is denies any chest pain, lightheadedness, or syncopal events. Current heart rhythm is normal sinus averaging around 90 to 100 bpm. She has apparently sustained acute kidney injury, and is unable to undergo chest CT angio protocol. Labs consist of a unremarkable CBC. No leukocytosis. BMP on arrival: Sodium 123, potassium 5.6, chloride 91, serum bicarb 22, BUN 39, creatinine 1.72, glucose 152. LFTs mildly elevated. EKG shows sinus rhythm with a right bundle branch block and T wave inversion in the anterior and inferior leads. Troponins negative x 3. She currently remains in the emergency department, room 18. She is resting comfortably on the stretcher. She is on 6 L/min nasal cannula, SpO2 is 91%. Blood pressure is normotensive. Heart rate is 92 bpm. She is waiting for a bed on the cardiac stepdown unit. Patient was reevaluated today on 02/23/2024, she is feeling much better today compared to how she felt yesterday. Less cough less wheezing less shortness of breath, patient remains on heparin, her VQ scan came back intermediate probability, hence I am recommending that we continue anticoagulation therapy mostly based on her clinical history and based on the fact that she does have positive D-dimer. Patient is still having renal issues and we cannot perform a CT angiogram of the chest, I will transition the patient to Eliquis, and the issue of thromboembolic disease will be addressed down the line on outpatient basis. But for now I believe and I am strongly recommending that she remains on Eliquis. Her basic metabolic profile is normal BUN is 30 creatinine 1.45 CBC is relatively normal Objective - Vital Signs Vital signs: Vital Signs Temp 97.6 F 02/23/24 15:17 Pulse 104 H 02/23/24 15:44 Resp 24 02/23/24 15:17 BP 114/63 02/23/24 15:17 Pulse Ox 92 L 02/23/24 15:17 FiO2 Intake & Output 02/22/24 02/23/24 02/23/24 18:59 06:59 18:59 Intake Total 241.618 253.549 Output Total 300 1000 1100 Balance -58.382 -1000 -846.451 Weight 60.4 kg Intake: Intake, IV Titration 241.618 253.549 Amount Heparin Sod,Pork in 0.45% 241.618 253.549 NaCl 25,000 unit In 0.45 % NaCl 1 250ml.bag @ 18 UNITS/KG/HR 11.186 mls/hr IV .[id number] [facility] Rx#: [id number] Output: Urine 300 1000 1100 Other: Voiding Method Bedside Commode Bedside Commode # Voids 0 - Exam GENERAL EXAM: Alert, 83-year-old white female, on 6 L nasal cannula, O2 saturation 92% HEAD: Normocephalic and atraumatic EYES: Normal reaction of pupils, equal size. NOSE: Clear with pink turbinates. THROAT: No erythema or exudates. NECK: No masses, no JVD. CHEST: No chest wall deformity. LUNGS: Scattered rhonchi noted bilaterally. CVS: S1 and S2 normal with no audible murmur, regular rhythm. No extra heart sounds ABDOMEN: No hepatosplenomegaly, active bowel sounds, no guarding or rigidity. SKIN: No rashes CENTRAL NERVOUS SYSTEM: Alert and oriented x 3 no gross focal deficit EXTREMITIES: No clubbing edema or cyanosis - Labs CBC & Chem 7: 02/23/24 06:41 02/23/24 06:41 Labs: Abnormal Lab Results - Last 24 Hours (Table) 02/22/24 02/22/24 02/23/24 Range/Units 17:08 21:28 06:07 RBC (3.80-5.40) m/uL Hgb (11.4-16.0) gm/dL Hct (34.0-46.0) % Neutrophils # (1.3-7.7) k/uL Lymphocytes # (1.0-4.8) k/uL APTT (22.0-30.0) sec Sodium (137-145) mmol/L Chloride (98-107) mmol/L BUN (7-17) mg/dL Creatinine (0.52-1.04) mg/dL Glucose (74-99) mg/dL POC Glucose (mg/dL) 260 H 218 H 174 H (70-110) mg/dL AST (14-36) U/L ALT (4-34) U/L Total Protein (6.3-8.2) g/dL 02/23/24 02/23/24 02/23/24 Range/Units 06:41 06:41 06:41 RBC 3.60 L (3.80-5.40) m/uL Hgb 10.1 L (11.4-16.0) gm/dL Hct 32.7 L (34.0-46.0) % Neutrophils # 9.6 H (1.3-7.7) k/uL Lymphocytes # 0.2 L (1.0-4.8) k/uL APTT 66.0 H (22.0-30.0) sec Sodium 130 L (137-145) mmol/L Chloride 93 L (98-107) mmol/L BUN 30 H (7-17) mg/dL Creatinine 1.45 H (0.52-1.04) mg/dL Glucose 167 H (74-99) mg/dL POC Glucose (mg/dL) (70-110) mg/dL AST 38 H (14-36) U/L ALT 69 H (4-34) U/L Total Protein 6.2 L (6.3-8.2) g/dL 02/23/24 02/23/24 Range/Units 11:36 16:14 RBC (3.80-5.40) m/uL Hgb (11.4-16.0) gm/dL Hct (34.0-46.0) % Neutrophils # (1.3-7.7) k/uL Lymphocytes # (1.0-4.8) k/uL APTT (22.0-30.0) sec Sodium (137-145) mmol/L Chloride (98-107) mmol/L BUN (7-17) mg/dL Creatinine (0.52-1.04) mg/dL Glucose (74-99) mg/dL POC Glucose (mg/dL) 205 H 228 H (70-110) mg/dL AST (14-36) U/L ALT (4-34) U/L Total Protein (6.3-8.2) g/dL Microbiology - Last 24 Hours (Table) 02/21/24 16:48 Blood Culture - Preliminary Blood 02/21/24 16:22 Blood Culture - Preliminary Blood Assessment and Plan Assessment: Impression: Acute on chronic hypoxemic respiratory failure, multifactorial, I believe the patient has combination of acute asthma/COPD exacerbation and severe valvular heart disease. Possible thromboembolic disease/pulmonary embolism. Moderate oxygen dependent chronic obstructive pulmonary disease, with an FEV1 52% of predicted. Normally maintained on Trelegy maintenance inhaler, albuterol nebs, as well as as needed albuterol rescue inhaler. Chronic hypoxemic respiratory failure, secondary to above, normally maintained on 2 to 3 L/min nasal cannula. Valvular heart disease, including severe mitral regurgitation and mild aortic regurgitation Acute kidney injury, creatinine 1.72 Hyperkalemia, secondary to above Chronic hyponatremia Diabetes mellitus type 2, [id number]-glxsbroug Remote history of tobacco dependence Recommendation: Continue bronchodilators. Continue oxygen and titrate accordingly Continue gentle diuresis Continue diuretics and consider stopping antibiotics. Procalcitonin level is only 0.10 Continue anticoagulation therapy and transition to Eliquis for now. Her VQ scan is not truly diagnostic but indeterminate, and based on the clinical history I would rather keep the patient on anticoagulation therapy for now. Will continue to follow Time with Patient: Less than 30
[2024-02-23 20:21] LABS: Glucose,Whole Blood 244 mg/dL (70-110)
[2024-02-24 06:09] LABS: Glucose,Whole Blood 195 mg/dL (70-110)
[2024-02-24 11:35] LABS: Glucose,Whole Blood 203 mg/dL (70-110)
--- NOTE | 2024-02-24 12:41 | P.PN ---
Subjective Progress Note Date: 02/24/24 patient is a 83-year-old lady with past medical history significant for COPD, chronic hypoxic respiratory failure on 2 to 3 L of oxygen, CHF who presented to ER because of worsening shortness of breath for 1 week. Patient stated that she was all right 1 week back when he started noticing that she was getting more short of breath on exertion. Patient was only able to walk 2 steps before getting short of breath. Patient denied any chest pain. Patient was using her inhalers and breathing treatments much more frequently to keep her shortness of breathin check. Patient also complaining of chest pressure and wheezing. Denied any palpitation. There was no complaint of cough. Denied any swelling of feet. There was no complaint of nausea, vomiting or abdominal pain. There is no complaint of orthopnea or PND. Because of this worsening shortness of breath patient went to PCP office where she was found to be hypoxemic and was directed to come to the ER. Initial lab work done in the ER showed WBC 5.9, hemoglobin 9.6, platelet count 261, INR 1.2, D-dimer 1.52 sodium 123, potassium 5.6, BUN 39, creatinine 1.72, glucose 152, lactate 1.5 magnesium 1.2 EKG done in the ER showed heart rate of 82, no ST segment elevation or depression seen, T wave inversions seen in 1, aVL, V1 1 to V6 Chest x-ray done in the ER showed cardiomegaly with focal midlung opacities, right greater than left, consider multifocal pneumonia versus sequelae of CHF Patient admitted to internal medicine service 02/22. Patient seen and examined. VQ scan done showed intermediate probability for PE, pulmonology recommended keeping patient on pharmacy with heparin. Continues to be on 5 L of oxygen. Gets short of breath on exertion 02/23. Patient seen and examined. States she feels much better. Denies any shortness of breath at rest. Currently on 4 L of oxygen REVIEW OF SYSTEMS: CONSTITUTIONAL: No fever, no malaise,. CARDIOVASCULAR: No chest pain, no palpitations, no syncope. PULMONARY: As mentioned above GASTROINTESTINAL: No diarrhea, no nausea, no vomiting, no abdominal pain. NEUROLOGICAL: No headaches, no weakness, PHYSICAL EXAMINATION: GENERAL: The patient is alert and oriented x3, not in any acute distress. Well developed, well nourished. HEENT: Pupils are round and equally reacting to light. EOMI. No scleral icterus. No conjunctival pallor. Normocephalic, atraumatic. No pharyngeal erythema. No thyromegaly. CARDIOVASCULAR: S1 and S2 present. No murmurs, rubs, or gallops. PULMONARY: Chest is clear to auscultation, no wheezing or crackles. ABDOMEN: Soft, nontender, nondistended, normoactive bowel sounds. No palpable organomegaly. MUSCULOSKELETAL: No joint swelling or deformity. EXTREMITIES: No cyanosis, clubbing, or pedal edema. NEUROLOGICAL: Gross neurological examination did not reveal any focal deficits. SKIN: No rashes. Assessment and plan Acute on chronic hypoxemic respiratory failure Acute CHF exacerbation Acute COPD exacerbation Valvular heart disease, including severe mitral regurgitation and mild aortic regurgitation Elevated dimer, VQ scan showing intermediate probably for PE, possible thromboembolic disease Acute kidney injury, creatinine 1.72 Hypomagnesemia Hyponatremia Hyperkalemia Hypertension Hyperlipidemia Bki-vytgsuz-aygegbfia diabetes mellitus History of tobacco addiction Monitor vital signs Monitor CBC Monitor CMP Continue telemetry monitoring Continue oxygen supplementation Aggressive bronchopulmonary hygiene Strict I's and O's, daily weights, continue IV Lasix Continue IV Solu-Medrol Continue breathing treatments 2D echo done showed LVEF of 40%, right ventricular is large with evidence of pressure and volume overload with flattening of interventricular septum VQ scan done showed intermediate probability for PE Pulmonology following, recommended treating for thromboembolic disease since patient cannot have a CTA chest done at this time, patient was transitioned to Eliquis Cardiology following Labs and medication were reviewed.. Continue same treatment. Continue with symptomatic treatment. Resume home medication. Monitor labs and vitals. DVT and GI prophylaxis. Further recommendations as per clinical course of the pa rosario Dictation was produced using [employer] dictation software. please excuse any grammatical, word or spelling errors. Objective - Vital Signs Vital signs: Vital Signs Temp 98.5 F 02/24/24 03:48 Pulse 60 02/24/24 03:48 Resp 16 02/24/24 03:48 BP 115/68 02/24/24 03:48 Pulse Ox 92 L 02/24/24 03:48 FiO2 Intake & Output 02/23/24 02/24/24 02/24/24 18:59 06:59 18:59 Intake Total 493.549 Output Total 1425 650 Balance -931.451 -650 Weight 61 kg Intake: Intake, IV Titration 253.549 Amount Heparin Sod,Pork in 0.45% 253.549 NaCl 25,000 unit In 0.45 % NaCl 1 250ml.bag @ 18 UNITS/KG/HR 11.186 mls/hr IV .[id number] [facility] Rx#: [id number] Oral 240 Output: Urine 1425 650 Other: Voiding Method Bedside Commode Bedside Commode # Voids 3 - Labs CBC & Chem 7: 02/23/24 06:41 02/23/24 06:41 Labs: Abnormal Lab Results - Last 24 Hours (Table) 02/23/24 02/23/24 02/23/24 Range/Units 11:36 16:14 20:20 POC Glucose (mg/dL) 205 H 228 H 244 H (70-110) mg/dL 02/24/24 Range/Units 06:07 POC Glucose (mg/dL) 195 H (70-110) mg/dL Microbiology - Last 24 Hours (Table) 02/21/24 16:48 Blood Culture - Preliminary Blood 02/21/24 16:22 Blood Culture - Preliminary Blood
--- NOTE | 2024-02-24 13:04 | P.PN ---
Subjective Progress Note Date: 02/24/24 Principal diagnosis: Acute on chronic hypoxic respiratory failure, multifactorial Patient is an 83-year-old female with past medical history significant for asthma/COPD, valvular heart disease, hyperlipidemia, hypertension, diabetes mellitus, and former tobacco smoker. Her primary care provider is Dr. Brittani Angel. She does follow in the pulmonary office with Dr. Rebollar for management of her moderate COPD. She has an FEV1 52% of predicted. She has a remote smoking history, quitting over 25 years ago. She is chronically oxygen dependent on 2 to 3 L at home. She is on Trelegy maintenance inhaler, albuterol nebs, as well as PRN albuterol rescue inhaler. She was just recently up north with her adult children, in the [place] area, approximately 2-hour drive from home. She states that she was severely more short of breath than her baseline dyspnea. States she could not walk more than a couple feet without troubles breathing. At that time, her chest felt tight and she had associated wheezing. Denies any fevers. Denies any cough or sputum production. Denies any hemoptysis. Denies any chest pain. She finally went to be evaluated by her primary care provider, was noted to be hypoxic in the office, and directed to the emergency room yesterday afternoon for evaluation. Chest x-ray on arrival demonstrated moderate cardiomegaly with focal midlung opacities right greater than left, which appeared to be chronic findings when compared to previous i maging. There are also new trace bilateral pleural effusions. NT proBNP was elevated at 42,000 on arrival. She does take Lasix 40 mg daily outpatient, and has not missed any doses. She is known to have severe valvular heart disease. Most recent available echocardiogram demonstrated a mild to moderately impaired left ventricular ejection fraction estimated at 40 to 45%. There was severe mitral regurgitation and mild aortic regurgitation. While in the emergency room, patient was started on IV heparin infusion per protocol. Her D-dimer was elevated at 1.52. Patient denies any lower extremity swelling or history of DVT. Denies any personal or familial history of any sort of blood clots. No recent surgical history or trauma. The patient is denies any chest pain, lightheadedness, or syncopal events. Current heart rhythm is normal sinus averaging around 90 to 100 bpm. She has apparently sustained acute kidney injury, and is unable to undergo chest CT angio protocol. Labs consist of a unremarkable CBC. No leukocytosis. BMP on arrival: Sodium 123, potassium 5.6, chloride 91, serum bicarb 22, BUN 39, creatinine 1.72, glucose 152. LFTs mildly elevated. EKG shows sinus rhythm with a right bundle branch block and T wave inversion in the anterior and inferior leads. Troponins negative x 3. She currently remains in the emergency department, room 18. She is resting comfortably on the stretcher. She is on 6 L/min nasal cannula, SpO2 is 91%. Blood pressure is normotensive. Heart rate is 92 bpm. She is waiting for a bed on the cardiac stepdown unit. Patient was reevaluated today on 02/23/2024, she is feeling much better today compared to how she felt yesterday. Less cough less wheezing less shortness of breath, patient remains on heparin, her VQ scan came back intermediate probability, hence I am recommending that we continue anticoagulation therapy mostly based on her clinical history and based on the fact that she does have positive D-dimer. Patient is still having renal issues and we cannot perform a CT angiogram of the chest, I will transition the patient to Eliquis, and the issue of thromboembolic disease will be addressed down the line on outpatient basis. But for now I believe and I am strongly recommending that she remains on Eliquis. Her basic metabolic profile is normal BUN is 30 creatinine 1.45 CBC is relatively normal Reevaluate today on 02/24/2024, patient is improving, she has no active pulmonary symptoms, no cough no wheezing no shortness of breath. No chest pain. On 4 L nasal cannula with O2 saturation 92%. Patient was transitioned to Eliquis yesterday, she is off heparin. Procalcitonin level was noted to be normal on admission however she had relatively elevated BNP level. Echocardiogram showed LV dysfunction with ejection fraction of 40% patient was clearly noted to have significantly elevated right ventricular systolic pressure of 75 Objective - Vital Signs Vital signs: Vital Signs Temp 97.7 F 02/24/24 11:59 Pulse 108 H 02/24/24 12:57 Resp 22 02/24/24 11:59 BP 137/86 02/24/24 11:59 Pulse Ox 92 L 02/24/24 11:59 FiO2 Intake & Output 02/23/24 02/24/24 02/24/24 18:59 06:59 18:59 Intake Total 493.549 600 Output Total 1425 650 Balance -931.451 -650 600 Weight 61 kg Intake: Intake, IV Titration 253.549 600 Amount Heparin Sod,Pork in 0.45% 253.549 NaCl 25,000 unit In 0.45 % NaCl 1 250ml.bag @ 18 UNITS/KG/HR 11.186 mls/hr IV .[id number] [facility] Rx#: [id number] Sodium Chloride 0.9% 1, 600 000 ml @ 75 mls/hr IV . [id number] [facility] Rx#:[id number] Oral 240 Output: Urine 1425 650 Other: Voiding Method Bedside Commode Bedside Commode Bedside Commode # Voids 3 - Exam GENERAL EXAM: Alert, 83-year-old white female, on 4 L nasal cannula, O2 saturation 92% HEAD: Normocephalic and atraumatic EYES: Normal reaction of pupils, equal size. NOSE: Clear with pink turbinates. THROAT: No erythema or exudates. NECK: No masses, no JVD. CHEST: No chest wall deformity. LUNGS: Diminished breath sound bilaterally no crackles rhonchi or wheezes CVS: S1 and S2 normal with no audible murmur, regular rhythm. No extra heart sounds ABDOMEN: No hepatosplenomegaly, active bowel sounds, no guarding or rigidity. SKIN: No rashes CENTRAL NERVOUS SYSTEM: Alert and oriented x 3 no gross focal deficit EXTREMITIES: No clubbing edema or cyanosis - Labs CBC & Chem 7: 02/23/24 06:41 02/23/24 06:41 Labs: Abnormal Lab Results - Last 24 Hours (Table) 02/23/24 02/23/24 02/24/24 Range/Units 16:14 20:20 06:07 POC Glucose (mg/dL) 228 H 244 H 195 H (70-110) mg/dL 02/24/24 Range/Units 11:34 POC Glucose (mg/dL) 203 H (70-110) mg/dL Microbiology - Last 24 Hours (Table) 02/21/24 16:48 Blood Culture - Preliminary Blood 02/21/24 16:22 Blood Culture - Preliminary Blood Assessment and Plan Assessment: Impression: Acute on chronic hypoxemic respiratory failure, multifactorial, I believe the patient has combination of acute asthma/COPD exacerbation and severe valvular heart disease. Possible thromboembolic disease/pulmonary embolism. Moderate oxygen dependent chronic obstructive pulmonary disease, with an FEV1 52% of predicted. Normally maintained on Trelegy maintenance inhaler, albuterol nebs, as well as as needed albuterol rescue inhaler. Chronic hypoxemic respiratory failure, secondary to above, normally maintained on 2 to 3 L/min nasal cannula. Valvular heart disease, including severe mitral regurgitation and mild aortic regurgitation, and severe pulmonary hypertension LV dysfunction with ejection fraction of 40% Acute kidney injury, creatinine 1.72 Hyperkalemia, secondary to above Chronic hyponatremia Diabetes mellitus type 2, [id number] Remote history of tobacco dependence Recommendation: Continue bronchodilators. Continue oxygen and titrate accordingly Continue gentle diuresis Continue diuretics, Lasix 30 mg IV push daily Change IV fluid to KVO Change Solu-Medrol to prednisone 40 mg daily Continue anticoagulation therapy and transition to Eliquis for now. Her VQ scan is not truly diagnostic but indeterminate, and based on the clinical history I would rather keep the patient on anticoagulation therapy for now. Will continue to follow Time with Patient: Less than 30
[2024-02-24] MEDS: predniSONE 10 MG TAB PO SCH (16:15)
[2024-02-24 16:55] LABS: Glucose,Whole Blood 207 mg/dL (70-110)
[2024-02-24 20:53] LABS: Glucose,Whole Blood 225 mg/dL (70-110)
[2024-02-25 06:12] LABS: Glucose,Whole Blood 143 mg/dL (70-110)
[2024-02-25] MEDS ORDERED: ARTIFICIAL TEARS-HYPROMELLOSE DROPS 15 ML BTL BOTH EYES PRN (09:39)
[2024-02-25 10:15] LABS: HCT 35.2 % (34.0-46.0); HGB 10.6 gm/dL (11.4-16.0); Hypochromasia Moderate; MCH 27.4 pg (25.0-35.0); MCHC 30.1 g/dL (31.0-37.0); MCV 91.2 fL (80.0-100.0); Mean Platelet Volume 8.3; Platelet Count 246 k/uL (150-450); RBC 3.86 m/uL (3.80-5.40); RDW 14.5 % (11.5-15.5); WBC 10.5 k/uL (3.8-10.6)
[2024-02-25 10:21] LABS: ALT 56 U/L (4-34); AST 41 U/L (14-36); African American GFR (CKD) 48 (>60 ml/min/1.73 sqM); Albumin 4.1 g/dL (3.5-5.0); Alkaline Phosphatase 63 U/L (38-126); Anion Gap 9 mmol/L; Blood Urea Nitrogen 29 mg/dL (7-17); Carbon Dioxide 30 mmol/L (22-30); Chloride 94 mmol/L (98-107); Glucose 168 mg/dL (74-99); Non-African American GFR(CKD) 41 (>60 ml/min/1.73 sqM); Potassium 3.2 mmol/L (3.5-5.1); Sodium 133 mmol/L (137-145); Total Bilirubin 0.5 mg/dL (0.2-1.3); Total Protein 6.2 g/dL (6.3-8.2)
[2024-02-25 11:39] LABS: Glucose,Whole Blood 179 mg/dL (70-110)
[2024-02-25 11:45] VITALS: BP 136/68; PULSE 110; RESP 20; TEMP 97
--- NOTE | 2024-02-25 13:46 | P.DS ---
Providers Date of admission: 02/21/24 16:40 Expected date of discharge: 02/25/24 Attending physician: David Jay Consults: 02/21/24 15:16 Consult Physician Urgent Consulting Provider: Deepa Rebollar Consult Reason/Comments: Acute hypoxemic respiratory failure, COPD Do you want consulting provider notified?: Yes 02/22/24 10:02 Consult Physician Routine Consulting Provider: Lit Cox Consult Reason/Comments: Acute CHF Do you want consulting provider notified?: Yes Primary care physician: Senthil Angel [facility] Course: Discharge diagnoses; Acute on chronic hypoxemic respiratory failure Acute CHF exacerbation Acute COPD exacerbation Valvular heart disease, including severe mitral regurgitation and mild aortic regurgitation Elevated dimer, VQ scan showing intermediate probably for PE, possible thromboembolic disease Acute kidney injury, creatinine 1.72 Hypomagnesemia Hyponatremia Hyperkalemia Hypertension Hyperlipidemia Wqf-mecectg-jjatdqxcj diabetes mellitus History of tobacco addiction Hospital course; patient is a 83-year-old lady with past medical history significant for COPD, chronic hypoxic respiratory failure on 2 to 3 L of oxygen, CHF who presented to ER because of worsening shortness of breath for 1 week. Patient stated that she was all right 1 week back when he started noticing that she was getting more short of breath on exertion. Patient was only able to walk 2 steps before getting short of breath. Patient denied any chest pain. Patient was using her inhalers and breathing treatments much more frequently to keep her shortness of breathin check. Patient also complaining of chest pressure and wheezing. Denied any palpitation. There was no complaint of cough. Denied any swelling of feet. There was no complaint of nausea, vomiting or abdominal pain. There is no complaint of orthopnea or PND. Because of this worsening shortness of breath patient went to PCP office where she was found to be hypoxemic and was directed to come to the ER. Initial lab work done in the ER showed WBC 5.9, hemoglobin 9.6, platelet count 261, INR 1.2, D-dimer 1.52 sodium 123, potassium 5.6, BUN 39, creatinine 1.72, glucose 152, lactate 1.5 magnesium 1.2 EKG done in the ER showed heart rate of 82, no ST segment elevation or depression seen, T wave inversions seen in 1, aVL, V1 1 to V6 Chest x-ray done in the ER showed cardiomegaly with focal midlung opacities, right greater than left, consider multifocal pneumonia versus sequelae of CHF Patient admitted to internal medicine service 02/22. Patient seen and examined. VQ scan done showed intermediate probability for PE, pulmonology recommended keeping patient on pharmacy with heparin. Continues to be on 5 L of oxygen. Gets short of breath on exertion 02/23. Patient seen and examined. States she feels much better. Denies any shortness of breath at rest. Currently on 4 L of oxygen 02/24. Patient seen and examined. Currently on 4 L of oxygen. States she is doing better. Patient being discharged on Eliquis 10 mg twice a day for 7 days followed by 5-minute twice a day, patient's VQ scan was intermediate probability for PE and pulmonology recommended patient to be treated for thromboembolic disease as suspicion is high for PE, CTA chest could not be done because of patient's kidney functions. Being discharged on oral Lopressor for tachycardia. Outpatient follow-up with cardiology and pulmonology PHYSICAL EXAMINATION: GENERAL: The patient is alert and oriented x3, not in any acute distress. Chronically ill looking HEENT: Pupils are round and equally reacting to light. EOMI. No scleral icterus. No conjunctival pallor. Normocephalic, atraumatic. No pharyngeal erythema. No thyromegaly. CARDIOVASCULAR: S1 and S2 present. No murmurs, rubs, or gallops. PULMONARY: Coarse breath sound bilaterally, no wheezing or crackles. ABDOMEN: Soft, nontender, nondistended, normoactive bowel sounds. No palpable organomegaly. MUSCULOSKELETAL: No joint swelling or deformity. EXTREMITIES: No cyanosis, clubbing, or pedal edema. NEUROLOGICAL: Gross neurological examination did not reveal any focal deficits. SKIN: No rashes. Dictation was produced using [employer] dictation software. please excuse any grammatical, word or spelling errors. Patient Condition at Discharge: Good Plan - Discharge Summary New Discharge Prescriptions: New predniSONE 10 mg PO DAILY #12 tab Apixaban [Eliquis Starter Pack (for VTE)] 5 - 10 mg PO DIRECTED 30 Days #1 each Metoprolol Tartrate [Lopressor] 25 mg PO BID #30 tablet Continue Omeprazole [PriLOSEC] 20 mg PO DAILY Multivitamins, Thera [Multivitamin (formulary)] 1 tab PO DAILY metFORMIN HCL [Glucophage] 1,000 mg PO BID Albuterol Inhaler [Ventolin Hfa Inhaler] 1 - 2 puff INHALATION RT-Q6H PRN PRN Reason: ASTHMA SX Furosemide [Lasix] 40 mg PO Q48H #30 tab predniSONE 5 mg PO DAILY amLODIPine [Norvasc] 5 mg PO DAILY Albuterol Nebulized [Ventolin Nebulized] 2.5 mg INHALATION RT-QID Ubidecarenone [Coenzyme Q10] 200 mg PO DAILY Cyanocobalamin (Vitamin B-12) [Vitamin B-12] 1,000 mcg PO DAILY Cholecalciferol (Vitamin D3) [Vitamin D3 (50 Mcg = 2000 Iu)] 50 mcg PO DAILY Eye Itch Relief Drops 1 drop BOTH EYES Q4HR PRN PRN Reason: itchy eyes Alendronate Sodium 70 mg PO MO Calcium Carbonate [Calcium] 1,200 mg PO DAILY Ezetimibe [Zetia] 10 mg PO DAILY Fluticasone/Umeclidin/Vilanter [Trelegy Ellipta 100-62.5-25] 1 puff INHALATION RT-DAILY Ipratropium Nebulized [Atrovent Nebulized 0.2 MG/ML] 0.5 mg INHALATION RT-QID Losartan [Cozaar] 50 mg PO DAILY Lovastatin [Mevacor] 80 mg PO HS Vitamin E (Dl,Tocopheryl Acet) [Vitamin E (1000 Iu = 450 MG)] 450 mg PO DAILY Discharge Medication List Albuterol Inhaler [Ventolin Hfa Inhaler] 1 - 2 puff INHALATION RT-Q6H PRN 09/08/15 [History] Multivitamins, Thera [Multivitamin (formulary)] 1 tab PO DAILY 09/08/15 [History] Omeprazole [PriLOSEC] 20 mg PO DAILY 09/08/15 [History] metFORMIN HCL [Glucophage] 1,000 mg PO BID 09/08/15 [History] Furosemide [Lasix] 40 mg PO Q48H #30 tab 12/02/18 [Rx] amLODIPine [Norvasc] 5 mg PO DAILY 04/07/19 [History] predniSONE 5 mg PO DAILY 04/07/19 [History] Albuterol Nebulized [Ventolin Nebulized] 2.5 mg INHALATION RT-QID 02/21/24 [History] Alendronate Sodium 70 mg PO MO 02/21/24 [History] Calcium Carbonate [Calcium] 1,200 mg PO DAILY 02/21/24 [History] Cholecalciferol (Vitamin D3) [Vitamin D3 (50 Mcg = 2000 Iu)] 50 mcg PO DAILY 02/21/24 [History] Cyanocobalamin (Vitamin B-12) [Vitamin B-12] 1,000 mcg PO DAILY 02/21/24 [History] Eye Itch Relief Drops 1 drop BOTH EYES Q4HR PRN 02/21/24 [History] Ezetimibe [Zetia] 10 mg PO DAILY 02/21/24 [History] Fluticasone/Umeclidin/Vilanter [Trelegy Ellipta 100-62.5-25] 1 puff INHALATION RT-DAILY 02/21/24 [History] Ipratropium Nebulized [Atrovent Nebulized 0.2 MG/ML] 0.5 mg INHALATION RT-QID 02/21/24 [History] Losartan [Cozaar] 50 mg PO DAILY 02/21/24 [History] Lovastatin [Mevacor] 80 mg PO HS 02/21/24 [History] Ubidecarenone [Coenzyme Q10] 200 mg PO DAILY 02/21/24 [History] Vitamin E (Dl,Tocopheryl Acet) [Vitamin E (1000 Iu = 450 MG)] 450 mg PO DAILY 02/21/24 [History] Apixaban [Eliquis Starter Pack (for VTE)] 5 - 10 mg PO DIRECTED 30 Days #1 each 02/25/24 [Rx] Metoprolol Tartrate [Lopressor] 25 mg PO BID #30 tablet 02/25/24 [Rx] predniSONE 10 mg PO DAILY #12 tab 02/25/24 [Rx] Follow up Appointment(s)/Referral(s): Senthil Angel DO [Primary Care Provider] - 1-2 days Deepa Rebollar MD [STAFF PHYSICIAN] - 1 Week Krzysztof Chavarria MD [STAFF PHYSICIAN] - 1 Week Discharge Disposition: HOME SELF-CARE
--- NOTE | 2024-02-25 14:21 | P.PN ---
Subjective Progress Note Date: 02/25/24 Principal diagnosis: Acute on chronic hypoxic respiratory failure, multifactorial Patient is an 83-year-old female with past medical history significant for asthma/COPD, valvular heart disease, hyperlipidemia, hypertension, diabetes mellitus, and former tobacco smoker. Her primary care provider is Dr. Brittani Angel. She does follow in the pulmonary office with Dr. Rebollar for management of her moderate COPD. She has an FEV1 52% of predicted. She has a remote smoking history, quitting over 25 years ago. She is chronically oxygen dependent on 2 to 3 L at home. She is on Trelegy maintenance inhaler, albuterol nebs, as well as PRN albuterol rescue inhaler. She was just recently up north with her adult children, in the [place] area, approximately 2-hour drive from home. She states that she was severely more short of breath than her baseline dyspnea. States she could not walk more than a couple feet without troubles breathing. At that time, her chest felt tight and she had associated wheezing. Denies any fevers. Denies any cough or sputum production. Denies any hemoptysis. Denies any chest pain. She finally went to be evaluated by her primary care provider, was noted to be hypoxic in the office, and directed to the emergency room yesterday afternoon for evaluation. Chest x-ray on arrival demonstrated moderate cardiomegaly with focal midlung opacities right greater than left, which appeared to be chronic findings when compared to previous i maging. There are also new trace bilateral pleural effusions. NT proBNP was elevated at 42,000 on arrival. She does take Lasix 40 mg daily outpatient, and has not missed any doses. She is known to have severe valvular heart disease. Most recent available echocardiogram demonstrated a mild to moderately impaired left ventricular ejection fraction estimated at 40 to 45%. There was severe mitral regurgitation and mild aortic regurgitation. While in the emergency room, patient was started on IV heparin infusion per protocol. Her D-dimer was elevated at 1.52. Patient denies any lower extremity swelling or history of DVT. Denies any personal or familial history of any sort of blood clots. No recent surgical history or trauma. The patient is denies any chest pain, lightheadedness, or syncopal events. Current heart rhythm is normal sinus averaging around 90 to 100 bpm. She has apparently sustained acute kidney injury, and is unable to undergo chest CT angio protocol. Labs consist of a unremarkable CBC. No leukocytosis. BMP on arrival: Sodium 123, potassium 5.6, chloride 91, serum bicarb 22, BUN 39, creatinine 1.72, glucose 152. LFTs mildly elevated. EKG shows sinus rhythm with a right bundle branch block and T wave inversion in the anterior and inferior leads. Troponins negative x 3. She currently remains in the emergency department, room 18. She is resting comfortably on the stretcher. She is on 6 L/min nasal cannula, SpO2 is 91%. Blood pressure is normotensive. Heart rate is 92 bpm. She is waiting for a bed on the cardiac stepdown unit. Patient was reevaluated today on 02/23/2024, she is feeling much better today compared to how she felt yesterday. Less cough less wheezing less shortness of breath, patient remains on heparin, her VQ scan came back intermediate probability, hence I am recommending that we continue anticoagulation therapy mostly based on her clinical history and based on the fact that she does have positive D-dimer. Patient is still having renal issues and we cannot perform a CT angiogram of the chest, I will transition the patient to Eliquis, and the issue of thromboembolic disease will be addressed down the line on outpatient basis. But for now I believe and I am strongly recommending that she remains on Eliquis. Her basic metabolic profile is normal BUN is 30 creatinine 1.45 CBC is relatively normal Reevaluate today on 02/24/2024, patient is improving, she has no active pulmonary symptoms, no cough no wheezing no shortness of breath. No chest pain. On 4 L nasal cannula with O2 saturation 92%. Patient was transitioned to Eliquis yesterday, she is off heparin. Procalcitonin level was noted to be normal on admission however she had relatively elevated BNP level. Echocardiogram showed LV dysfunction with ejection fraction of 40% patient was clearly noted to have significantly elevated right ventricular systolic pressure of 75 Reevaluate today on 02/25/2024, patient is doing great, relatively asymptomatic, patient feels better than her baseline even, hardly any pulmonary symptoms no cough no wheezing no shortness of breath, hence I will clear the patient for discharge and to follow-up on outpatient basis. Objective - Vital Signs Vital signs: Vital Signs Temp 97.0 F L 02/25/24 11:21 Pulse 110 H 02/25/24 11:51 Resp 20 02/25/24 11:21 BP 136/68 02/25/24 11:21 Pulse Ox 90 L 02/25/24 11:21 FiO2 Intake & Output 02/24/24 02/25/24 02/25/24 18:59 06:59 18:59 Intake Total 1438 1020 Output Total 3025 500 1300 Balance -1587 -500 -280 Weight 61.3 kg Intake: Intake, IV Titration 600 Amount Sodium Chloride 0.9% 1, 600 000 ml @ 25 mls/hr IV . [facility] Rx#:[id number] Oral 838 1020 Output: Urine 3025 500 1300 Other: Voiding Method Bedside Commode Bedside Commode Bedside Commode - Exam GENERAL EXAM: Alert, 83-year-old white female, on 4 L nasal cannula, O2 saturation 92% HEAD: Normocephalic and atraumatic EYES: Normal reaction of pupils, equal size. NOSE: Clear with pink turbinates. THROAT: No erythema or exudates. NECK: No masses, no JVD. CHEST: No chest wall deformity. LUNGS: Clear breath sound bilaterally no rhonchi no wheezes CVS: S1 and S2 normal with no audible murmur, regular rhythm. No extra heart sounds ABDOMEN: No hepatosplenomegaly, active bowel sounds, no guarding or rigidity. SKIN: No rashes CENTRAL NERVOUS SYSTEM: Alert and oriented x 3 no gross focal deficit EXTREMITIES: No clubbing edema or cyanosis - Labs CBC & Chem 7: 02/25/24 09:46 02/25/24 09:46 Labs: Abnormal Lab Results - Last 24 Hours (Table) 02/24/24 02/24/24 02/25/24 Range/Units 16:52 20:52 06:11 Hgb (11.4-16.0) gm/dL MCHC (31.0-37.0) g/dL Sodium (137-145) mmol/L Potassium (3.5-5.1) mmol/L Chloride (98-107) mmol/L BUN (7-17) mg/dL Creatinine (0.52-1.04) mg/dL Glucose (74-99) mg/dL POC Glucose (mg/dL) 207 H 225 H 143 H (70-110) mg/dL Calcium (8.4-10.2) mg/dL AST (14-36) U/L ALT (4-34) U/L Total Protein (6.3-8.2) g/dL 02/25/24 02/25/24 02/25/24 Range/Units 09:46 09:46 11:38 Hgb 10.6 L (11.4-16.0) gm/dL MCHC 30.1 L (31.0-37.0) g/dL Sodium 133 L (137-145) mmol/L Potassium 3.2 L (3.5-5.1) mmol/L Chloride 94 L (98-107) mmol/L BUN 29 H (7-17) mg/dL Creatinine 1.22 H (0.52-1.04) mg/dL Glucose 168 H (74-99) mg/dL POC Glucose (mg/dL) 179 H (70-110) mg/dL Calcium 8.0 L (8.4-10.2) mg/dL AST 41 H (14-36) U/L ALT 56 H (4-34) U/L Total Protein 6.2 L (6.3-8.2) g/dL Microbiology - Last 24 Hours (Table) 02/21/24 16:48 Blood Culture - Preliminary Blood 02/21/24 16:22 Blood Culture - Preliminary Blood Assessment and Plan Assessment: Impression: Acute on chronic hypoxemic respiratory failure, multifactorial, I believe the patient has combination of acute asthma/COPD exacerbation and severe valvular heart disease. Possible thromboembolic disease/pulmonary embolism. Moderate oxygen dependent chronic obstructive pulmonary disease, with an FEV1 52% of predicted. Normally maintained on Trelegy maintenance inhaler, albuterol nebs, as well as as needed albuterol rescue inhaler. Chronic hypoxemic respiratory failure, secondary to above, normally maintained on 2 to 3 L/min nasal cannula. Valvular heart disease, including severe mitral regurgitation and mild aortic regurgitation, and severe pulmonary hypertension LV dysfunction with ejection fraction of 40% Acute kidney injury, creatinine 1.72 Hyperkalemia, secondary to above Chronic hyponatremia Diabetes mellitus type 2, [id number] Remote history of tobacco dependence Recommendation: Will clear the patient to be discharged home today Continue Eliquis Continue bronchodilators. Continue oxygen, patient has home O2. Continue Lasix on outpatient basis Change IV fluid to KVO Prednisone taper until discontinued over the next 2-week Time with Patient: Less than 30
[2024-02-26] MEDS ORDERED: CHOLECALCIFEROL 25 MCG (1000 IU) TABLET PO SCH (09:00)
[2024-02-26] MEDS ORDERED: EZETIMIBE 10 MG TAB PO SCH (09:00)
[2024-02-26] MEDS ORDERED: CYANOCOBALAMIN 500 MCG TAB PO SCH (09:00)
--- NOTE | 2024-02-27 15:50 | CDI ---
Documentation Clarification Form Date: 02/27/2024 03:28:33 PM From: Lorraine Tapia Admit Date: 02/21/2024 04:40:00 PM Patient Name: Shannon Tian Visit Number: [id number] Discharge Date: 02/25/2024 03:10:00 PM ATTENTION: The Clinical Documentation Specialists (CDI) and [facility] Coding Staff appreciate your assistance in clarifying documentation. Please respond to the clarification below the line at the bottom and electronically sign. The CDI & [facility] Coding staff will review the response and follow-up if needed. Please note: Queries are made part of the Legal Health Record. If you have any questions, please contact the author of this message via ITS. Dr. Charanjit Arenas Your patient has the documented diagnosis of unspecified acute CHF exacerbation 02/25/24 in the Discharge Summary. Additional information regarding the type of CHF is requested. History/Risk Factors: patient is an 83 year old female with a hx of COPD, chronic hypoxic respiratory failure, on 2-3L of oxygen, CHF, HTN, HLD, and GERD. Clinical Indicators: patient presented with worsening shortness of breath, could only walk 2 steps before becoming short of breath. Also complaining of chest pressure and wheezing. Was diagnosed with acute CHF exacerbation, acute on chronic hypoxic respiratory failure, and has a high probability of a PE. VS/Pulse OX: T: 98.0, Pulse 80, RR 20, BP 129/82, O2 on 4L 88 BNP: 00285 Echocardiogram Results: left ventricle size is normal with global decrease in contractility and estimated ejection fraction of about 40%. Right ventricle is enlarged there is evidence of pressure and volume overload with flattening of interventricular septum. There is an enlarged atria area to moderate to severe eccentric mitral regurgitation. Severe tricuspid regurgitation. Chest X Ray: Moderate cardiomegaly with focal mid lung opacities, right greater than left. Trace effusions. Consider multifocal pneumonia or sequela of CHF Treatment: IV Lasix, started on heparin and transitioned to eliquis In your professional opinion, can you please clarify the type of CHF if known? [ x ] Acute on Chronic Systolic Heart Failure (reduced EF) [ ] Acute on Chronic Diastolic Heart Failure (preserved EF) [ ] Other, please specify [ ] Unable to determine MTDD
== END 2024-02-25 15:10 | disposition home or self-care (01) | DRG 175 ==
LOC: EC 13:18 → 3SCARD 16:40
PROVIDERS: ADMIT Hospitalist; ATTEND Hospitalist
DX: I26.99 Other pulmonary embolism without acute cor pulmonale (principal); I50.23 Acute on chronic systolic (congestive) heart failure; J96.21 Acute and chronic respiratory failure with hypoxia; I13.0 Hypertensive heart and chronic kidney disease with heart failure and stage 1 through stage 4 chronic kidney disease, or unspecified chronic kidney disease; J44.1 Chronic obstructive pulmonary disease with (acute) exacerbation; N17.9 Acute kidney failure, unspecified; J45.901 Unspecified asthma with (acute) exacerbation; I45.2 Bifascicular block; E87.1 Hypo-osmolality and hyponatremia; E83.42 Hypomagnesemia; K21.9 Gastro-esophageal reflux disease without esophagitis; E78.5 Hyperlipidemia, unspecified; I45.10 Unspecified right bundle-branch block; N18.9 Chronic kidney disease, unspecified; I27.20 Pulmonary hypertension, unspecified; E87.5 Hyperkalemia; I34.0 Nonrheumatic mitral (valve) insufficiency; E11.22 Type 2 diabetes mellitus with diabetic chronic kidney disease; Z87.891 Personal history of nicotine dependence; Z99.81 Dependence on supplemental oxygen; Z79.899 Other long term (current) drug therapy; Z79.84 Long term (current) use of oral hypoglycemic drugs; Z88.6 Allergy status to analgesic agent; Z88.0 Allergy status to penicillin; Z91.040 Latex allergy status
CPT/HCPCS: 36415; 71046; 78582; 80053; 83605; 83735; 83880; 84145; 84484; 85025; 85027; 85379; 85610; 85730; 87040; 93005; 93306; 93970; 94640; 94760; 96361; 96365; 96366; 96367; 96368; 96375; 96376; 99285

== ENCOUNTER 2024-03-02 19:11 | Inpatient (IN) | payer MEDICARE ==
[2024-03-02] MEDS: DEXTROSE 50% SYRINGE 50 ML IVP STA (19:15)
[2024-03-02 19:16] LABS: Glucose,Whole Blood 29 mg/dL (70-110)
[2024-03-02] MEDS: NOREPINEPHRINE 8 MG in SODIUM CHLORIDE 0.9% 250 ML IV ONE (19:16)
[2024-03-02] MEDS: ETOMIDATE 2 MG/ML 10 ML VIAL IVP STA (19:17)
[2024-03-02 19:27] LABS: Glucose,Whole Blood 52 mg/dL (70-110)
[2024-03-02] MEDS ORDERED: NOREPINEPHRINE 32 MG in SODIUM CHLORIDE 0.9% 218 ML IV ONE (19:29)
[2024-03-02 19:41] LABS: Glucose,Whole Blood 150 mg/dL (70-110)
[2024-03-02 19:48] LABS: Glucose,Whole Blood 151 mg/dL (70-110)
[2024-03-02] MEDS ORDERED: IPRATROPIUM-ALBUTEROL 3 ML NEB INHALATION STA (19:48)
[2024-03-02] MEDS ORDERED: VANCOMYCIN IV PER PHARMACY 1 EACH MISC MISCELLANE PRN (19:50)
[2024-03-02] MEDS ORDERED: IPRATROPIUM-ALBUTEROL 3 ML NEB INHALATION PRN (19:55)
[2024-03-02] MEDS ORDERED: PNEUMONIA PROTOCOL UTILIZED 1 EACH MISC PO PRN (19:55)
[2024-03-02 20:03] LABS: Glucose,Whole Blood 246 mg/dL (70-110)
[2024-03-02 20:06] LABS: Glucose,Whole Blood 189 mg/dL (70-110)
[2024-03-02] MEDS: VANCOMYCIN 1,000 MG in SODIUM CHLORIDE 0.9% 250 ML IVPB SCH (20:07)
[2024-03-02 20:09] LABS: Albumin 2.2 g/dL (3.5-5.0); Alkaline Phosphatase 154 U/L (38-126); Anion Gap 27 mmol/L; Blood Urea Nitrogen 73 mg/dL (7-17); Calcium 7.1 mg/dL (8.4-10.2); Chloride 92 mmol/L (98-107); Glucose 161 mg/dL (74-99); Potassium 5.7 mmol/L (3.5-5.1); Sodium 127 mmol/L (137-145); Total Bilirubin 1.7 mg/dL (0.2-1.3); Total Protein 3.9 g/dL (6.3-8.2)
[2024-03-02 20:15] LABS: African American GFR (CKD) 15 (>60 ml/min/1.73 sqM); Non-African American GFR(CKD) 13 (>60 ml/min/1.73 sqM)
[2024-03-02 20:16] LABS: ABG PCO2 50 mmHg (35-45); Allen Test Performed? Yes
[2024-03-02 20:17] LABS: ABG HCO3 9 mmol/L (21-25); ABG PO2 138 mmHg (83-108); ABG TCO2 11 mmol/L (19-24)
[2024-03-02 20:23] LABS: NT-Pro-B-Type Natriuretic Pept 24000 pg/mL
[2024-03-02 20:26] LABS: Lactic Acid, Venous 13.8 mmol/L (0.7-2.0)
[2024-03-02 20:27] LABS: Carbon Dioxide 8 mmol/L (22-30)
[2024-03-02 20:28] LABS: Partial Thromboplastin Time 36.3 sec (22.0-30.0); Prothrombin Time 60.6 sec (10.0-12.5)
[2024-03-02 20:34] LABS: ALT 3175 U/L (4-34); AST 2430 U/L (14-36)
[2024-03-02] MEDS ORDERED: SODIUM ZIRCONIUM CYCLOSILICATE 10 GM PACKET PO ONE (20:52)
[2024-03-02] MEDS: DEXTROSE 5% IN WATER 1,000 ML with SODIUM BICARB (1 MEQ/ML) 150 ML IV SCH (20:55)
[2024-03-02] MEDS: SODIUM BICARB 8.4% 50 ML SYR (1 MEQ/ML) IV STA (20:56)
--- NOTE | 2024-03-02 20:56 | CT ---
EXAMINATION TYPE: CT brain wo con CT DLP: 1209.9 mGycm, Automated exposure control for dose reduction was used. DATE OF EXAM: 03/02/2024 8:44 PM COMPARISON: None.. CLINICAL INDICATION:Female, 83 years old with history of Altered mental status, ams. TECHNIQUE: Brain: Axial CT images of the brain were obtained with coronal and sagittal reformats created and rev iewed. Contrast used: None. Oral contrast used: None. FINDINGS: Brain: Extra-axial spaces: No abnormal extra-axial fluid collections. Ventricular system: Dilatation in proportion to cerebral atrophy. Cerebral parenchyma: Cerebral atrophy. No acute intraparenchymal hemorrhage or mass effect. The fabian -white junction is well differentiated. Scattered hypoattenuating areas are seen within the white mat ter. Cerebellum: Unremarkable. Mass effect: No evidence of midline shift. Intracranial vasculature: unremarkable Soft tissues: Normal. Calvarium/osseous structures: No depressed skull fracture. Paranasal sinuses and mastoid air cells: Mild scattered paranasal sinus disease. Visualized orbits: Bilateral aphakia IMPRESSION: 1. No acute intracranial process. 2. Nonspecific white matter changes, likely secondary to chronic small vessel ischemic disease.
[2024-03-02] MEDS: SODIUM CHLORIDE 0.9% 2,000 ML IV ONE (20:57)
[2024-03-02] MEDS: ROCURONIUM 10 MG/ML (5 ML VIAL) IV STA (20:59)
--- NOTE | 2024-03-02 21:00 | ED ---
General Adult HPI - General Source: family, EMS, RN notes reviewed, old records reviewed Mode of arrival: EMS <Goldy Crain - Last Filed: 03/03/24 16:20> <Deirdre Jain - Last Filed: 03/03/24 22:30> - General Chief complaint: Cardiac Arrest/CPR Stated complaint: Cardiac Arrest Time Seen by Provider: 03/02/24 19:12 - History of Present Illness Initial comments: Patient is an 83-year-old female who presents emergency department status post cardiac arrest. Had a witnessed arrest at home in front of EMS. EMS was called for weakness. Has been having increased shortness of breath for the last few days. Patient has a history of COPD, CHF, diabetes, hypertension and possible blood clot on her lung. Has been on Eliquis. Apparently patient has been feeling more weak and increased shortness of breath for few days. When EMS arrived, they were talking the patient when she stared off and went pulseless and unresponsive. Total downtime was approximately 10 to 11 minutes. Patient received 2 rounds of epinephrine. No other medications administered. LMA was placed by EMS. Was brought to the emergency department for further evaluation. History a collection of history from patient's daughter, , as well as EMS. (Goldy Crain) - Related Data Home Medications Medication Instructions Recorded Confirmed Albuterol Inhaler [Ventolin Hfa 1 - 2 puff INHALATION RT-Q6H PRN 09/08/15 03/02/24 Inhaler] Multivitamins, Thera [Multivitamin 1 tab PO DAILY 09/08/15 03/02/24 (formulary)] Omeprazole [PriLOSEC] 20 mg PO DAILY 09/08/15 03/02/24 metFORMIN HCL [Glucophage] 1,000 mg PO BID 09/08/15 03/02/24 amLODIPine [Norvasc] 5 mg PO DAILY 04/07/19 03/02/24 predniSONE 5 mg PO DIRECTED 04/07/19 03/02/24 Albuterol Nebulized [Ventolin 2.5 mg INHALATION RT-QID 02/21/24 03/02/24 Nebulized] Alendronate Sodium 70 mg PO MO 02/21/24 03/02/24 Calcium Carbonate [Calcium] 1,200 mg PO DAILY 02/21/24 03/02/24 Cholecalciferol (Vitamin D3) 50 mcg PO DAILY 02/21/24 03/02/24 [Vitamin D3 (50 Mcg = 2000 Iu)] Cyanocobalamin (Vitamin B-12) 1,000 mcg PO DAILY 02/21/24 03/02/24 [Vitamin B-12] Eye Itch Relief Drops 1 drop BOTH EYES Q4HR PRN 02/21/24 03/02/24 Ezetimibe [Zetia] 10 mg PO DAILY 02/21/24 03/02/24 Fluticasone/Umeclidin/Vilanter 1 puff INHALATION RT-DAILY 02/21/24 03/02/24 [Trelegy Ellipta 100-62.5-25] Ipratropium Nebulized [Atrovent 0.5 mg INHALATION RT-QID 02/21/24 03/02/24 Nebulized 0.2 MG/ML] Losartan [Cozaar] 50 mg PO DAILY 02/21/24 03/02/24 Lovastatin [Mevacor] 80 mg PO HS 02/21/24 03/02/24 Ubidecarenone [Coenzyme Q10] 200 mg PO DAILY 02/21/24 03/02/24 Vitamin E (Dl,Tocopheryl Acet) 450 mg PO DAILY 02/21/24 03/02/24 [Vitamin E (1000 Iu = 450 MG)] Apixaban [Eliquis] See Taper PO BID 03/02/24 03/02/24 predniSONE See Taper PO DAILY 03/02/24 03/02/24 Previous Rx's Medication Instructions Recorded Furosemide [Lasix] 40 mg PO Q48H #30 tab 12/02/18 Metoprolol Tartrate [Lopressor] 25 mg PO BID #30 tablet 02/25/24 Allergies Allergy/AdvReac Type Severity Reaction Status Date / Time aspirin Allergy Rash/Hives Verified 03/02/24 20:50 latex Allergy Rash/Hives Verified 03/02/24 20:50 Penicillins Allergy Unknown Verified 03/02/24 20:50 Childhood venom-honey bee Allergy Dyspnea, Verified 03/02/24 20:50 [bee venom (honey bee)] HIVES Review of Systems ROS Other: All systems not noted in ROS Statement are negative. <Goldy Crain - Last Filed: 03/03/24 16:20> ROS Other: All systems not noted in ROS Statement are negative. <Deirdre Jain - Last Filed: 03/03/24 22:30> ROS Statement: Those systems with pertinent positive or pertinent negative responses have been documented in the HPI. Past Medical History Past Medical History: Asthma, COPD, Diabetes Mellitus, Eye Disorder, GERD/Reflux, Hyperlipidemia, Hypertension Additional Past Medical History / Comment(s): leaking heart valve History of Any Multi-Drug Resistant Organisms: None Reported Past Surgical History: Breast Surgery Additional Past Surgical History / Comment(s): EXC LT BREAST LUMP. COLONOSCOPY, EGD. Past Anesthesia/Blood Transfusion Reactions: No Reported Reaction Past Psychological History: No Psychological Hx Reported Smoking Status: Former smoker Past Alcohol Use History: None Reported Past Drug Use History: None Reported - Past Family History Mother Sister(s) Family Medical History: Cancer <Goldy Crain - Last Filed: 03/03/24 16:20> General Exam <Goldy Crain - Last Filed: 03/03/24 16:20> - General Exam Comments Initial Comments: General: Cool to touch, unresponsive. HEAD: Normal with no signs of head trauma. EYES: Pupils are fixed, 1 to 2 mm in size. Somewhat responsive to light. ENT: Trachea midline. RESPIRATORY: Coarse breath sounds bilaterally. LMA in place. Hypoxia. C/V: Regular rate and rhythm. Peripheral pulses are 1+ bilaterally. S1 and S2 auscultated. Hypotensive. ABD: Abd is soft, nontender, nondistended. Brown stool. EXT: No obvious deformities SKIN: Bruising on bilateral forearms likely from prior IV sticks. NEURO: Unresponsive (Goldy Crain) Course Vital Signs 03/02/24 03/02/24 03/02/24 19:15 19:22 19:29 Temperature Pulse Rate 75 Respiratory 15 Rate Blood Pressure 81/57 103/51 O2 Sat by Pulse 91 L Oximetry Fraction of 100 Inspired Oxygen (FIO2) 03/02/24 03/02/24 03/02/24 20:05 20:06 20:09 Temperature 32.3 F L Pulse Rate 66 66 Respiratory 15 20 Rate Blood Pressure 98/60 92/56 O2 Sat by Pulse 95 96 Oximetry Fraction of 100 Inspired Oxygen (FIO2) 03/02/24 03/02/24 03/02/24 20:10 20:20 20:40 Temperature Pulse Rate 65 62 60 Respiratory 20 20 20 Rate Blood Pressure 92/56 88/52 88/52 O2 Sat by Pulse 96 93 L 93 L Oximetry Fraction of Inspired Oxygen (FIO2) 03/02/24 03/02/24 03/02/24 20:49 20:50 21:00 Temperature Pulse Rate 59 L 61 Respiratory 20 20 Rate Blood Pressure 96/54 98/56 O2 Sat by Pulse 93 L 90 L Oximetry Fraction of 80 Inspired Oxygen (FIO2) 03/02/24 03/02/24 03/02/24 21:07 21:10 21:11 Temperature Pulse Rate 62 62 Respiratory 20 20 Rate Blood Pressure 82/51 79/47 77/49 O2 Sat by Pulse 94 L 94 L Oximetry Fraction of Inspired Oxygen (FIO2) 03/02/24 03/02/24 03/02/24 21:13 21:15 21:19 Temperature 32.0 F L 32.0 F L Pulse Rate 62 62 62 Respiratory 20 20 20 Rate Blood Pressure 85/45 85/45 90/51 O2 Sat by Pulse 93 L 93 L 91 L Oximetry Fraction of Inspired Oxygen (FIO2) 03/02/24 03/02/24 03/02/24 21:20 21:21 21:25 Temperature 32.0 F L Pulse Rate 62 62 61 Respiratory 20 20 20 Rate Blood Pressure 90/51 92/53 92/53 O2 Sat by Pulse 91 L 91 L 90 L Oximetry Fraction of Inspired Oxygen (FIO2) 03/02/24 03/02/24 03/02/24 21:30 21:35 21:40 Temperature Pulse Rate 61 60 60 Respiratory 20 21 20 Rate Blood Pressure 90/70 89/52 103/50 O2 Sat by Pulse 90 L 90 L 90 L Oximetry Fraction of Inspired Oxygen (FIO2) 03/02/24 03/02/24 03/02/24 21:45 21:50 22:00 Temperature Pulse Rate 60 61 60 Respiratory 19 20 19 Rate Blood Pressure 106/60 104/57 101/55 O2 Sat by Pulse 90 L 90 L 87 L Oximetry Fraction of Inspired Oxygen (FIO2) 03/02/24 03/02/24 03/02/24 22:10 22:14 22:20 Temperature Pulse Rate 61 62 Respiratory 20 20 Rate Blood Pressure 99/53 98/49 O2 Sat by Pulse 85 L 88 L Oximetry Fraction of 100 Inspired Oxygen (FIO2) 03/02/24 03/02/24 03/02/24 22:30 22:40 22:50 Temperature 32.3 F L Pulse Rate 63 62 64 Respiratory 12 20 19 Rate Blood Pressure 95/58 94/75 124/76 O2 Sat by Pulse 88 L 87 L 87 L Oximetry Fraction of Inspired Oxygen (FIO2) Procedures - [place] Protocol (Time Out) Nurse: Hemalatha Melton - Central Line Placement Left Femoral Consent Obtained: emergent situation Patient Placed on Monitor/Pulse Ox: Yes MD Prep: mask, gown, gloves Central Line Prep: Chlorhexidine scrub, sterile drapes applied Local Anesthesia Used: Lidocaine 1% Amount of Anesthesia Used (mls): 3 Ultrasound Used for Placement: Yes Central Line Lumen Inserted: triple Bloods Obtained for Lab: Yes Central Line Position: good blood return, all ports aspirated, flushed, capped, sutured in place with nylon Dressing Applied: Tegaderm Patient Tolerated Procedure: well Complications: none - Intubation Sedative: Etomidate Mg Given: 5 Paralytic: Rocuronium Mg Given: 50 Laryngoscope: other (Glidescope) Size: 4 ET Tube Size: 7.5 Tube Secured Depth (cm): 25 Tube Secured Location: lips Tube Placement Confirmation: visualized tube passing through cords, no breath sounds over epigastrium, confirmation by capnometry Patient Tolerated Procedure: well Intubation Complications: other (Right mainstem intubation. ET tube was withdrawn multiple times until in satisfactory place.) - Sepsis Sepsis Focused Exam #1 Time Sepsis Criteria Met: 19:48 Sepsis Focused Exam Date: 03/02/24 Sepsis Focused Exam Time: 22:21 Sepsis Focused Exam Complete: Yes Vital Signs & RN Notes Reviewed: Yes Capillary Refill: < 2 Seconds: Fingers, Toes Peripheral Pulses: Weak: Radial (R), Radial (L) Skin Color: Normal for Patient Respiratory Exam: other (Coarse breath sounds) Cardiovascular Exam: regular rate, normal rhythm <Goldy Crain - Last Filed: 03/03/24 16:20> Medical Decision Making - Lab Data Result diagrams: 03/02/24 21:35 03/02/24 19:30 - EKG Data -: EKG Interpreted by Me <Goldy Crain - Last Filed: 03/03/24 16:20> - Lab Data Result diagrams: 03/02/24 21:35 03/02/24 19:30 <Deirdre Jain - Last Filed: 03/03/24 22:30> - Medical Decision Making Was pt. sent in by a medical professional or institution (, PA, HOME BASED ASSISTANT, urgent care, hospital, or skilled nursing...) When possible be specific @ -No Did you speak to anyone other than the patient for history (EMS, parent, family, police, friend...)? What history was obtained from this source @ -Spoke with patient's daughter, who provided patient's recent past medical history consisting of feeling weak and short of breath for the last 1 to 2 days at home. Has been having increased weakness with decreased oral intake at home. They were present when the cardiac arrest occurred in front of EMS. Did you review nursing and triage notes (agree or disagree)? Why? @ -I reviewed and agree with nursing and triage notes Were old charts reviewed (outside hosp., previous admission, EMS record, old EKG, old radiological studies, urgent care reports/EKG's, skilled nursing records)? Report findings @ -Chart reviewed including prior EKG which shows no obvious acute dynamic changes from January 2024 when patient was admitted to our facility. At that time patient was also diagnosed with intermediate probability of PE and was started on Eliquis. Eventually was discharged home. Patient had poor kidney function at that time. Differential Diagnosis (chest pain, altered mental status, abdominal pain women, abdominal pain men, vaginal bleeding, weakness, fever, dyspnea, syncope, headache, dizziness, GI bleed, back pain, seizure, CVA, palpatations, mental health, musculoskeletal)? @ -Cardiac arrest, septic shock, cardiogenic shock, hypovolemic shock, COPD, hyperkalemia, pulmonary embolism, intracranial injury. This list is not all inclusive. EKG interpreted by me (3pts min.). @ -As above X-rays interpreted by me (1pt min.). @ -Multiple chest x-rays obtained after NG tube placed as well as ET tube plac ement. Appear to be satisfactory on the most recent ET tube however NG tube appears to coil back on itself and will be removed and replaced.Chest x-ray does show multifocal airspace opacities concerning for possible pneumonia. CT interpreted by me (1pt min.). @ -CT brain revealed no obvious acute intracranial process.CT chest abdomen pelvis reveals multiple rib fractures likely secondary to CPR. No other significant findings at this time. Rectal thermometer probe was seen. NG tube was still in place during times of CT imaging but it has since been removed. U/S interpreted by me (1pt. min.). @ -None done What testing was considered but not performed or refused? (CT, X-rays, U/S, labs)? Why? @ -CT with contrast considered however patient has poor kidney function. What meds were considered but not given or refused? Why? @ -None Did you discuss the management of the patient with other professionals (professionals i.e. DrOlive, PA, HOME BASED ASSISTANT, lab, RT, psych nurse, social sciences chair, supervisor coin machine, teacher, officer lieutenant, employment evaluator/case manager)? Give summary @ -Discussed with Dr. Torres who accepted the patient to the ICU. Discussed with MISTY Moise of [facility] who accepted the admission. Was smoking cessation discussed for >3mins.? @ -No Was critical care preformed (if so, how long)? @ -Yes, 41 minutes. Were there social determinants of health that impacted care today? How? (Homelessness, low income, unemployed, alcoholism, drug addiction, transportation, low edu. Level, literacy, decrease access to med. care, long term, rehab)? @ -No Was there de-escalation of care discussed even if they declined (Discuss DNR or withdrawal of care, Hospice)? DNR status @ -Discussed CODE STATUS with family. Apparently patient discussed DNR with previously. Unknown if there is formal paperwork. As patient is currently on life support and chest compressions were done by EMS in front of them, they would like the patient to remain full code at this time. I did inform them of the poor prognosis for the patient. They will discuss amongst themselves code status. What co-morbidities impacted this encounter? (DM, HTN, Smoking, COPD, CAD, Cancer, CVA, ARF, Chemo, Hep., AIDS, mental health diagnosis, sleep apnea, morbid obesity)? @ -Chronic hypoxic respiratory failure Was patient admitted / discharged? Hospital course, mention meds given and route, prescriptions, significant lab abnormalities, going to OR and other pertinent info. @ -Based on the patient's presentation physical exam patient presents status post cardiac arrest after ROSC was achieved. ACLS protocol followed. Second IV was obtained. Patient is placed on IV fluids. Patient was hypotensive and hypothermic. Peripheral Levophed started through IVs. Hypotension did improve. Rewarming measures were taken including Jose hugger and warm blankets. Patient was successfully intubated by myself after removal of the LMA. Administered etomidate small dose as well as rocuronium. Patient tolerated the procedure well however ET tube was placed right mainstem and was withdrawn until in adequate position. Left femoral central line placed by myself successfully. Levophed was continued. ABG returned remarkable for significant mixed respiratory as well as metabolic acidosis. Patient was placed on a bicarb drip at this time. EKG showed nonspecific T wave inversions which do's appear somewhat chronic. Patient will be rewarmed. Patient's blood pressure did improve on the Levophed. Saturations are improving as well. Chest x-ray did show pulmonary vascular congestion versus pneumonia.. Patient is empirically being treated for sepsis as well with empiric antibiotics vancomycin, cefepime, azithromycin. Sepsis criteria was met at 1950. Possible source is pneumonia but we will continue to observe. Blood cultures obtained and sent. On presentation patient was hypoglycemic and received a total of 2 A of D50. Hypoglycemia seems to have resolved. Fluid status will be continued to be monitored as patient does have a history of CHF. She did receive 2 fluid boluses 30 cc/kg and is currently on a bicarb maintenance drip. Laboratory studies returned remarkable for multiorgan failure with elevated LFTs, elevated INR of 6.2 as well as PT and APTT likely secondary to liver failure. Lactic acid is also elevated to 13.8. Troponin elevated 2.68. BNP is 24,000. Patient is hyponatremic at 127 and hyper kalemia 5.7. CBC was clotted and had to be redrawn. Renal function is poor.Patient's EKG does show a prolonged QTc and therefore patient was administered IV magnesium.Patient has a leukocytosis of 23. No anemia.the remainder of the CBC is still pending at this time of admission. Hyperkalemia treated with calcium. Will continue treatment of pneumonia with antibiotics as well as breathing treatments and steroids concerning the patient has a history of COPD. CT brain revealed no obvious acute intracranial process. CT chest abdomen pelvis reveals multiple rib fractures likely secondary to CPR. No other significant findings at this time. Rectal thermometer probe was seen. NG tube was still in place during times of CT imaging but it has since been removed. Updated the patient's family multiple times, and they expressed understanding of the poor prognosis. Would still like the patient to remain full code at this time. They understand poor prognosis. I spoke with Dr. Torres of the ICU who was in agreement with management and accepted the patient to the ICU. I spoke with Suma of [facility] who accepted the admission. Undiagnosed new problem with uncertain prognosis? @ -Yes Drug Therapy requiring intensive monitoring for toxicity (Heparin, Nitro, Insulin, Cardizem)? @ -No Were any procedures done? @ -Intubation, central line placement Diagnosis/symptom? @ -Cardiac arrest status post ROSC from undifferentiated shock, possible septic shock secondary to pneumonia requiring vasopressors and mechanical ventilation. Hypoxic respiratory failure. Multiorgan failure. Prolonged QTc.Hypoglycemia. elevated troponin, hypothermia.Multiple rib fractures from CPR Acute, or Chronic, or Acute on Chronic? @ -Acute Uncomplicated (without systemic symptoms) or Complicated (systemic symptoms)? @ -Complicated Side effects of treatment? @ -No Exacerbation, Progression, or Severe Exacerbation? @ -No Poses a threat to life or bodily function? How? (Chest pain, USA, ID, pneumonia, PE, COPD, DKA, ARF, appy, cholecystitis, CVA, Diverticulitis, Homicidal, Suicidal, threat to staff... and all critical care pts) @ -Yes, patient is in multiorgan failure, and is status postcardiac arrest and shock. Poor prognosis. (Goldy Crain) Patient was being transported stairs when she had a drop in her heart rate to 29. Patient was moved back into the trauma bay and was asystole. CPR was resumed she did receive 3 rounds with 2 epinephrines. Pulse check continue to demonstrate pulseless electrical activity. Family was brought down from the ICU waiting room where they asked for us to cease measures. Time of 23:41. Daughter and are at bedside. I did call the back [place] [id number]. Patient will be released to home (Deirdre Jain) - Lab Data Lab Results 03/02/24 03/02/24 03/02/24 Range/Units 19:15 19:26 19:30 WBC (3.8-10.6) k/uL RBC (3.80-5.40) m/uL Hgb (11.4-16.0) gm/dL Hct (34.0-46.0) % MCV (80.0-100.0) fL MCH (25.0-35.0) pg MCHC (31.0-37.0) g/dL RDW (11.5-15.5) % Plt Count (150-450) k/uL MPV Neutrophils % % Lymphocytes % % Monocytes % % Eosinophils % % Basophils % % Neutrophils # (1.3-7.7) k/uL Lymphocytes # (1.0-4.8) k/uL Monocytes # (0-1.0) k/uL Eosinophils # (0-0.7) k/uL Basophils # (0-0.2) k/uL Manual Slide Review Hypochromasia PT 60.6 H (10.0-12.5) sec INR 6.2 H* (<1.2) APTT 36.3 H (22.0-30.0) sec Sample Site ABG pH (7.35-7.45) ABG pCO2 (35-45) mmHg ABG pO2 (83-108) mmHg ABG HCO3 (21-25) mmol/L ABG Total CO2 (19-24) mmol/L ABG O2 Saturation (94-97) % ABG Base Excess mmol/L Clemente Test FiO2 % Sodium (137-145) mmol/L Potassium (3.5-5.1) mmol/L Chloride (98-107) mmol/L Carbon Dioxide (22-30) mmol/L Anion Gap mmol/L BUN (7-17) mg/dL Creatinine (0.52-1.04) mg/dL Est GFR (CKD-EPI)AfAm (>60 ml/min/1.73 sqM) Est GFR (CKD-EPI)NonAf (>60 ml/min/1.73 sqM) Glucose (74-99) mg/dL POC Glucose (mg/dL) 29 L* 52 L (70-110) mg/dL POC Glu Deck Molder KYLE Hock, Veto HockVeto Lactic Ac Sepsis Rflx Plasma Lactic Acid Raymundo (0.7-2.0) mmol/L Calcium (8.4-10.2) mg/dL Total Bilirubin (0.2-1.3) mg/dL AST (14-36) U/L ALT (4-34) U/L Alkaline Phosphatase (38-126) U/L Ammonia (<30) umol/L Troponin I (0.000-0.034) ng/mL NT-Pro-B Natriuret Pep pg/mL Total Protein (6.3-8.2) g/dL Albumin (3.5-5.0) g/dL Urine Color Urine Appearance (Clear) Urine pH (5.0-8.0) Ur Specific Cooper (1.001-1.035) Urine Protein (Negative) Urine Glucose (UA) (Negative) Urine Ketones (Negative) Urine Blood (Negative) Urine Nitrite (Negative) Urine Bilirubin (Negative) Urine Urobilinogen (<2.0) mg/dL Ur Leukocyte Esterase (Negative) Urine RBC (0-5) /hpf Urine WBC (0-5) /hpf Ur Squamous Epith Cells (0-4) /hpf Urine Bacteria (None) /hpf Hyaline Casts (0-2) /lpf Urine Mucus (None) /hpf Urine Opiates Screen (NotDetected) Ur Oxycodone Screen (NotDetected) Urine Methadone Screen (NotDetected) Ur Barbiturates Screen (NotDetected) U Tricyclic Antidepress (NotDetected) Ur Phencyclidine Scrn (NotDetected) Ur Amphetamines Screen (NotDetected) U Methamphetamines Scrn (NotDetected) U Benzodiazepines Scrn (NotDetected) Urine Cocaine Screen (NotDetected) U Marijuana (THC) Screen (NotDetected) Influenza Type A (PCR) (Not Detectd) Influenza Type B (PCR) (Not Detectd) Urine Legionella Ag (Negative) RSV (PCR) (Not Detectd) SARS-CoV-2 (PCR) (Not Detectd) 03/02/24 03/02/24 03/02/24 Range/Units 19:30 19:30 19:30 WBC (3.8-10.6) k/uL RBC (3.80-5.40) m/uL Hgb (11.4-16.0) gm/dL Hct (34.0-46.0) % MCV (80.0-100.0) fL MCH (25.0-35.0) pg MCHC (31.0-37.0) g/dL RDW (11.5-15.5) % Plt Count (150-450) k/uL MPV Neutrophils % % Lymphocytes % % Monocytes % % Eosinophils % % Basophils % % Neutrophils # (1.3-7.7) k/uL Lymphocytes # (1.0-4.8) k/uL Monocytes # (0-1.0) k/uL Eosinophils # (0-0.7) k/uL Basophils # (0-0.2) k/uL Manual Slide Review Hypochromasia PT (10.0-12.5) sec INR (<1.2) APTT (22.0-30.0) sec Sample Site ABG pH (7.35-7.45) ABG pCO2 (35-45) mmHg ABG pO2 (83-108) mmHg ABG HCO3 (21-25) mmol/L ABG Total CO2 (19-24) mmol/L ABG O2 Saturation (94-97) % ABG Base Excess mmol/L Clemente Test FiO2 % Sodium 127 L (137-145) mmol/L Potassium 5.7 H (3.5-5.1) mmol/L Chloride 92 L (98-107) mmol/L Carbon Dioxide 8 L* (22-30) mmol/L Anion Gap 27 mmol/L BUN 73 H (7-17) mg/dL Creatinine 3.12 H (0.52-1.04) mg/dL Est GFR (CKD-EPI)AfAm 15 (>60 ml/min/1.73 sqM) Est GFR (CKD-EPI)NonAf 13 (>60 ml/min/1.73 sqM) Glucose 161 H (74-99) mg/dL POC Glucose (mg/dL) (70-110) mg/dL POC Glu Deck Molder ID Lactic Ac Sepsis Rflx Plasma Lactic Acid Raymundo 13.8 H* (0.7-2.0) mmol/L Calcium 7.1 L (8.4-10.2) mg/dL Total Bilirubin 1.7 H (0.2-1.3) mg/dL AST 2430 H (14-36) U/L ALT 3175 H (4-34) U/L Alkaline Phosphatase 154 H (38-126) U/L Ammonia 127 H (<30) umol/L Troponin I 0.681 H* (0.000-0.034) ng/mL NT-Pro-B Natriuret Pep 77118 pg/mL Total Protein 3.9 L (6.3-8.2) g/dL Albumin 2.2 L (3.5-5.0) g/dL Urine Color Urine Appearance (Clear) Urine pH (5.0-8.0) Ur Specific Cooper (1.001-1.035) Urine Protein (Negative) Urine Glucose (UA) (Negative) Urine Ketones (Negative) Urine Blood (Negative) Urine Nitrite (Negative) Urine Bilirubin (Negative) Urine Urobilinogen (<2.0) mg/dL Ur Leukocyte Esterase (Negative) Urine RBC (0-5) /hpf Urine WBC (0-5) /hpf Ur Squamous Epith Cells (0-4) /hpf Urine Bacteria (None) /hpf Hyaline Casts (0-2) /lpf Urine Mucus (None) /hpf Urine Opiates Screen (NotDetected) Ur Oxycodone Screen (NotDetected) Urine Methadone Screen (NotDetected) Ur Barbiturates Screen (NotDetected) U Tricyclic Antidepress (NotDetected) Ur Phencyclidine Scrn (NotDetected) Ur Amphetamines Screen (NotDetected) U Methamphetamines Scrn (NotDetected) U Benzodiazepines Scrn (NotDetected) Urine Cocaine Screen (NotDetected) U Marijuana (THC) Screen (NotDetected) Influenza Type A (PCR) (Not Detectd) Influenza Type B (PCR) (Not Detectd) Urine Legionella Ag (Negative) RSV (PCR) (Not Detectd) SARS-CoV-2 (PCR) (Not Detectd) 03/02/24 03/02/24 03/02/24 Range/Units 19:40 19:46 19:54 WBC (3.8-10.6) k/uL RBC (3.80-5.40) m/uL Hgb (11.4-16.0) gm/dL Hct (34.0-46.0) % MCV (80.0-100.0) fL MCH (25.0-35.0) pg MCHC (31.0-37.0) g/dL RDW (11.5-15.5) % Plt Count (150-450) k/uL MPV Neutrophils % % Lymphocytes % % Monocytes % % Eosinophils % % Basophils % % Neutrophils # (1.3-7.7) k/uL Lymphocytes # (1.0-4.8) k/uL Monocytes # (0-1.0) k/uL Eosinophils # (0-0.7) k/uL Basophils # (0-0.2) k/uL Manual Slide Review Hypochromasia PT (10.0-12.5) sec INR (<1.2) APTT (22.0-30.0) sec Sample Site Right Radial ABG pH 6.90 L* (7.35-7.45) ABG pCO2 50 H (35-45) mmHg ABG pO2 138 H (83-108) mmHg ABG HCO3 9 L* (21-25) mmol/L ABG Total CO2 11 L (19-24) mmol/L ABG O2 Saturation 96.0 (94-97) % ABG Base Excess -23.0 mmol/L Clemente Test Yes FiO2 100 % Sodium (137-145) mmol/L Potassium (3.5-5.1) mmol/L Chloride (98-107) mmol/L Carbon Dioxide (22-30) mmol/L Anion Gap mmol/L BUN (7-17) mg/dL Creatinine (0.52-1.04) mg/dL Est GFR (CKD-EPI)AfAm (>60 ml/min/1.73 sqM) Est GFR (CKD-EPI)NonAf (>60 ml/min/1.73 sqM) Glucose (74-99) mg/dL POC Glucose (mg/dL) 150 H 151 H (70-110) mg/dL POC Glu Deck Molder KYLE Hock, Veto Hock, Veto Lactic Ac Sepsis Rflx Plasma Lactic Acid Raymundo (0.7-2.0) mmol/L Calcium (8.4-10.2) mg/dL Total Bilirubin (0.2-1.3) mg/dL AST (14-36) U/L ALT (4-34) U/L Alkaline Phosphatase (38-126) U/L Ammonia (<30) umol/L Troponin I (0.000-0.034) ng/mL NT-Pro-B Natriuret Pep pg/mL Total Protein (6.3-8.2) g/dL Albumin (3.5-5.0) g/dL Urine Color Urine Appearance (Clear) Urine pH (5.0-8.0) Ur Specific Cooper (1.001-1.035) Urine Protein (Negative) Urine Glucose (UA) (Negative) Urine Ketones (Negative) Urine Blood (Negative) Urine Nitrite (Negative) Urine Bilirubin (Negative) Urine Urobilinogen (<2.0) mg/dL Ur Leukocyte Esterase (Negative) Urine RBC (0-5) /hpf Urine WBC (0-5) /hpf Ur Squamous Epith Cells (0-4) /hpf Urine Bacteria (None) /hpf Hyaline Casts (0-2) /lpf Urine Mucus (None) /hpf Urine Opiates Screen (NotDetected) Ur Oxycodone Screen (NotDetected) Urine Methadone Screen (NotDetected) Ur Barbiturates Screen (NotDetected) U Tricyclic Antidepress (NotDetected) Ur Phencyclidine Scrn (NotDetected) Ur Amphetamines Screen (NotDetected) U Methamphetamines Scrn (NotDetected) U Benzodiazepines Scrn (NotDetected) Urine Cocaine Screen (NotDetected) U Marijuana (THC) Screen (NotDetected) Influenza Type A (PCR) (Not Detectd) Influenza Type B (PCR) (Not Detectd) Urine Legionella Ag (Negative) RSV (PCR) (Not Detectd) SARS-CoV-2 (PCR) (Not Detectd) 03/02/24 03/02/24 03/02/24 Range/Units 20:01 20:04 20:15 WBC (3.8-10.6) k/uL RBC (3.80-5.40) m/uL Hgb (11.4-16.0) gm/dL Hct (34.0-46.0) % MCV (80.0-100.0) fL MCH (25.0-35.0) pg MCHC (31.0-37.0) g/dL RDW (11.5-15.5) % Plt Count (150-450) k/uL MPV Neutrophils % % Lymphocytes % % Monocytes % % Eosinophils % % Basophils % % Neutrophils # (1.3-7.7) k/uL Lymphocytes # (1.0-4.8) k/uL Monocytes # (0-1.0) k/uL Eosinophils # (0-0.7) k/uL Basophils # (0-0.2) k/uL Manual Slide Review Hypochromasia PT (10.0-12.5) sec INR (<1.2) APTT (22.0-30.0) sec Sample Site ABG pH (7.35-7.45) ABG pCO2 (35-45) mmHg ABG pO2 (83-108) mmHg ABG HCO3 (21-25) mmol/L ABG Total CO2 (19-24) mmol/L ABG O2 Saturation (94-97) % ABG Base Excess mmol/L Clemente Test FiO2 % Sodium (137-145) mmol/L Potassium (3.5-5.1) mmol/L Chloride (98-107) mmol/L Carbon Dioxide (22-30) mmol/L Anion Gap mmol/L BUN (7-17) mg/dL Creatinine (0.52-1.04) mg/dL Est GFR (CKD-EPI)AfAm (>60 ml/min/1.73 sqM) Est GFR (CKD-EPI)NonAf (>60 ml/min/1.73 sqM) Glucose (74-99) mg/dL POC Glucose (mg/dL) 246 H 189 H (70-110) mg/dL POC Glu Deck Molder ID Rhezie, Emie Rhezie, Emie Lactic Ac Sepsis Rflx Plasma Lactic Acid Raymundo (0.7-2.0) mmol/L Calcium (8.4-10.2) mg/dL Total Bilirubin (0.2-1.3) mg/dL AST (14-36) U/L ALT (4-34) U/L Alkaline Phosphatase (38-126) U/L Ammonia (<30) umol/L Troponin I (0.000-0.034) ng/mL NT-Pro-B Natriuret Pep pg/mL Total Protein (6.3-8.2) g/dL Albumin (3.5-5.0) g/dL Urine Color Urine Appearance (Clear) Urine pH (5.0-8.0) Ur Specific Cooper (1.001-1.035) Urine Protein (Negative) Urine Glucose (UA) (Negative) Urine Ketones (Negative) Urine Blood (Negative) Urine Nitrite (Negative) Urine Bilirubin (Negative) Urine Urobilinogen (<2.0) mg/dL Ur Leukocyte Esterase (Negative) Urine RBC (0-5) /hpf Urine WBC (0-5) /hpf Ur Squamous Epith Cells (0-4) /hpf Urine Bacteria (None) /hpf Hyaline Casts (0-2) /lpf Urine Mucus (None) /hpf Urine Opiates Screen Not Detected (NotDetected) Ur Oxycodone Screen Not Detected (NotDetected) Urine Methadone Screen Not Detected (NotDetected) Ur Barbiturates Screen Not Detected (NotDetected) U Tricyclic Antidepress Not Detected (NotDetected) Ur Phencyclidine Scrn Not Detected (NotDetected) Ur Amphetamines Screen Not Detected (NotDetected) U Methamphetamines Scrn Not Detected (NotDetected) U Benzodiazepines Scrn Not Detected (NotDetected) Urine Cocaine Screen Not Detected (NotDetected) U Marijuana (THC) Screen Not Detected (NotDetected) Influenza Type A (PCR) (Not Detectd) Influenza Type B (PCR) (Not Detectd) Urine Legionella Ag (Negative) RSV (PCR) (Not Detectd) SARS-CoV-2 (PCR) (Not Detectd) 03/02/24 03/02/24 03/02/24 Range/Units 20:15 20:15 20:15 WBC (3.8-10.6) k/uL RBC (3.80-5.40) m/uL Hgb (11.4-16.0) gm/dL Hct (34.0-46.0) % MCV (80.0-100.0) fL MCH (25.0-35.0) pg MCHC (31.0-37.0) g/dL RDW (11.5-15.5) % Plt Count (150-450) k/uL MPV Neutrophils % % Lymphocytes % % Monocytes % % Eosinophils % % Basophils % % Neutrophils # (1.3-7.7) k/uL Lymphocytes # (1.0-4.8) k/uL Monocytes # (0-1.0) k/uL Eosinophils # (0-0.7) k/uL Basophils # (0-0.2) k/uL Manual Slide Review Hypochromasia PT (10.0-12.5) sec INR (<1.2) APTT (22.0-30.0) sec Sample Site ABG pH (7.35-7.45) ABG pCO2 (35-45) mmHg ABG pO2 (83-108) mmHg ABG HCO3 (21-25) mmol/L ABG Total CO2 (19-24) mmol/L ABG O2 Saturation (94-97) % ABG Base Excess mmol/L Clemente Test FiO2 % Sodium (137-145) mmol/L Potassium (3.5-5.1) mmol/L Chloride (98-107) mmol/L Carbon Dioxide (22-30) mmol/L Anion Gap mmol/L BUN (7-17) mg/dL Creatinine (0.52-1.04) mg/dL Est GFR (CKD-EPI)AfAm (>60 ml/min/1.73 sqM) Est GFR (CKD-EPI)NonAf (>60 ml/min/1.73 sqM) Glucose (74-99) mg/dL POC Glucose (mg/dL) (70-110) mg/dL POC Glu Deck Molder ID Lactic Ac Sepsis Rflx Plasma Lactic Acid Raymundo (0.7-2.0) mmol/L Calcium (8.4-10.2) mg/dL Total Bilirubin (0.2-1.3) mg/dL AST (14-36) U/L ALT (4-34) U/L Alkaline Phosphatase (38-126) U/L Ammonia (<30) umol/L Troponin I (0.000-0.034) ng/mL NT-Pro-B Natriuret Pep pg/mL Total Protein (6.3-8.2) g/dL Albumin (3.5-5.0) g/dL Urine Color Yellow Urine Appearance Cloudy H (Clear) Urine pH 5.5 (5.0-8.0) Ur Specific Cooper 1.013 (1.001-1.035) Urine Protein 1+ H (Negative) Urine Glucose (UA) Trace H (Negative) Urine Ketones Negative (Negative) Urine Blood Small H (Negative) Urine Nitrite Negative (Negative) Urine Bilirubin Negative (Negative) Urine Urobilinogen <2.0 (<2.0) mg/dL Ur Leukocyte Esterase Small H (Negative) Urine RBC 6 H (0-5) /hpf Urine WBC 21 H (0-5) /hpf Ur Squamous Epith Cells 1 (0-4) /hpf Urine Bacteria Rare H (None) /hpf Hyaline Casts 27 H (0-2) /lpf Urine Mucus Rare H (None) /hpf Urine Opiates Screen (NotDetected) Ur Oxycodone Screen (NotDetected) Urine Methadone Screen (NotDetected) Ur Barbiturates Screen (NotDetected) U Tricyclic Antidepress (NotDetected) Ur Phencyclidine Scrn (NotDetected) Ur Amphetamines Screen (NotDetected) U Methamphetamines Scrn (NotDetected) U Benzodiazepines Scrn (NotDetected) Urine Cocaine Screen (NotDetected) U Marijuana (THC) Screen (NotDetected) Influenza Type A (PCR) Not Detected (Not Detectd) Influenza Type B (PCR) Not Detected (Not Detectd) Urine Legionella Ag Negative (Negative) RSV (PCR) Not Detected (Not Detectd) SARS-CoV-2 (PCR) Not Detected (Not Detectd) 03/02/24 03/02/24 Range/Units 20:27 21:35 WBC 23.0 H (3.8-10.6) k/uL RBC 4.36 (3.80-5.40) m/uL Hgb 12.0 (11.4-16.0) gm/dL Hct 41.0 (34.0-46.0) % MCV 94.0 (80.0-100.0) fL MCH 27.4 (25.0-35.0) pg MCHC 29.2 L (31.0-37.0) g/dL RDW 14.8 (11.5-15.5) % Plt Count 57 L D (150-450) k/uL MPV 9.9 Neutrophils % 93 % Lymphocytes % 3 % Monocytes % 3 % Eosinophils % 0 % Basophils % 0 % Neutrophils # 21.3 H (1.3-7.7) k/uL Lymphocytes # 0.7 L (1.0-4.8) k/uL Monocytes # 0.7 (0-1.0) k/uL Eosinophils # 0.0 (0-0.7) k/uL Basophils # 0.1 (0-0.2) k/uL Manual Slide Review Performed Hypochromasia Marked PT (10.0-12.5) sec INR (<1.2) APTT (22.0-30.0) sec Sample Site ABG pH (7.35-7.45) ABG pCO2 (35-45) mmHg ABG pO2 (83-108) mmHg ABG HCO3 (21-25) mmol/L ABG Total CO2 (19-24) mmol/L ABG O2 Saturation (94-97) % ABG Base Excess mmol/L Clemente Test FiO2 % Sodium (137-145) mmol/L Potassium (3.5-5.1) mmol/L Chloride (98-107) mmol/L Carbon Dioxide (22-30) mmol/L Anion Gap mmol/L BUN (7-17) mg/dL Creatinine (0.52-1.04) mg/dL Est GFR (CKD-EPI)AfAm (>60 ml/min/1.73 sqM) Est GFR (CKD-EPI)NonAf (>60 ml/min/1.73 sqM) Glucose (74-99) mg/dL POC Glucose (mg/dL) (70-110) mg/dL POC Glu Deck Molder ID Lactic Ac Sepsis Rflx Y Plasma Lactic Acid Raymundo (0.7-2.0) mmol/L Calcium (8.4-10.2) mg/dL Total Bilirubin (0.2-1.3) mg/dL AST (14-36) U/L ALT (4-34) U/L Alkaline Phosphatase (38-126) U/L Ammonia (<30) umol/L Troponin I (0.000-0.034) ng/mL NT-Pro-B Natriuret Pep pg/mL Total Protein (6.3-8.2) g/dL Albumin (3.5-5.0) g/dL Urine Color Urine Appearance (Clear) Urine pH (5.0-8.0) Ur Specific Cooper (1.001-1.035) Urine Protein (Negative) Urine Glucose (UA) (Negative) Urine Ketones (Negative) Urine Blood (Negative) Urine Nitrite (Negative) Urine Bilirubin (Negative) Urine Urobilinogen (<2.0) mg/dL Ur Leukocyte Esterase (Negative) Urine RBC (0-5) /hpf Urine WBC (0-5) /hpf Ur Squamous Epith Cells (0-4) /hpf Urine Bacteria (None) /hpf Hyaline Casts (0-2) /lpf Urine Mucus (None) /hpf Urine Opiates Screen (NotDetected) Ur Oxycodone Screen (NotDetected) Urine Methadone Screen (NotDetected) Ur Barbiturates Screen (NotDetected) U Tricyclic Antidepress (NotDetected) Ur Phencyclidine Scrn (NotDetected) Ur Amphetamines Screen (NotDetected) U Methamphetamines Scrn (NotDetected) U Benzodiazepines Scrn (NotDetected) Urine Cocaine Screen (NotDetected) U Marijuana (THC) Screen (NotDetected) Influenza Type A (PCR) (Not Detectd) Influenza Type B (PCR) (Not Detectd) Urine Legionella Ag (Negative) RSV (PCR) (Not Detectd) SARS-CoV-2 (PCR) (Not Detectd) - EKG Data EKG Comments: 12-lead Electrocardiogram Interpretation Note EKG was reviewed and interpreted by myself. 12-lead ECG performed at 1932 is interpreted by me as revealing normal sinus rhythm at a rate of 72 beats per minute. Right axis deviation. Right bundle branch block present. VA interval is 178 ms, QRS duration is 190 ms, QTc is 598 ms. Patient has diffuse T wave inversions... R wave progression across the precordium was satisfactory.. (Goldy Crain) Critical Care Time Critical Care Time: Yes Total Critical Care Time: 41 <Goldy Crain - Last Filed: 03/03/24 16:20> Disposition Time of Disposition: 21:41 Preliminary Cause of : cardiopulmonary arrest <Goldy Crain - Last Filed: 03/03/24 16:20> <Deirdre Jain - Last Filed: 03/03/24 22:30> Clinical Impression: Cardiac arrest, Multiple organ failure, Acute respiratory failure, Supratherapeutic INR, COPD (chronic obstructive pulmonary disease), Shock, Hypoglycemia, Elevated troponin, Pneumonia, Hypothermia, Multiple rib fractures Disposition: Condition: Critical
[2024-03-02] MEDS: SODIUM BICARB 8.4% 50 ML SYR (1 MEQ/ML) IV ONE (21:01)
[2024-03-02] MEDS: methylPREDNISolone SOD SUCCI 125 MG/2 ML VIAL IV STA (21:02)
[2024-03-02] MEDS: SODIUM CHLORIDE 0.9% 1,000 ML IV ONE ×3 (21:10)
[2024-03-02] MEDS: PROPOFOL 10 MG/ML 20 ML VIAL IV ONE (21:10)
[2024-03-02] MEDS: CALCIUM GLUCONATE IN NACL 1 GM in SALINE 1 100ML.BAG IVPB ONE (21:20)
[2024-03-02 21:23] LABS: INR 6.2 (<1.2)
[2024-03-02] MEDS ORDERED: NALOXONE 0.4 MG/ML 1 ML VIAL IV PRN (21:40)
--- NOTE | 2024-03-02 21:40 | XR ---
EXAMINATION TYPE: XR chest 1V confirm line plcmt DATE OF EXAM: 03/02/2024 8:00 PM CLINICAL INDICATION:Female, 83 years old with history of ETT, NGT; PHH COMPARISON: Two-view chest x-ray 02/21/2024 TECHNIQUE: XR chest 1V confirm line plcmt Portable AP radiograph of the chest.. FINDINGS: 3 portable chest x-rays are obtained in succession. The study times do not necessarily match the stud y times on the images themselves. These images are labeled #1, #2, #3 by the [employer] technician, and therefor e this report assumes that is the correct order. NG tube: Initially on image #1 extends below the level of the corrina and then coils back on itself ov er the mid to inferior esophagus, ascending and extending into the left neck with the tip beyond the field of view. This appearance persists throughout all 3 exams. ET tube: Initial image #1 the tip projects near the origin of the right mainstem bronchus. This appea rs contracted on images #2 and #3, tip located approximately 3.3 cm above the corrina on the #3 image. Other structures: There is a curvilinear structure which appears to likely be a lead terminating over the right axillary region. Extrinsic breathing apparatus is present, can interfere with interpretati on. Heart and lungs: CM silhouette is mildly to moderately enlarged. Mediastinal contours are partially o bscured by the lung opacities. Multifocal consolidative opacities in both lungs, most prominently in the left lung apex and right mi d to lower lung zones, are present throughout. This has significantly worsened since 02/21/2024. There is possible mild left basilar infiltrate or atelectasis. No significant pleural effusion or evidence of pneumothorax. Bones: Mild/moderate degenerative changes. There is possibly a nondisplaced fracture of the right fir st rib, correlate for trauma history. No clearly acute bony abnormality is otherwise demonstrated. De generative changes of the spine with slight curvature. Degenerative changes in the shoulders. COMBINED IMPRESSION: (3 serial portable chest x-rays): 1. On the final image, ET tube appears in good position. 2. Persistently abnormal placement of the NG tube, coils back on itself over the mid to inferior eso phagus, ascending and extending into the left neck with the tip beyond the field of view. This necess itates removal and replacement. 3. CM silhouette is mildly to moderately enlarged. 4. Multifocal consolidative opacities in both lungs, likely represents multifocal pneumonia. Correla te clinically and follow-up to resolution. 5. Possible nondisplaced fracture of the right first rib, correlate for trauma history.
[2024-03-02 21:43] LABS: Appearance,Urine Cloudy (Clear); Bacteria,Urine Rare /hpf; Bilirubin,Urine Negative (Negative); Blood,Urine Small (Negative); Color,Urine Yellow; Glucose,Urine (UA) Trace (Negative); Hyaline Casts,Urine 27 /lpf (0-2); Ketones,Urine Negative (Negative); Leukocyte Esterase,Urine Small (Negative); Mucus,Urine Rare /hpf; Nitrite,Urine Negative (Negative); PH, Urine 5.5 (5.0-8.0); Protein,Urine 1+ (Negative); RBC,Urine 6 /hpf (0-5); Specific Gravity,Urine 1.013 (1.001-1.035); Squamous Epithelial Cell,Urine 1 /hpf (0-4); Urobilinogen,Urine <2.0 mg/dL (<2.0); WBC,Urine 21 /hpf (0-5)
[2024-03-02] MEDS: MAGNESIUM SULFATE-D5W PMX 1 GM in DEXTROSE/WATER 1 100ML.BAG IVPB SCH (21:46)
[2024-03-02 21:50] LABS: Amphetamine Screen,Urine Not Detected (NotDetected); Barbiturate Screen,Urine Not Detected (NotDetected); Benzodiazepines Screen,Urine Not Detected (NotDetected); Cocaine Screen,Urine Not Detected (NotDetected); Methadone Screen, Urine Not Detected (NotDetected); Opiate Screen,Urine Not Detected (NotDetected); Oxycodone Screen, Urine Not Detected (NotDetected); Phencyclidine Screen,Urine Not Detected (NotDetected); Tricyclic Antidepressant,Urine Not Detected (NotDetected); Urn Cannabinoid Scrn Not Detected (NotDetected)
[2024-03-02 21:57] LABS: Basophils # (A) 0.1 k/uL (0-0.2); Basophils % (A) 0 %; Eosinophils % (A) 0 %; Hypochromasia Marked; Lymphocytes # (A) 0.7 k/uL (1.0-4.8); Lymphocytes % (A) 3 %; MCH 27.4 pg (25.0-35.0); MCHC 29.2 g/dL (31.0-37.0); Mean Platelet Volume 9.9; Monocytes # (A) 0.7 k/uL (0-1.0); Monocytes % (A) 3 %; Neutrophils # (A) 21.3 k/uL (1.3-7.7); Neutrophils % (A) 93 %; RBC 4.36 m/uL (3.80-5.40); RDW 14.8 % (11.5-15.5)
[2024-03-02 22:34] VITALS: TEMP 32.3
[2024-03-02] MEDS: AZITHROMYCIN 500 MG in SODIUM CHLORIDE 0.9% 250 ML IVPB STA (22:35)
--- NOTE | 2024-03-02 22:42 | CT ---
EXAMINATION TYPE: CT ChestAbdPelvis wo con CT DLP: 613.7 mGycm, Automated exposure control for dose reduction was used. DATE OF EXAM: 03/02/2024 8:45 PM COMPARISON: Multiple same day chest x-rays CLINICAL INDICATION:Female, 83 years old with history of cardiac arrest; PHH, unresponsive TECHNIQUE: Multiple axial images of the chest, abdomen, and pelvis were obtained. Two-dimensional cor onal and sagittal reconstructions were obtained. Contrast used: mL of , Oral contrast used: without Oral Contrast FINDINGS: CHEST: Examination limited by lack of IV contrast. LINE/TUBES: ET tube terminates above the corrina in good position. NG tube is seen descending to the level of the mid to inferior esophagus before coiling back on itsel f and ascending, with its tip appearing to terminate near the posterior oropharynx on the grommet man view. These appearances are similar to the recent chest x-ray reports. LUNGS/ PLEURA: Severe bilateral pulmonary airspace opacities, with the most confluent consolidation s een in the left upper lobe, and right middle and lower lobes. Other areas of aerated lung also show i nfiltrates which are less dense. There seems to be a moderate size right and small to moderate size l eft pleural effusion, with likely some compressive atelectasis which is contributory. Nodules or mass es cannot be excluded in this setting. There is no pneumothorax evident. AIRWAY: Central airways are patent. There are air bronchograms in both lungs, more on the right, fart her distally. ET tube tip appears above the corrina in good position. LOWER NECK: Visualized thyroid is grossly unremarkable. There are some small foci of gas which appear s to be intravenous, likely introduced from recent venous access.. MEDIASTINUM: No mediastinal adenopathy hematoma identified.. HEART: Heart is moderately enlarged. Moderate coronary artery calcification and/or stents. No appreci able pericardial effusion. VASCULATURE: Moderate atherosclerotic calcifications of the aorta and branches. Ascending aorta is 3 .6 CM, descending is 2.6 CM. Aorta is considered mildly ectatic in its ascending segment. Pulmonary trunk measures 3.3 CM. Vessels otherwise not further assessed without contrast. SOFT TISSUES/LYMPH NODES: Mild body wall edema is suggested. No enlarged axillary nodes. MUSCULOSKELETAL: Generalized osteopenia. Moderate disc degeneration changes are present throughout th e visualized thoracolumbar spine. There are hypoplastic ribs at T1 bilaterally. Rudimentary lumbar L1 ribs are also noted. On the right, there are: nondisplaced fracture through the lateral right second rib, mildly displaced fractures of the anterolateral third through eighth ribs as well. Mildly displaced buckle fractures of the left third and third and fourth ribs. No clear evidence of acute sternal fracture. ABDOMEN PELVIS: ABDOMEN LIVER: Visualized portions are unremarkable GALLBLADDER AND BILE DUCTS: Gallbladder appears present and isoattenuating to the liver. Sludge could be present. PANCREAS: No acute inflammatory changes. Scattered calcifications could be related to chronic pancrea titis. SPLEEN: Unremarkable. ADRENAL GLANDS: Mildly thickened, this can be seen with hyperplasia.. KIDNEYS AND URETERS: No evidence of hydronephrosis, renal or ureteral calculus. Slightly increased at tenuation rounded nodular attenuation lesion in the mid upper pole right kidney. No ureteral stones o r hydronephrosis. PELVIS BLADDER: Decompressed with a Arrieta catheter balloon in its lumen. REPRODUCTIVE: Unremarkable. ABDOMEN & PELVIS STOMACH AND BOWEL: Stomach and small bowel are nondistended, there is no evidence of obstruction. Boy e sort of tubing is seen entering IN and coiling within the lumen of the rectum. Correlate clinically . Mild stool otherwise throughout the colon. There is no evidence of appendicitis. PERITONEUM/RETROPERITONEUM: No evidence of pneumoperitoneum or free fluid. VASCULATURE: Moderate atherosclerotic calcifications are present throughout the abdominal aorta and i ts branches. MUSCULOSKELETAL: See above LYMPH NODES: No enlarged nodes by CT size criteria. SOFT TISSUES/ABDOMINAL WALL: Mild body wall edema. OTHER: Left femoral approach venous catheter with its tip in the left common iliac vein. IMPRESSION: 1. The patient is reportedly post cardiac arrest. 2. Multiple rib fractures with various degrees of displacement, may be secondary to CPR. 3. Bilateral pleural effusions and extensive pulmonary opacities bilaterally, may in part be due to traumatic injury but edema and pneumonia are leading considerations. 4. No evidence of pneumothorax. 5. ET tube, Arrieta catheter, and left femoral central venous line appear in good position. 6. Persistently abnormally placed NG tube. This requires removal and replacement. 7. Some sort of tubing is seen entering IN and coiling within the lumen of the rectum. Correlate cli nically. 8. Mild body wall edema, can be seen with third spacing of fluids. 9. No clearly acute abnormality otherwise within the abdomen or pelvis.
[2024-03-02] MEDS ORDERED: NOREPINEPHRINE 32 MG in SODIUM CHLORIDE 0.9% 218 ML IV SCH (22:45)
[2024-03-02 22:51] LABS: Platelet Count 57 k/uL (150-450)
[2024-03-02 22:59] VITALS: BP 124/76; PULSE 64; RESP 19
[2024-03-02] MEDS ORDERED: EPINEPHrine 10 ML SYRINGE (0.1 MG/ML) ONE (23:33)
[2024-03-03] MEDS ORDERED: methylPREDNISolone SOD SUCCI 40 MG/ML 1 ML VIAL IV SCH
[2024-03-03] MEDS ORDERED: PANTOPRAZOLE 40 MG/10 ML VIAL IV SCH (09:00)
[2024-03-03] MEDS ORDERED: AZITHROMYCIN 500 MG in SODIUM CHLORIDE 0.9% 250 ML IVPB SCH (09:00)
[2024-03-03] MEDS ORDERED: CEFEPIME 2 GM in SODIUM CHLORIDE 0.9% 100 ML IVPB SCH (20:00)
--- NOTE | 2024-03-06 09:31 | P.HPIM ---
History of Present Illness H&P Date: 03/03/24 This is an 83 year old female with medical history of asthma, COPD, diabetes mellitus, acid reflux, hypertension, hyperlipidemia, valvular heart disease. Patient comes into the hospital in the evening of March 02 around 7pm secondary to a cardiac arrest. Patient was a witnessed arrest at home in front of the EMS they originally presented to the house for weakness. Family reports that this patient has been having increased shortness of breath over the last few days. Patient has been on Eliquis for a pulmonary embolism. Patient was talking to EMS when they arrived and then she stared off and went pulseless and unresponsive. Downtime was about 10 to 11 minutes patient received 2 rounds of epinephrine, and patient was brought to the ER. this medical history was taken from the ER report as patient had prior to being seen by the admitted group. Per the medical record patient was in the process of being transferred to the ICU march 02 at around 11pm and heart dropped to the 30s and was brought back to trauma 2 bay and was found to have no pulse. CPR was initiated and epinephrine was given. Patient on march 02 appears to be around 2351 am. Patient was recently admitted to the hospital from 02/20 to 02/24 was treated for pulmonary embolism and hypoxic respiratory failure and discharged on eliquis. Some of the work up this admission includes brain CT showing no acute p rocess. EKG showing normal sinus rhythm with Moderate t wave abnormality, right bundle branch block. Initial chest xray showing NG tube, ET tube, multifocal consolidative opacities in both lungs, likely represents multifocal pneumonia, possible non displaced fracture of the right first rib- correlate for trauma history. Patient also had a chest abdomen pelvis CT showing multiple rib fractures with various degrees of displacement may be secondary to CPR. Bilateral pleural effusions and extensive pulmonary opacities bilaterally may be due to traumatic injury but edema and pneumonia are in considerations. No evidence of pneumothorax. ET tube, marshall catheter, and left femoral central venous lines appear in good position. Persistently abnormally placed NG tube that requires removal and replacement. Some sort of tubing is seen entering [place] and coiling within the lumen of the rectum. Correlate clinically. Mild body wall edema can be seen with third spacing of fluids. No clearly acute abnormality otherwise within the abdomen or pelvis. Blood work done white blood cell count 23.0, plt count of 57, INR 6.2, significantly elevated AST/ALT, Creatinine of 3.12. Patient had troponin elevation and elevated proBNP of 24,000. Patient in the ER. Review of systems Did not complete as patient was not evaluated by admitting provider. overnight. Patient on march 02 appears to be around 2351 am. There was not a clear time documented in the EMR regarding actual time of please refer to the code sheet. Physical Examination Not done as patient was not evaluated by admitting provider. overnight. Assessment and Plan Cardiac arrest Traumatic CPR leading to multiple rib fractures/displacement Transaminitis and coaguloapthy possibly shock liver Troponin elevation rule out ACS leading to cardiac arrest was not evaluated by cardiology Acute heart failure, systolic dysfunction UTI and sepsis present on admission Septic shock on pressors recent VQ scan showing intermediate probably for PE, possible thromboembolic disease and is now being anticoagulated with eliquis Hyponatremia, hypervolemic Acute kidney injury from acute tubular necrosis from infection and hypovolemia Hx COPD Valvular heart disease, including severe mitral regurgitation and mild aortic regurgitation Hyperkalemia from the WILLIAM Hypertension, HX of, required pressor support Hyperlipidemia Cde-wajxcwq-jbjcyqbul diabetes mellitus History of tobacco addiction Assessment strictly taken from the medical record, documentation from emergency provider and available diagnostic imaging and blood work. The impression and plan of care has been dictated by Nurse Erica Prac titioner as directed documented as a scribe. Dr. Chase MD I have performed a history and physical examination and medical decision making of this patient, discussed the same with the dictator, and agree with the dictators assessment and plan as written, documented as a scribe. Based on total visit time, I have performed more than 50% of this visit. Patient was not evaluated by admitting and attending physician in person only the ER physician. This dictation is solely taken from the medical record. Past Medical History Past Medical History: Asthma, COPD, Diabetes Mellitus, Eye Disorder, GERD/Reflux, Hyperlipidemia, Hypertension Additional Past Medical History / Comment(s): leaking heart valve History of Any Multi-Drug Resistant Organisms: None Reported Past Surgical History: Breast Surgery Additional Past Surgical History / Comment(s): EXC LT BREAST LUMP. COLONOSCOPY, EGD. Past Anesthesia/Blood Transfusion Reactions: No Reported Reaction Past Psychological History: No Psychological Hx Reported Smoking Status: Former smoker Past Alcohol Use History: None Reported Past Drug Use History: None Reported - Past Family History Mother Sister(s) Family Medical History: Cancer Medications and Allergies Home Medications Medication Instructions Recorded Confirmed Type Albuterol Inhaler [Ventolin Hfa 1 - 2 puff INHALATION RT-Q6H PRN 09/08/15 03/02/24 History Inhaler] Multivitamins, Thera [Multivitamin 1 tab PO DAILY 09/08/15 03/02/24 History (formulary)] Omeprazole [PriLOSEC] 20 mg PO DAILY 09/08/15 03/02/24 History metFORMIN HCL [Glucophage] 1,000 mg PO BID 09/08/15 03/02/24 History Furosemide [Lasix] 40 mg PO Q48H #30 tab 12/02/18 03/02/24 Rx amLODIPine [Norvasc] 5 mg PO DAILY 04/07/19 03/02/24 History predniSONE 5 mg PO DIRECTED 04/07/19 03/02/24 History Albuterol Nebulized [Ventolin 2.5 mg INHALATION RT-QID 02/21/24 03/02/24 History Nebulized] Alendronate Sodium 70 mg PO MO 02/21/24 03/02/24 History Calcium Carbonate [Calcium] 1,200 mg PO DAILY 02/21/24 03/02/24 History Cholecalciferol (Vitamin D3) 50 mcg PO DAILY 02/21/24 03/02/24 History [Vitamin D3 (50 Mcg = 2000 Iu)] Cyanocobalamin (Vitamin B-12) 1,000 mcg PO DAILY 02/21/24 03/02/24 History [Vitamin B-12] Eye Itch Relief Drops 1 drop BOTH EYES Q4HR PRN 02/21/24 03/02/24 History Ezetimibe [Zetia] 10 mg PO DAILY 02/21/24 03/02/24 History Fluticasone/Umeclidin/Vilanter 1 puff INHALATION RT-DAILY 02/21/24 03/02/24 History [Trelegy Ellipta 100-62.5-25] Ipratropium Nebulized [Atrovent 0.5 mg INHALATION RT-QID 02/21/24 03/02/24 History Nebulized 0.2 MG/ML] Losartan [Cozaar] 50 mg PO DAILY 02/21/24 03/02/24 History Lovastatin [Mevacor] 80 mg PO HS 02/21/24 03/02/24 History Ubidecarenone [Coenzyme Q10] 200 mg PO DAILY 02/21/24 03/02/24 History Vitamin E (Dl,Tocopheryl Acet) 450 mg PO DAILY 02/21/24 03/02/24 History [Vitamin E (1000 Iu = 450 MG)] Metoprolol Tartrate [Lopressor] 25 mg PO BID #30 tablet 02/25/24 03/02/24 Rx Apixaban [Eliquis] See Taper PO BID 03/02/24 03/02/24 History predniSONE See Taper PO DAILY 03/02/24 03/02/24 History Allergies Allergy/AdvReac Type Severity Reaction Status Date / Time aspirin Allergy Rash/Hives Verified 03/02/24 20:50 latex Allergy Rash/Hives Verified 03/02/24 20:50 Penicillins Allergy Unknown Verified 03/02/24 20:50 Childhood venom-honey bee Allergy Dyspnea, Verified 03/02/24 20:50 [bee venom (honey bee)] HIVES Results CBC & Chem 7: 03/02/24 21:35 03/02/24 19:30 Labs: Microbiology - Last 24 Hours (Table) 03/02/24 20:05 Blood Culture Gram Stain - Final Blood Blood Culture - Final Pseudomonas aeruginosa Clostridium innocuum 03/02/24 19:45 Blood Culture Gram Stain - Final Blood Blood Culture - Final Pseudomonas aeruginosa Clostridium innocuum
--- NOTE | 2024-03-06 09:32 | P.DS ---
Providers Date of admission: 03/02/24 21:44 Attending physician: David Jay Consults: 03/02/24 21:39 Consult Physician Routine Consulting Provider: [facility] Consult Reason/Comments: cardiac arrest Do you want consulting provider notified?: Yes 03/02/24 21:40 Consult Physician Stat Consulting Provider: Yoav Torres Consult Reason/Comments: shock, cardiac arrest, hypoxic respiratory failure, multiorgan failure Do you want consulting provider notified?: Already Contacted Primary care physician: Senthil Angel [facility] Course: This is an 83 year old female with medical history of asthma, COPD, diabetes mellitus, acid reflux, hypertension, hyperlipidemia, valvular heart disease. Patient comes into the hospital in the evening of March 02 around 7pm secondary to a cardiac arrest. Patient was a witnessed arrest at home in front of the EMS they originally presented to the house for weakness. Family reports that this patient has been having increased shortness of breath over the last few days. Patient has been on Eliquis for a pulmonary embolism. Patient was talking to EMS when they arrived and then she stared off and went pulseless and unresponsive. Downtime was about 10 to 11 minutes patient received 2 rounds of epinephrine, and patient was brought to the ER. this medical history was taken from the ER report as patient had prior to being seen by the admitted group. Per the medical record patient was in the process of being transferred to the ICU march 02 at around 11pm and heart dropped to the 30s and was brought back to trauma 2 bay and was found to have no pulse. CPR was initiated and epinephrine was given. Patient on march 02 appears to be around 2351 am. Patient was recently admitted to the hospital from 02/20 to 02/24 was treated for pulmonary embolism and hypoxic respiratory failure and discharged on eliquis. Some of the work up this admission includes brain CT showing no acute process. EKG showing normal sinus rhythm with Moderate t wave abnormality, right bundle branch block. Initial chest xray showing NG tube, ET tube, multifocal consolidative opacities in both lungs, likely represents multifocal pneumonia, possible non displaced fracture of the right first rib- correlate for trauma history. Patient also had a chest abdomen pelvis CT showing multiple rib fractures with various degrees of displacement may be secondary to CPR. Bilateral pleural effusions and extensive pulmonary opacities bilaterally may be due to traumatic injury but edema and pneumonia are in considerations. No evidence of pneumothorax. ET tube, marshall catheter, and left femoral central venous lines appear in good position. Persistently abnormally placed NG tube that requires removal and replacement. Some sort of tubing is seen entering [place] and coiling within the lumen of the rectum. Correlate clinically. Mild body wall edema can be seen with third spacing of fluids. No clearly acute abnormality ot herwise within the abdomen or pelvis. Blood work done white blood cell count 23.0, plt count of 57, INR 6.2, significantly elevated AST/ALT, Creatinine of 3.12. Patient had troponin elevation and elevated proBNP of 24,000. Patient in the ER. Review of systems Did not complete as patient was not evaluated by admitting provider. overnight. Patient on march 02 appears to be around 2351 am. There was not a clear time documented in the EMR regarding actual time of please refer to the code sheet. Physical Examination Not done as patient was not evaluated by admitting provider. overnight. Assessment and Plan Cardiac arrest Traumatic CPR leading to multiple rib fractures/displacement Transaminitis and coaguloapthy possibly shock liver Troponin elevation rule out ACS leading to cardiac arrest was not evaluated by cardiology Acute heart failure, systolic dysfunction UTI and sepsis present on admission Septic shock on pressors recent VQ scan showing intermediate probably for PE, possible thromboembolic disease and is now being anticoagulated with eliquis Hyponatremia, hypervolemic Acute kidney injury from acute tubular necrosis from infection and hypovolemia Hx COPD Valvular heart disease, including severe mitral regurgitation and mild aortic regurgitation Hyperkalemia from the [place]IAM Hypertension, HX of, required pressor support Hyperlipidemia Hvr-ffhcuji-rjpyfbrcv diabetes mellitus History of tobacco addiction Assessment strictly taken from the medical record, documentation from emergency provider and available diagnostic imaging and blood work. The impression and plan of care has been dictated by Nurse Giorgio Maldonado as directed documented as a scribe. Dr. Chase MD I have performed a history and physical examination and medical decision making of this patient, discussed the same with the dictator, and agree with the dictators assessment and plan as written, documented as a scribe. Based on total visit time, I have performed more than 50% of this visit. Patient was not evaluated by admitting and attending physician in person only the ER physician. This dictation is solely taken from the medical record. Plan - Discharge Summary New Discharge Prescriptions: No Action Omeprazole [PriLOSEC] 20 mg PO DAILY Multivitamins, Thera [Multivitamin (formulary)] 1 tab PO DAILY metFORMIN HCL [Glucophage] 1,000 mg PO BID Albuterol Inhaler [Ventolin Hfa Inhaler] 1 - 2 puff INHALATION RT-Q6H PRN PRN Reason: ASTHMA SX Furosemide [Lasix] 40 mg PO Q48H #30 tab predniSONE 5 mg PO DIRECTED amLODIPine [Norvasc] 5 mg PO DAILY Albuterol Nebulized [Ventolin Nebulized] 2.5 mg INHALATION RT-QID Ubidecarenone [Coenzyme Q10] 200 mg PO DAILY Cyanocobalamin (Vitamin B-12) [Vitamin B-12] 1,000 mcg PO DAILY Cholecalciferol (Vitamin D3) [Vitamin D3 (50 Mcg = 2000 Iu)] 50 mcg PO DAILY Eye Itch Relief Drops 1 drop BOTH EYES Q4HR PRN PRN Reason: itchy eyes Apixaban [Eliquis] See Taper PO BID Alendronate Sodium 70 mg PO MO Calcium Carbonate [Calcium] 1,200 mg PO DAILY Ezetimibe [Zetia] 10 mg PO DAILY Fluticasone/Umeclidin/Vilanter [Trelegy Ellipta 100-62.5-25] 1 puff INHALATION RT-DAILY Ipratropium Nebulized [Atrovent Nebulized 0.2 MG/ML] 0.5 mg INHALATION RT-QID Losartan [Cozaar] 50 mg PO DAILY Lovastatin [Mevacor] 80 mg PO HS Vitamin E (Dl,Tocopheryl Acet) [Vitamin E (1000 Iu = 450 MG)] 450 mg PO DAILY Metoprolol Tartrate [Lopressor] 25 mg PO BID #30 tablet predniSONE See Taper PO DAILY Discharge Medication List Albuterol Inhaler [Ventolin Hfa Inhaler] 1 - 2 puff INHALATION RT-Q6H PRN 09/08/15 [History] Multivitamins, Thera [Multivitamin (formulary)] 1 tab PO DAILY 09/08/15 [History] Omeprazole [PriLOSEC] 20 mg PO DAILY 09/08/15 [History] metFORMIN HCL [Glucophage] 1,000 mg PO BID 09/08/15 [History] Furosemide [Lasix] 40 mg PO Q48H #30 tab 12/02/18 [Rx] amLODIPine [Norvasc] 5 mg PO DAILY 04/07/19 [History] predniSONE 5 mg PO DIRECTED 04/07/19 [History] Albuterol Nebulized [Ventolin Nebulized] 2.5 mg INHALATION RT-QID 02/21/24 [History] Alendronate Sodium 70 mg PO MO 02/21/24 [History] Calcium Carbonate [Calcium] 1,200 mg PO DAILY 02/21/24 [History] Cholecalciferol (Vitamin D3) [Vitamin D3 (50 Mcg = 2000 Iu)] 50 mcg PO DAILY 02/21/24 [History] Cyanocobalamin (Vitamin B-12) [Vitamin B-12] 1,000 mcg PO DAILY 02/21/24 [History] Eye Itch Relief Drops 1 drop BOTH EYES Q4HR PRN 02/21/24 [History] Ezetimibe [Zetia] 10 mg PO DAILY 02/21/24 [History] Fluticasone/Umeclidin/Vilanter [Trelegy Ellipta 100-62.5-25] 1 puff INHALATION RT-DAILY 02/21/24 [History] Ipratropium Nebulized [Atrovent Nebulized 0.2 MG/ML] 0.5 mg INHALATION RT-QID 02/21/24 [History] Losartan [Cozaar] 50 mg PO DAILY 02/21/24 [History] Lovastatin [Mevacor] 80 mg PO HS 02/21/24 [History] Ubidecarenone [Coenzyme Q10] 200 mg PO DAILY 02/21/24 [History] Vitamin E (Dl,Tocopheryl Acet) [Vitamin E (1000 Iu = 450 MG)] 450 mg PO DAILY 02/21/24 [History] Metoprolol Tartrate [Lopressor] 25 mg PO BID #30 tablet 02/25/24 [Rx] Apixaban [Eliquis] See Taper PO BID 03/02/24 [History] predniSONE See Taper PO DAILY 03/02/24 [History] Follow up Appointment(s)/Referral(s): Senthil Angel DO [Primary Care Provider] - 1-2 days Discharge Disposition: - Preliminary Cause of Preliminary Cause of : Cardiac arrest with multiple organ system failure and septic shock
--- NOTE | 2024-03-07 11:44 | CDI ---
Documentation Clarification Form Date: 03/07/24 From: Jonna Christiansen Admit Date: 03/02/2024 09:44:00 PM Patient Name: Shannon Tian Visit Number: [id number] Discharge Date: 03/03/2024 01:42:00 AM ATTENTION: The Clinical Documentation Specialists (CDI) and [facility] Coding Staff appreciate your assistance in clarifying documentation. Please respond to the clarification below the line at the bottom and electronically sign. The CDI & [facility] Coding staff will review the response and follow-up if needed. Please note: Queries are made part of the Legal Health Record. If you have any questions, please contact the author of this message via ITS. Dr. Cristiano Stone, Your patient has troponin level(s) of: 0.681-03/02. Please clarify if there is an additional diagnosis and/or clinical significance related to this value. Patient history/risk factors: Sepsis, HTN w acute systolic CHF, acute on chronic hypoxic respiratory failure, ATN, severe sepsis with septic shock, pneumonia, UTI, cardiac arrest, liver failure Clinical indicators: SOB, hypotensive in ED and went into cardiac arrest. EKG does show a prolonged QTc and therefore patient was administered IV magnesium. Central line, vasopressors, NG tube, placed on mechanical ventilation IV sodium Bicarb Is there an additional diagnosis and/or clinical significance related to the above lab result/information: [ ] NSTEMI type 1 [ ] STEMI type 1 [ ] Type 2 [place] due to (specify cause ____) [ ] Non-ischemic with acute myocardial injury [ ] No additional diagnosis/Not clinically significant [ ] Other, please specify [ x] Unable to determine Reference: [employer] [place] Definition of Myocardial Infraction Elevated Cardiac Troponin >99th percentile with Troponin rise and/or fall With Acute ischemia Acute Myocardial Infarction Atherosclerosis thrombosis Type I [place] Oxygen supply and demand imbalance Type II [place] (Please indicate etiology) Without acute ischemia Acute Myocardial Injury MTDD
== END 2024-03-03 01:42 | disposition expired | DRG 871 ==
LOC: EC 19:11 → 2SICU 21:44
PROVIDERS: ADMIT Hospitalist; ATTEND Hospitalist
PROC: 0BH17EZ Insertion of Endotracheal Airway into Trachea, Via Natural or Artificial Opening (ICD-10-PCS; principal; 2024-03-02)
PROC: 5A1935Z Respiratory Ventilation, Less than 24 Consecutive Hours (ICD-10-PCS; principal; 2024-03-02)
PROC: 5A12012 Performance of Cardiac Output, Single, Manual (ICD-10-PCS; 2024-03-02)
PROC: 06HY33Z Insertion of Infusion Device into Lower Vein, Percutaneous Approach (ICD-10-PCS; 2024-03-02)
PROC: 3E043XZ Introduction of Vasopressor into Central Vein, Percutaneous Approach (ICD-10-PCS; 2024-03-02)
PROC: 0D9670Z Drainage of Stomach with Drainage Device, Via Natural or Artificial Opening (ICD-10-PCS; 2024-03-02)
DX: A41.9 Sepsis, unspecified organism (principal); I50.21 Acute systolic (congestive) heart failure; J96.21 Acute and chronic respiratory failure with hypoxia; N17.0 Acute kidney failure with tubular necrosis; R65.21 Severe sepsis with septic shock; J18.9 Pneumonia, unspecified organism; J44.0 Chronic obstructive pulmonary disease with (acute) lower respiratory infection; E87.1 Hypo-osmolality and hyponatremia; M96.A3 Multiple fractures of ribs associated with chest compression and cardiopulmonary resuscitation; N39.0 Urinary tract infection, site not specified; I46.9 Cardiac arrest, cause unspecified; R57.1 Hypovolemic shock; K72.90 Hepatic failure, unspecified without coma; E11.649 Type 2 diabetes mellitus with hypoglycemia without coma; I11.0 Hypertensive heart disease with heart failure; I08.0 Rheumatic disorders of both mitral and aortic valves; E87.5 Hyperkalemia; E78.5 Hyperlipidemia, unspecified; E86.1 Hypovolemia; I45.10 Unspecified right bundle-branch block; K21.9 Gastro-esophageal reflux disease without esophagitis; R79.89 Other specified abnormal findings of blood chemistry; R79.1 Abnormal coagulation profile; Z79.83 Long term (current) use of bisphosphonates; Z79.01 Long term (current) use of anticoagulants; Z79.51 Long term (current) use of inhaled steroids; Z79.84 Long term (current) use of oral hypoglycemic drugs; Z79.899 Other long term (current) drug therapy; Z87.891 Personal history of nicotine dependence; Z88.6 Allergy status to analgesic agent; Z91.040 Latex allergy status; Z88.0 Allergy status to penicillin
CPT/HCPCS: 31500; 36415; 36556; 36600; 70450; 71250; 74176; 80053; 80306; 81001; 82140; 82805; 83605; 83880; 84484; 85025; 85610; 85730; 87040; 87449; 87636; 92950; 93005; 94002; 96365; 96366; 96368; 96375; 96376; 99291